=== PATIENT | male | born 1960 | race Caucasian/White ===

== ENCOUNTER → 2023-07-31 06:22 | Day surgery (SDC) | payer MEDICARE, OTHER, SELFPAY ==
[2023-07-31 08:05] LABS: Glucose - Point of Care 186 mg/dl (70-99)
== END ==
LOC: GI 06:22
PROVIDERS: ATTENDING PHYSICIAN Internal Medicine Gastroenterology
DX: K21.00 Gastro-esophageal reflux disease with esophagitis, without bleeding (principal); K22.10 Ulcer of esophagus without bleeding; Z53.8 Procedure and treatment not carried out for other reasons
CPT/HCPCS: 43235; 82962; G0378

== ENCOUNTER 2023-07-31 11:53 | Inpatient (IN) | payer MEDICARE, OTHER, SELFPAY ==
[2023-07-31] VITALS (8 sets, daily range): BP systolic 123–172; BP diastolic 57–121; BMI 29.5; BMI 28.8
[2023-07-31 09:37] LABS: % Basophils 0.5 % (0-2); % Eosinophils 0.3 % (0-6); % Immature Granulocytes 0.6 % (0-0.5); % Lymphocytes 2.5 % (20.5-51.1); % Monocytes 6.7 % (1.7-9.3); % Neutrophils 89.4 % (42.2-75.2); Absolute Basophils 0.1 10^3/uL (0-0.2); Absolute Immature Granulocytes 0.1 10^3/uL (0-0.05); Absolute Lymphocytes 0.3 10^3/uL (1.2-3.4); Absolute Monocytes 0.9 10^3/uL (0.1-0.6); Absolute Neutrophils 11.7 10^3/uL (1.4-6.5); Hematocrit 27.5 % (39.0-52.0); Hemoglobin 9.3 g/dL (13.0-18.0); Mean Corp Hgb Conc. 33.8 g/dL (33.0-37.0); Mean Corpuscular Hgb 31.2 pg (27.0-31.0); Mean Corpuscular Volume 92.3 fL (80.0-94.0); Mean Platelet Volume 9.4 fL (7.4-10.4); Nucleated Red Blood Cells % 0 % (-); Platelet Count 150 10^3/uL (130-400); Red Blood Cell Count 2.98 10^6/uL (4.70-6.10); Red Cell Dist. Width 13.5 % (11.5-14.5); White Blood Cell Count 13.1 10^3/uL (4.8-10.8)
[2023-07-31 09:47] LABS: ALT (SGPT) 30 U/L (0-50); AST (SGOT) 33 U/L (17-59); Albumin 3.9 g/dl (3.5-5.0); Alkaline Phosphatase 122 U/L (38-126); Blood Urea Nitrogen 38 mg/dl (9-20); Calcium 8.7 mg/dl (8.4-10.2); Carbon Dioxide 17 mmol/L (22-30); Chloride 104 mmol/L (98-107); Estimated Creatinine Clearance 32 ml/min; Glucose 182 mg/dl (70-99); Potassium 4.8 mmol/L (3.5-5.1); Sodium 130 mmol/L (135-145); Total Protein 6.4 g/dl (6.3-8.2); eGFR 29.76
[2023-07-31 10:00] LABS: NT-proBNP 4730 pg/ml; Troponin I < 0.012 ng/ml
--- NOTE | 2023-07-31 10:05 | ED.GENMED ---
History of Present Illness
General
Chief Complaint: Breathing Problem
Source: patient and spouse
Time Seen by Provider: 07/31/23 09:04
Travel History
Have you had any contact with someone who has COVID-19?: No
Do you have any symptoms of coronavirus? Fever > 100 degrees, chills, cough, shortness of breath, sore throat, loss of taste or smell, muscle aches, or headache?: No
History of Present Illness
History of Present Illness:
63-year-old male with history of kidney transplant who presents with progressive dyspnea over the last week. Patient states that initially was just when he moves around but now he is severely short of breath at night when he tries to lay flat. He
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 He states he has been very stable since his renal transplant. No fevers. Does admit to bilateral lower extremity swelling. No chest pain
Past History
Past History
ED Past Medical History: HTN, NIDDM and Other (renal transplant)
ED Past Surgical History: Urological (Kidney transplant 2019)
Social History
Tobacco: Former smoker
Alcohol: Daily (Wine)
Personal:
Living: with family
Employment: Employed
Phy Exam
Physical Exam
Physical Exam:
CONSTITUTIONAL Patient alert and oriented to person, place and time. Well-appearing. Vital signs reviewed.
HEAD atraumatic, normocephalic.
EYES eyelids normal to inspection, Extraocular muscles intact, Conjunctiva normal, Sclera normal.
NECK normal range of motion, Trachea midline, no jugular venous distention.
RESPIRATORY CHEST No respiratory distress noted, Chest expansion equal, diminished at bilateral bases.
CARDIOVASCULAR regular rate and rhythm, Heart sounds normal.
ABDOMEN No distention.
BACK normal inspection, no obvious deformities
UPPER EXTREMITY range of motion normal, Motor strength normal, no cyanosis, no edema.
LOWER EXTREMITY range of motion normal, Motor strength normal, no cyanosis, bilateral lower extremity edema.
NEURO Speech normal, No focal motor deficits, [place] coma scale 15, Memory normal, Cranial Nerves intact to screening exam.
SKIN skin warm, dry, and normal in color.
PSYCHIATRIC patient oriented to person place and time, Normal affect.
Scores
Heart Failure Risk
Heart Failure Risk Score: Not Applicable
Course
Orders/Labs/Results
Orders:
Orders
07/31/23 09:25
Complete Blood Count/With Diff Urgent
Comprehensive Metabolic Panel Urgent
Pro-BNP [NT-proBNP] Urgent
Troponin I Urgent
07/31/23 09:39
CR Chest - 2 Views Urgent
Comment:
Reason For Exam: sob
07/31/23 10:04
Furosemide [Lasix] 40 mg IV NOW STA
07/31/23 10:54
Electrocardiogram (*1) Urgent
Reason for Study: Shortness of Breath
EKG- Treatment ONCE
07/31/23 11:33
Admit/Transfer Patient As Directed
Co-Sign Provider:
Level of Care: Inpatient admission
Assign to:: Telemetry
Physician / Group: Serafin
Diagnosis: CHF
Reason for Telemetry: Acute Heart Failure
Date to Stop Telemetry: 08/03/23
Time to Stop Telemetry: 11:00
Reason for Hospitalization: See progress note
Expected length of stay greater than two midnights?: Yes
ELOS- Estimated Length of Stay in days: 3
I certify the patient meets the requirements for IP care: Yes
07/31/23 11:39
Code Status As Directed
Resuscitation Status: Full Code
07/31/23 14:07
Acetaminophen [Tylenol] 1,000 mg PO BIDPRN PRN
Amlodipine [Norvasc] 10 mg PO DAILY
Aspirin Chewable [Low Strength Aspirin] 81 mg PO DAILY
Escitalopram Oxalate [Lexapro] 10 mg PO DAILY
Labetalol [Trandate] 200 mg PO BID
Mycophenolic Acid Dr [Myfortic Delayed Rel.] 360 mg PO BID
Prednisone [Deltasone] 5 mg PO DAILY
Sodium Bicarbonate 650 mg PO DAILY
07/31/23 14:07
Echo 2D MMode Color/Doppler Routine
Reason for Study: Eval EF;New CHF; Renal transplant
CARDIOLOGY CONSULT Routine
Consulting Provider: Gilbert Decker
Was physician already notified: Yes
Reason for consult: CHF
NEPHROLOGY CONSULT Routine
Consulting Provider: Jenny Cristobal
Was physician already notified: Yes
Reason for consult: CHF/Renal transplant
Activity As Directed
Activity Level: As Tolerated
I&O [Intake/ Output] As Directed
Frequency: q12h
Oxygen Therapy [O2 Therapy] [RESP] Routine
Titrate/Wean O2 to maintain O2 sat greater than (%): 93
DX Deep Vein Thrombosis Video Routine
07/31/23 14:30
Sitagliptin Phosphate [Januvia] 50 mg PO DAILY
07/31/23 16:30
Insulin Aspart Pen [Novolog Flexpen] 2 units SC AC
07/31/23 20:00
Heparin 5,000 units SC Q12
07/31/23 22:00
Gabapentin [Neurontin] 300 mg PO HS
Pravastatin Sodium [Pravachol] 10 mg PO HS
08/01/23 06:14
Basic Metabolic Panel IN AM
CBC/No Diff [Complete Blood Count/No Diff] IN AM
08/01/23 08:00
Furosemide [Lasix] 40 mg IV DAILY
08/03/23 11:00
DC Protocol for Telemetry ONCE
Abnormal Lab Results
07/31/23
09:25
WBC 13.1 H 10^3/uL
(4.8-10.8)
RBC 2.98 L 10^6/uL
(4.70-6.10)
Hgb 9.3 L g/dL
(13.0-18.0)
Hct 27.5 L %
(39.0-52.0)
MCH 31.2 H pg
(27.0-31.0)
Abs Immat Gran (auto) 0.1 H 10^3/uL
(0-0.05)
Absolute Neuts (auto) 11.7 H 10^3/uL
(1.4-6.5)
Absolute Lymphs (auto) 0.3 L 10^3/uL
(1.2-3.4)
Absolute Monos (auto) 0.9 H 10^3/uL
(0.1-0.6)
Immature Gran % 0.6 H %
(0-0.5)
Neutrophils % 89.4 H %
(42.2-75.2)
Lymphocytes % 2.5 L %
(20.5-51.1)
Sodium 130 L mmol/L
(135-145)
Carbon Dioxide 17 L mmol/L
(22-30)
BUN 38 H mg/dl
(9-20)
Creatinine 2.4 H mg/dL
(0.7-1.3)
Glucose 182 H mg/dl
(70-99)
07/31/23 09:25
07/31/23 09:25
Vital Signs
Initial and Last Documented VS:
Initial Vital Signs
Temp Pulse Resp BP Pulse Ox
98.9 F 76 22 159/87 89
07/31/23 09:00 07/31/23 09:00 07/31/23 09:00 07/31/23 09:00 07/31/23 09:00
Last Documented Vital Signs
Temp Pulse Resp BP Pulse Ox
98.1 F 68 16 148/79 91
08/02/23 11:26 08/02/23 11:26 08/02/23 11:26 08/02/23 11:26 08/02/23 11:26
MDM/Problems Addressed
MDM/Problems Addressed:
CHF, s/p renal transplant
*Radiology
Radiology exam reviewed: preliminary read by ED provider (CHF)
*Pulse Oximetry
Patient hypoxic: no
*Critical Care Note
Total Time (30-74mins, 75-104mins- exclusive of procedures): Not Applicable
ED Attending Note
-
Portions of this chart may have been created with voice recognition software.� Occasional wrong word or��sound alike� substitutions may have occurred due to the inherent limitations of voice recognition software.
Discharge Plan
Departure
Patient Disposition: Admit
Date of Disposition: 07/31/23
Time of Disposition: 10:05
Admit to: Telemetry
Presentation/result/management discussed w/ accepting MD/DO: Hospitalist
Discharge Problem:
CHF (congestive heart failure)
Interventions
Interventions:
*Risk Screen - Suicide Last Done: 07/31/23 09:00
*General Assessment Last Done: 07/31/23 09:00
*Neglect/Abuse Screening Last Done: 07/31/23 09:00
ED- Fall Risk Assessment Last Done: 07/31/23 10:17
*ED COVID-19 Vaccine History Last Done: 07/31/23 09:12
*Nursing Disposition Last Done: 07/31/23 14:03
ED- Cardiac Assessment Last Done: 07/31/23 09:16
ED- Pulmonary Assessment Last Done: 07/31/23 09:16
Discharge Date and Time
Discharge Date/Time: 07/31/23 14:03
[2023-07-31] MEDS: LASIX 40 MG IV (10:15)
--- NOTE | 2023-07-31 12:08 | CON.CAR ---
Addendum entered and electronically signed by Gilbert Decker MD 07/31/23 13:12:
I saw and examined the patient.
The PUMPER GAGER APPRENTICE or PA's note was reviewed and I agree with the note.
Comment: General: Well developed, well nourished in NAD.
Neck: Supple, no JVD, HJR, carotids +2 B/L, no bruits bilaterally.
Heart: Non displaced PMI, RRR, no murmurs, No S3, S4, no rubs.
Lungs: Clear to auscultation bilaterally, no wheeze, rhonchi, rubs bilaterally,
normal expiratory phase.
Abdomen: Normal bowel sounds, soft, non-tender, non-distended.
Extremities: No clubbing, cyanosis or edema bilaterally.
Neuro: Grossly nonfocal, awake, alert and oriented x3.
Eugenio has history of renal transplant with stage IIIb renal insufficiency, hypertension, carotid disease status post bilateral carotid endarterectomy, diabetes, hypertension, hypercholesterolemia, severe thickening of distal esophagus by imaging.
He presents for at least a 15 pound weight gain with increasing lower extremity edema and shortness of breath. Findings are consistent with acute diastolic CHF. Will assess with diuresis. Check echocardiogram. Will need to follow renal function
closely. Discussed with patient and at bedside
Original Note:
Consultation
Consultation Request
Date/Time Consultation Requested: 07/31/23
Date/Time Consultation Performed: 07/31/23
Requesting Provider: Dr. Coulter in the ER
Performing Provider: Dr. Decker
Reason for Consultation: Acute HF, s/p renal transplant
Medical History
-
History of Present Illness:
Patient came to [facility] today with orthopnea and SOB and is now being admitted with acute HF and cardiology has been consulted. Patient has a h/o diabetic nephropathy and was previously on PD. He then had a renal transplant in 2019 at [facility]. He had acute
cellular rejection and now has continued post-transplant failure that is managed at [facility]. Patient was admitted to 05/02/23 until 05/06/23 with HTN urgency. Nephrology followed patient throughout that admission, of note the patient previously
followed with Dr. Horton, but switched to a [place] olive picker a year ago. Medication changes from that admission included the discontinuation of losartan and possibly lisinopril and the addition of labetalol 200 mg BID. Patient does not take a
diuretic. Patient says that he noticed weeks ago that he was SOB and within the last few days started with orthopnea. He has noticed LE edema and bloating, but no changes in appetite. He likes to drink a lot of water.
PMH:
CKD 3b
Recent admission for DKA and HTN urgency 05/02/23 until 05/06/23
s/p renal transplant at [facility] 01/2020
HTN
s/p living, unrelated renal transplant RLQ at [facility] 01/15/20
previously on PD
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
was not taking mycophenolate 2020 until 2022, he forgot
Chronic immunosuppressed state
Carotid artery disease s/p B/L carotid endarterectomy 2017
Type 2 diabetes
Diabetic nephropathy
Hypertension
Hypercholesterolemia
Depression
Anemia
Hyponatremia
Severe thickening of distal esophagus by imaging
Past Medical History
Past Medical History: Other (in HPI)
Past Surgical History: Cardiac (right CEA 08/2017, left CEA 02/2018) and Other (renal transplant at [facility] 01/2020)
Social History
Tobacco: Non-Smoker
Alcohol: Occasional
Drug: None
Personal:
Living: With Family
Family History
Family History: CAD
Allergies / Home Medications
Allergy/AdvReac Type Severity Reaction Status Date / Time
No Known Allergies Allergy Verified 07/31/23 08:59
Medication Instructions Recorded Confirmed Type
insulin glargine 100 unit/mL (3 3 units SC DAILY@1200 Diabetes 07/30/20 07/31/23 History
mL) subcutaneous pen (Lantus
Solostar U-100 Insulin)
linagliptin 5 mg tablet (Tradjenta) 5 mg PO DAILY Diabetes 07/30/20 07/31/23 History
insulin aspart U-100 100 unit/mL 2 units SC MEALS Diabetes 08/03/20 07/31/23 History
(3 mL) subcutaneous pen (Novolog
FlexPen U-100 Insulin aspart)
aspirin 81 mg chewable tablet 81 mg PO DAILY Blood clot 09/02/21 07/31/23 History
prevention/tx
gabapentin 300 mg capsule 300 mg PO HS Pain 09/02/21 07/31/23 History
acetaminophen 500 mg tablet 1,000 mg PO BIDPRN PRN mild pain 05/02/23 07/31/23 History
(Tylenol Extra Strength)
amlodipine 10 mg tablet (Norvasc) 10 mg PO DAILY Blood Pressure 05/02/23 07/31/23 History
escitalopram oxalate 10 mg tablet 10 mg PO DAILY Mental 05/02/23 07/31/23 History
(Lexapro) Health/Anxiety
losartan 25 mg tablet 25 mg PO DAILY Blood Pressure 05/02/23 07/31/23 History
mycophenolate sodium 180 mg 360 mg PO BID renal transplant 05/02/23 07/31/23 History
tablet,delayed release
pravastatin 10 mg tablet 10 mg PO HS High Cholesterol 05/02/23 07/31/23 History
prednisone 5 mg tablet 5 mg PO DAILY Anti-Inflammatory 05/02/23 07/31/23 History
sodium bicarbonate 650 mg tablet 650 mg PO DAILY Supplement 05/02/23 07/31/23 History
Medical Marijuana 0.5 gummy PO HSPRN PRN sleep 07/31/23 07/31/23 History
labetalol 200 mg tablet 200 mg PO BID Blood Pressure 07/31/23 07/31/23 History
Review of Systems
-
History Source: Patient and Family ( bedside helping with HPI)
All other systems: Negative unless noted
Physical Exam
Vital Signs
Temp Pulse Resp BP Pulse Ox
98.9 F 71 20 171/88 92
07/31/23 09:00 07/31/23 12:00 07/31/23 12:00 07/31/23 12:00 07/31/23 12:00
GEN: NAD. AAOx3
HEENT: EOMI, MMM
LUNGS: Decreased BS and rales B/L
CV: Reg, S1/S2, no murmur
ABD: Mildly distended, soft, BS+, NT
EXT: +1-2 pitting edema to upper thighs B/L. No clubbing, cyanosis or lesions B/L
NEURO: Gross non-focal
SKIN: Warm, dry and pink. No rash
Lab Results
07/31/23 09:25
07/31/23 09:25
Troponin I < 0.012 ng/ml 07/31/23 09:25
Pri-Y-Ioizsnheyyo Pept 4730 pg/ml 07/31/23 09:25
Impression / Plan
-
PCP: Dr. Vincent
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 ISABEL Ruiz in 2020
Nephrology: Dr. Escobar in [place], renal transplant managed at [facility]
Impression:
Acute HFpEF
Recent admission for DKA and HTN urgency 05/02/23 until 05/06/23
SONALI on CKD 3b
s/p renal transplant at [facility] 01/2020
HTN
s/p living, unrelated renal transplant RLQ at [facility] 01/15/20
previously on PD
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
was not taking mycophenolate 2020 until 2022, he forgot
Chronic immunosuppressed state
Carotid artery disease s/p B/L carotid endarterectomy 2017
Type 2 diabetes
Diabetic nephropathy
Hypertension
Hypercholesterolemia
Depression
Anemia
Pseudohyponatremia
Severe thickening of distal esophagus by imaging
Lexiscan nuclear stress test 2019: Small mild fixed defect in basal inferior, mid inferior and apical inferior segment consistent with STA, EF 50 to 55%
ECHO 06/17/19: EF 55%, no significant valvular disease, mild LVH
Plan:
-Patient came to [facility] today with orthopnea and SOB and is now being admitted with acute HF and cardiology has been consulted. Patient has a h/o diabetic nephropathy and was previously on PD. He then had a renal transplant in 2019 at [facility]. He had
acute cellular rejection and now has continued post-transplant failure that is managed at [facility]. Patient was admitted to 05/02/23 until 05/06/23 with HTN urgency. Nephrology followed patient throughout that admission, of note the patient previously
followed with Dr. Horton, but switched to a [place] olive picker a year ago. Medication changes from that admission included the discontinuation of losartan and possibly lisinopril and the addition of labetalol 200 mg BID. Patient does not take a
diuretic. Patient says that he noticed weeks ago that he was SOB and within the last few days started with orthopnea. He has noticed LE edema and bloating, but no changes in appetite. He likes to drink a lot of water.
-Dry weight at last discharge 05/06/23 was 161 lbs and patient weighs 199 lbs by ER bed scale. Patient does not weight himself at home, but has noticed orthopnea and edema. He has pitting edema to the upper thighs.
-Patient was not taking a diuretic prior to admission. Patient was given Lasix 40 mg IV x1 in the ER. Recommend Lasix 40 mg IV daily with daily BMP.
-Cre was 2.1 at last discharge 04/2023 and is up to 2.4 in the ER today by my review. Patient now following with a olive picker in [place] and his renal transplant is managed by [facility]. There is concern for post-transplant failure and he had FSGS
on biopsies in 2021 and 2022.
-Follow BP. Patient with HTN urgency last admission. Would continue usual doses of amlodipine 10 mg daily and labetalol 200 mg BID for now. Nephrology should see the patient and decide if they want him back on losartan while being diuresed.
-Patient was on PD prior to his renal transplant in 2019.
-Check echo, EF was 55% by last echo 06/17/19.
-Patient is anxious about fluid restriction. Patient with a h/o hyponatremia and not following fluid restriction. Will start at 64 oz a day and then tighten fluid restriction as needed.
-ECG reviewed by me with SR and no ischemic changes.
--- NOTE | 2023-07-31 12:09 | HPS.HSE ---
Family Physician
-
Family Physician: Germaine Vincent
Chief Complaint
-
Lower extremity edema shortness of breath
History of Present Illness
61-year-old gentleman with a prior history of renal transplant on immunosuppressive agents presents with the above symptoms.
About a week and half he has been having increasing lower extremity edema. Later on he started noticed exertional shortness of breath. Last 2 days he was having orthopnea. No chest pain but when he would become short of breath he feels pressure
in the chest. No palpitations.
Denies prior history of heart failure. Not on diuretics.
Denies history of CAD or DC.
Follows with local vegetable tester but cannot tell the reasons for follow-up.
A week ago he saw his primary ship engineer who has stopped his losartan.
Patient states he is on 48 ounces of fluid restriction which he tries to maintain.
Denies any cough, fever. No nausea or vomiting. No lightheadedness or dizziness.
No recent changes in his health before all the symptoms started.
Medical History
Past Medical History
Past Medical History: Reports HTN, IDDM, Renal Failure and Other (Esophageal ulcers and duodenal ectasias)
Past Surgical History: Reports Other (Renal transplant)
Social History
Tobacco: Non-smoker
Alcohol: None
Drug: None
Personal:
Living: With Family
Family History
Family History: Not pertinent
Allergies / Home Medications
Allergies reflects when Allergies were last updated in [facility].
Home Medications with original date entered in [facility]
Allergy/Medication List:
Allergies
Allergy/AdvReac Type Severity Reaction Status Date / Time
No Known Allergies Allergy Verified 07/31/23 08:59
Home Medications
insulin glargine 100 unit/mL (3 mL) subcutaneous pen (Lantus Solostar U-100 Insulin) 3 units SC DAILY@1200 Diabetes 07/30/20
linagliptin 5 mg tablet (Tradjenta) 5 mg PO DAILY Diabetes 07/30/20
insulin aspart U-100 100 unit/mL (3 mL) subcutaneous pen (Novolog FlexPen U-100 Insulin aspart) 2 units SC MEALS Diabetes 08/03/20
aspirin 81 mg chewable tablet 81 mg PO DAILY Blood clot prevention/tx 09/02/21
gabapentin 300 mg capsule 300 mg PO HS Pain 09/02/21
acetaminophen 500 mg tablet (Tylenol Extra Strength) 1,000 mg PO BIDPRN PRN mild pain 05/02/23
amlodipine 10 mg tablet (Norvasc) 10 mg PO DAILY Blood Pressure 05/02/23
escitalopram oxalate 10 mg tablet (Lexapro) 10 mg PO DAILY Mental Health/Anxiety 05/02/23
losartan 25 mg tablet 25 mg PO DAILY Blood Pressure 05/02/23
mycophenolate sodium 180 mg tablet,delayed release 360 mg PO BID renal transplant 05/02/23
pravastatin 10 mg tablet 10 mg PO HS High Cholesterol 05/02/23
prednisone 5 mg tablet 5 mg PO DAILY Anti-Inflammatory 05/02/23
sodium bicarbonate 650 mg tablet 650 mg PO DAILY Supplement 05/02/23
Medical Marijuana 0.5 gummy PO HSPRN PRN sleep 07/31/23
labetalol 200 mg tablet 200 mg PO BID Blood Pressure 07/31/23
Review of Systems
-
A 12 point ROS was completed and negative except as noted: Yes
Physical Exam
Vital Signs
Vital Signs
Temp Pulse Resp BP Pulse Ox
98.9 F 71 20 171/88 92
07/31/23 09:00 07/31/23 12:00 07/31/23 12:00 07/31/23 12:00 07/31/23 12:00
Physical Exam
General: Comfortable
HEENT: Moist mucous membranes
Respiratory: No Wheezes or Crackles
Cardiac: S1/S2 and Regular Rhythm
GI: Soft, Non Tender, Non Distended and Normal Bowel Sounds
Musculoskeletal: Edema, Left Lower Extremity and Edema, Right Lower Extremity (2+ bl)
Neuro: AO x 3 and No Motor Deficits
Psych: Calm
Laboratory Results
-
07/31/23:25
07/31/23:
Laboratory Results
Total Bilirubin 1.0 mg/dl (0.2-1.3) 07/31/23:
AST 33 U/L (17-59) 07/31/23:
ALT 30 U/L (0-50) 07/31/23:
Alkaline Phosphatase 122 U/L (38-126) 07/31/23:
Troponin I < 0.012 ng/ml 07/31/23:
Data Reviewed
-
Diagnostic Radiology: Report Reviewed by me (cxr)
Lab Data: Labs Reviewed by me
Impression/Plan
-
Acute new onset of CHF -patient presents with progressive lower extremity edema, exertional shortness of breath and orthopnea. He has a chest x-ray evidence of CHF. Negative troponins. EKG without acute changes. Unclear etiology for CHF. Last
known EF in 2020 was 55%. Patient with chronic kidney disease/renal transplant. He also has hypertension.
Admit to telemetry.
Continue with IV Lasix.
Continue with his antihypertensives and follow blood pressure readings and optimize treatments as needed
Check an echocardiogram.
Consult cardiology.
Chronic kidney disease stage IIIb. Today's creatinine is 2.4 which is higher than 2.11 from April. Unclear if it is heart failure related. Will continue to follow on diuresis. Patient is known to have renal transplant. Consult nephrology.
Hypertension-continue with his home medication and optimize treatments as needed.
Diabetes mellitus type 2 on insulin-continue with his home insulin regimen and follow Accu-Cheks.
Full code
--- NOTE | 2023-07-31 15:00 | CON.MD ---
Consultation - Medical
-
Assessment:
Acute on chr CHF pEF
Renal transplant (02/18/20) [facility]-living unrelated
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
Hypertension with history of orthostasis
[place] with CKD 3b -last cr 2.1 at [facility] visit this month-Dr Leon
CHr met acidosis
Carotid artery disease s/p B/L carotid endarterectomy 2017
Type 2 diabetes
Diabetic nephropathy
Hypercholesterolemia
Depression
Anemia
Hyponatremia
Severe thickening of distal esophagus by imaging
Plan:
A/w CHF flare
[facility] -suspect cardiorenal, check UA, known h/o FSGS on biopsy with proteinuria
cotn pred and MMF, off envarsus for few months now
pt still on monthly infusion at [facility]
cont diuresis with lasix
fluid restriction 50 ounces/day, was drinking more at home
hyponatremia likely dilutional with CHF
BP stable, losartan held since recent nephro visit
cotn po bciarb for chr met acidosis
follow labs
[id number]
[2023-07-31] MEDS: SODIUM BICARBONATE 650 MG PO (15:12)
[2023-07-31] MEDS: NORVASC 10 MG PO (15:12)
[2023-07-31] MEDS: LOW STRENGTH ASPIRIN 81 MG PO (15:12)
[2023-07-31] MEDS: LEXAPRO 10 MG PO (15:12)
[2023-07-31] MEDS: DELTASONE 5 MG PO (15:12)
[2023-07-31] MEDS: MYFORTIC DELAYED REL. 360 MG PO ×2 (15:13→20:42)
[2023-07-31] MEDS: LANTUS 0.0299999999999999989 UNITS SC (15:14)
[2023-07-31] MEDS: TRANDATE 200 MG PO ×2 (15:14→20:41)
[2023-07-31] MEDS: JANUVIA 50 MG PO (15:19)
[2023-07-31] MEDS: ZOFRAN 4 MG IV (15:45)
[2023-07-31 15:55] LABS: Glucose - Point of Care 178 mg/dl (70-99)
--- NOTE | 2023-07-31 16:17 | PTCARENOTE ---
pt admitted from ED AOx3, B/L LL diminished, 93% on 4L. NSR. abd round obese hypoactive BS. pt reports last BM this AM. pt complaining of nausea. prn zofran obtained. skin CDI +1 pitting LE edema.
[2023-07-31] MEDS: NOVOLOG FLEXPEN 2 UNITS SC (17:02)
[2023-07-31] MEDS: NOVOLOG FLEXPEN-LOW RESISTANCE 1 UNITS SC (17:03)
[2023-07-31 17:24] LABS: Glucose - Point of Care 172 mg/dl (70-99)
[2023-07-31] MEDS: PRAVACHOL 10 MG PO (20:41)
[2023-07-31] MEDS: NEURONTIN 300 MG PO (20:42)
[2023-07-31] MEDS: HEPARIN 5000 UNITS SC (20:42)
[2023-07-31 21:31] LABS: Glucose - Point of Care 249 mg/dl (70-99)
[2023-07-31 23:48] LABS: Urine Albumin 3+ (Neg - Trace); Urine Bilirubin Negative (Negative); Urine Character Clear (Clear); Urine Color Yellow; Urine Glucose 1+ (Negative); Urine Ketone Negative (Negative); Urine Leukocyte Negative (Negative); Urine Nitrite Negative (Negative); Urine Occult Blood Trace (Negative); Urine Urobilinogen Negative (Neg - 1+)
[2023-08-01 00:15] LABS: Urine Amorphous Seen; Urine Bacteria Few (Negative); Urine Red Blood Cell 0-2 /HPF (0-2); Urine White Cell 0-2 /HPF (0-5)
[2023-08-01 03:35] VITALS: BP 166/88
[2023-08-01 06:00] VITALS: BMI 28.6
[2023-08-01 06:49] LABS: Hematocrit 26.5 % (39.0-52.0); Hemoglobin 8.9 g/dL (13.0-18.0); Mean Corp Hgb Conc. 33.6 g/dL (33.0-37.0); Mean Corpuscular Hgb 31.4 pg (27.0-31.0); Mean Corpuscular Volume 93.6 fL (80.0-94.0); Mean Platelet Volume 9.6 fL (7.4-10.4); Platelet Count 139 10^3/uL (130-400); Red Blood Cell Count 2.83 10^6/uL (4.70-6.10); Red Cell Dist. Width 13.2 % (11.5-14.5); White Blood Cell Count 12.2 10^3/uL (4.8-10.8)
[2023-08-01 07:33] LABS: Glucose - Point of Care 189 mg/dl (70-99)
[2023-08-01 07:38] LABS: Blood Urea Nitrogen 38 mg/dl (9-20); Calcium 8.7 mg/dl (8.4-10.2); Carbon Dioxide 21 mmol/L (22-30); Chloride 98 mmol/L (98-107); Estimated Creatinine Clearance 32 ml/min; Glucose 160 mg/dl (70-99); Potassium 4.2 mmol/L (3.5-5.1); Sodium 129 mmol/L (135-145); eGFR 29.76
[2023-08-01 07:39] VITALS: BP 147/72
[2023-08-01 08:31] LABS: Glycohemoglobin (HgbA1c) 5.9 % (4.0-5.6)
[2023-08-01] MEDS: HEPARIN 5000 UNITS SC ×2 (08:42→20:37)
[2023-08-01] MEDS: LASIX 40 MG IV (08:42)
[2023-08-01] MEDS: LOW STRENGTH ASPIRIN 81 MG PO (08:43)
[2023-08-01] MEDS: NORVASC 10 MG PO (08:43)
[2023-08-01] MEDS: SODIUM BICARBONATE 650 MG PO (08:44)
[2023-08-01] MEDS: DELTASONE 5 MG PO (08:44)
[2023-08-01] MEDS: LEXAPRO 10 MG PO (08:44)
[2023-08-01] MEDS: JANUVIA 50 MG PO (08:44)
[2023-08-01] MEDS: NOVOLOG FLEXPEN-LOW RESISTANCE 1 UNITS SC ×2 (08:44→17:21)
[2023-08-01] MEDS: TRANDATE 200 MG PO ×2 (08:44→20:37)
[2023-08-01] MEDS: MYFORTIC DELAYED REL. 360 MG PO ×2 (09:00→20:36)
[2023-08-01 11:01] VITALS: BP 142/73
[2023-08-01] MEDS: NOVOLOG FLEXPEN 2 UNITS SC ×3 (11:16→17:20)
[2023-08-01] MEDS: TYLENOL 1000 MG PO (11:19)
--- NOTE | 2023-08-01 11:20 | W.PN.NEPH.PH ---
Today's Communication / Plan
-
cont lasix
Assessment/Plan
-
Assessment:
Acute on chr CHF pEF
Renal transplant (02/18/20) [facility]-living unrelated
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
Hypertension with history of orthostasis
Everett with CKD 3b -last cr 2.1 at [facility] visit this month-Dr Leon
CHr met acidosis
Carotid artery disease s/p B/L carotid endarterectomy 2017
Type 2 diabetes
Diabetic nephropathy
Hypercholesterolemia
Depression
Anemia
Hyponatremia
Severe thickening of distal esophagus by imaging
Plan:
A/w CHF flare
EVERETT -suspect cardiorenal, check UA, known h/o FSGS on biopsy with proteinuria
cotn pred and MMF, off envarsus for few months now, bland UA
pt still on monthly infusion at [facility]
cont diuresis with lasix 40BID
fluid restriction 48 ounces/day, was drinking more at home, echo normal EF
hyponatremia likely dilutional with CHF, if worsens may need samsca
BP expect to improve with diuresis, losartan held since recent nephro visit
cont po bicarb for chr met acidosis
follow labs�
-
-
Date of Service: August 01, 2023
CC / HPI / ROS
-
Chief Complaint:
EVERETT with CKD , KTP
History of Present Illness:
cr no change at 2.4, non oliguric with lasix
wt is decreasing
hb 8.9, WBC improving
sodium low at 129
met acidosis better at 21
Review of Systems:
no cp, sob better but remains on 6lit O2
no dysuria
Labs
-
Labs:
WBC 12.2 10^3/uL (4.8-10.8) H 08/01/23 06:14
RBC 2.83 10^6/uL (4.70-6.10) L 08/01/23 06:14
Hgb 8.9 g/dL (13.0-18.0) L 08/01/23 06:14
Hct 26.5 % (39.0-52.0) L 08/01/23 06:14
Plt Count 139 10^3/uL (130-400) 08/01/23 06:14
Sodium 129 mmol/L (135-145) L 08/01/23 06:14
Potassium 4.2 mmol/L (3.5-5.1) 08/01/23 06:14
Chloride 98 mmol/L (98-107) 08/01/23 06:14
Carbon Dioxide 21 mmol/L (22-30) L 08/01/23 06:14
BUN 38 mg/dl (9-20) H 08/01/23 06:14
Creatinine 2.4 mg/dL (0.7-1.3) H 08/01/23 06:14
eGFR 29.76 08/01/23 06:14
Glucose 160 mg/dl (70-99) H 08/01/23 06:14
Calcium 8.7 mg/dl (8.4-10.2) 08/01/23 06:14
Haq-X-Ohmhbwmjaef Pept 4730 pg/ml 07/31/23 09:25
Albumin 3.9 g/dl (3.5-5.0) 07/31/23 09:25
Physical Exam
-
Vital Signs:
Vital Signs
Temp Pulse Resp BP Pulse Ox
99.7 F 76 18 142/73 91
08/01/23 11:01 08/01/23 11:01 08/01/23 11:01 08/01/23 11:01 08/01/23 11:01
Cardiovascular:: Regular rate and rhythm
Lung Excursion:: Normal (decreased)
Abdomen:: Nontender and Soft
Extremity Edema:: None: Bilateral: (trace)
Oreilly Catheter: No
[2023-08-01 11:33] LABS: Glucose - Point of Care 253 mg/dl (70-99)
--- NOTE | 2023-08-01 11:44 | W.PN.HOSP.TC ---
Today's Communication/Plan
-
Continue with IV diuresis per nephrology
Follow weights and creatinine.
Follow-up WBC.
Assessment / Plan
Assessment / Plan
Acute new onset of CHF -patient presents with progressive lower extremity edema, exertional shortness of breath and orthopnea.� He has a chest x-ray evidence of CHF.� Negative troponins.� EKG without acute changes.� Last known EF in 2019 was 55%.�
Patient with chronic kidney disease/renal transplant.� He also has hypertension.
Repeat echo shows EF of 54% and mild MR.
Patient feeling improved. Still requiring oxygen at 4 L.
Continue with IV Lasix.
Continue with his antihypertensives-blood pressure mostly under goal today.
Appreciate cardiology input
Chronic kidney disease stage IIIb.� Today's creatinine is 2.4 which is higher than his baseline. unclear if it is heart failure related.� Will continue to follow on diuresis.� Patient is known to have renal transplant.� Appreciate nephrology input
Hyponatremia-suspect related to CHF-continue to follow on dialysis
Leukocytosis without any fever. Nontoxic looking. Unclear if reactive. Improving without treatments..
Hypertension-continue with his home medication and optimize treatments as needed.
Diabetes mellitus type 2 on insulin-continue with his home insulin regimen and follow Accu-Cheks.
Full code
Anticipated Discharge: > 48 hours
Subjective/Interval History
-
Date of Service: August 01, 2023
Feeling better with breathing.
Denies any chest pain or palpitations.
No cough.
No fever.
Objective Data
-
Labs:
Laboratory Results
08/01/23
06:14
WBC 12.2 H
Hgb 8.9 L
Hct 26.5 L
Plt Count 139
Sodium 129 L
Potassium 4.2
Chloride 98
Carbon Dioxide 21 L
BUN 38 H
Creatinine 2.4 H
Glucose 160 H
Calcium 8.7
Vital Signs:
Vital Signs
Temp Pulse Resp BP Pulse Ox
99.7 F 76 18 142/73 91
08/01/23 11:01 08/01/23 11:01 08/01/23 11:01 08/01/23 11:01 08/01/23 11:01
I&O
07/31/23 08/01/23 08/02/23
06:59 06:59 06:59
Intake Total 1350 / 1350
Output Total 2475 / 2475
Balance -1125 / -1125
Review of Systems
-
EENT: Denies Sore Throat
Respiratory: Denies Cough
Abdomen/GI: Denies Abdominal Pain, Nausea or Vomiting
Neuro: Denies Dizzy
Physical Exam
-
General: No Apparent Distress
HEENT: Moist Mucous Membranes
Respiratory: Clear to Auscultation
Cardiac: Regular Rhythm and S1/S2
GI: Soft
Musculoskeletal: Edema, Right Lower Extrem and Edema, Left Lower Extrem
Neuro: AO x 3
Psych: Calm
Data Reviewed
-
Labs: Labs Reviewed by me
--- NOTE | 2023-08-01 12:03 | VNURNOTE ---
Home Health Liaison met with patient at bedside to discuss [facility] nurse/therapy, visits, schedule and homebound status. Patient is agreeable and understands that visits at home will be 2-3 x per week to assess and teach medical management. [facility]
brochure provided with contact information. Patient is aware that [facility] will contact them for start of care in 1-2 days after discharge from . [facility] referral completed in [facility].
[2023-08-01] MEDS: LANTUS 0.0299999999999999989 UNITS SC (12:39)
[2023-08-01] MEDS: NOVOLOG FLEXPEN-LOW RESISTANCE 3 UNITS SC (12:39)
--- NOTE | 2023-08-01 12:56 | CM ---
Reviewed chart, met with patient to obtain information for assessment. Patient stated that he lives with his in a one story home with one step to enter. Patient described himself as independent with his ADLs, dressing, bathing, toileting and
ambulates without the use of an AD. 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
Patient was wearing o2 however stated that he is hoping to wean prior to leaving. He denied any other DME at home.
Patient is still employed but is trying to retire. Patient drives and can get himself to all of his appointments and do all of his own shopping.
He has never had VN or been to a SNF. He did do outpatient PT.
He stated that he knows VN is indicated this admission and is agreeable to but is still deciding what he wants to do regarding having the services.
Patient has a prescription plan and uses the [facility] on for all of his medications. His PCP is Dr. Germaine Vincent.
Plan: Case management will continue to follow and assist with discharge planning. Home vrs Home with VN.
--- NOTE | 2023-08-01 14:37 | W.PN.CARDCBS ---
Today's Communication / Plan
-
Stable cardiology status with nephrology managing diuretics
Sign off
Impression / Plan
-
PCP: Dr. Vincent
Primary Solutions Sales Executive: last seen by Dr. ISABEL Ruiz in 2020
Nephrology: Dr. Escobar in [place], renal transplant managed at [facility]
Impression:
Acute HFpEF
Recent admission for DKA and HTN urgency 05/02/23 until 05/06/23
SONALI on CKD 3b
s/p renal transplant at [facility] 01/2020
HTN
s/p living, unrelated renal transplant RLQ at [facility] 01/15/20
previously on PD
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
was not taking mycophenolate 2020 until 2022, he forgot
Chronic immunosuppressed state
Carotid artery disease s/p B/L carotid endarterectomy 2017
Type 2 diabetes
Diabetic nephropathy
Hypertension
Hypercholesterolemia
Depression
Anemia
Pseudohyponatremia
Severe thickening of distal esophagus by imaging
Lexiscan nuclear stress test 2019: Small mild fixed defect in basal inferior, mid inferior and apical inferior segment consistent with STA, EF 50 to 55%
ECHO 06/17/19: EF 55%, no significant valvular disease, mild LVH
Echocardiogram 07/31/2023: Ejection fraction 54%, mild MR
Plan:
Weight is down possibly 6 pounds since admission but remains short of breath and on oxygen
Creatinine remains stable at 2.4 and diuretics being managed by nephrology with renal transplant
Perhaps he might be a candidate for Samsca but hyponatremia
Nephrology managing diureticS
Will sign off
PREADMIT DATA
-[facility] with orthopnea and SOB and is now being admitted with acute HF and cardiology has been consulted. Patient has a h/o diabetic nephropathy and was previously on PD. He then had a renal transplant in 2019 at [facility]. He had
acute cellular rejection and now has continued post-transplant failure that is managed at [facility]. Patient was admitted to 05/02/23 until 05/06/23 with HTN urgency. Nephrology followed patient throughout that admission, of note the patient previously
followed with Dr. Horton, but switched to a [place] sausage stringer a year ago. Medication changes from that admission included the discontinuation of losartan and possibly lisinopril and the addition of labetalol 200 mg BID. Patient does not take a
diuretic. Patient says that he noticed weeks ago that he was SOB and within the last few days started with orthopnea. He has noticed LE edema and bloating, but no changes in appetite. He likes to drink a lot of water.
Progress Note - Solutions Sales Executive
Subjective
Date of Service: August 01, 2023
Still remains short of breath
Objective
Labs:
08/01/23 06:14
08/01/23 06:14
Labs
Hgb 8.9 g/dL (13.0-18.0) L 08/01/23 06:14
Hct 26.5 % (39.0-52.0) L 08/01/23 06:14
Plt Count 139 10^3/uL (130-400) 08/01/23 06:14
Sodium 129 mmol/L (135-145) L 08/01/23 06:14
Potassium 4.2 mmol/L (3.5-5.1) 08/01/23 06:14
BUN 38 mg/dl (9-20) H 08/01/23 06:14
Creatinine 2.4 mg/dL (0.7-1.3) H 08/01/23 06:14
Glucose 160 mg/dl (70-99) H 08/01/23 06:14
Troponins
07/31/23
09:25
Troponin I < 0.012
Vital Signs and I&O:
Vital Signs
Temp Pulse Resp BP Pulse Ox
99.7 F 76 18 142/73 91
08/01/23 11:01 08/01/23 11:01 08/01/23 11:01 08/01/23 11:01 08/01/23 11:01
Vital Signs
Temp Pulse Resp BP Pulse Ox
99.7 F 76 18 142/73 91
08/01/23 11:01 08/01/23 11:01 08/01/23 11:01 08/01/23 11:01 08/01/23 11:01
Intake & Output
07/30/23 07/31/23 08/01/23 08/02/23
06:59 06:59 06:59 06:59
Intake Total 1350 / 1350
Output Total 2475 / 2475
Balance -1125 / -1125
Physical Exam
Physical Exam
General: Well developed, well nourished in NAD.
Neck: Supple, no JVD, HJR, carotids +2 B/L, no bruits bilaterally.
Heart: Non displaced PMI, RRR, no murmurs, No S3, S4, no rubs.
Lungs: Scattered rhonchi
Extremities: Mild edema bilaterally
Neuro: Grossly nonfocal, awake, alert and oriented x3.
[2023-08-01 15:13] VITALS: BP 139/68
[2023-08-01 16:39] LABS: Glucose - Point of Care 197 mg/dl (70-99)
[2023-08-01 19:24] VITALS: BP 154/76
[2023-08-01] MEDS: NEURONTIN 300 MG PO (20:36)
[2023-08-01] MEDS: PRAVACHOL 10 MG PO (20:37)
[2023-08-01 21:45] LABS: Glucose - Point of Care 141 mg/dl (70-99)
[2023-08-01 23:41] VITALS: BP 139/68
[2023-08-02] MEDS: ZOFRAN 4 MG IV (00:03)
[2023-08-02] MEDS: TYLENOL 1000 MG PO (00:28)
--- NOTE | 2023-08-02 00:32 | PTCARENOTE ---
Pt temperature elevated, result = 101.2. CARDIAC SONOGRAPHER made aware, new orders provided. Covid swab obtained, blood cx ordered, and tylenol order adjusted for fever. Tylenol and ice packs provided. Will reassess.
[2023-08-02 00:52] LABS: COVID-19 Antigen Negative (Negative)
[2023-08-02 03:30] VITALS: BP 161/73
--- NOTE | 2023-08-02 05:41 | DOWNTIME ---
There was a [employer] Client Police Superintendent Downtime on 08/02/2023 from 0111 to 08/02/2023 at 0405. Downtime documentation of patient's care, including medication administrations, has been reconciled in the electronic record per guidelines. Refer to the
patient's paper chart under the miscellaneous tab to see printed paper medication records and downtime forms.
[2023-08-02 06:00] VITALS: BMI 28.6
[2023-08-02 06:35] LABS: Mean Corp Hgb Conc. 33.3 g/dL (33.0-37.0); Mean Corpuscular Hgb 31.1 pg (27.0-31.0); Mean Corpuscular Volume 93.4 fL (80.0-94.0); Mean Platelet Volume 9.1 fL (7.4-10.4); Platelet Count 129 10^3/uL (130-400); Red Blood Cell Count 2.57 10^6/uL (4.70-6.10); White Blood Cell Count 10.6 10^3/uL (4.8-10.8)
[2023-08-02 06:54] LABS: Blood Urea Nitrogen 38 mg/dl (9-20); Calcium 8.2 mg/dl (8.4-10.2); Carbon Dioxide 21 mmol/L (22-30); Chloride 99 mmol/L (98-107); Estimated Creatinine Clearance 29 ml/min; Glucose 164 mg/dl (70-99); Potassium 4.2 mmol/L (3.5-5.1); Sodium 126 mmol/L (135-145); eGFR 27.04
[2023-08-02 07:42] VITALS: BP 140/77
[2023-08-02 07:57] LABS: Glucose - Point of Care 173 mg/dl (70-99)
[2023-08-02] MEDS: LOW STRENGTH ASPIRIN 81 MG PO (09:17)
[2023-08-02] MEDS: MYFORTIC DELAYED REL. 360 MG PO ×2 (09:17→23:03)
[2023-08-02] MEDS: JANUVIA 50 MG PO (09:17)
[2023-08-02] MEDS: SODIUM BICARBONATE 650 MG PO (09:17)
[2023-08-02] MEDS: DELTASONE 5 MG PO (09:18)
[2023-08-02] MEDS: LEXAPRO 10 MG PO (09:18)
[2023-08-02] MEDS: TRANDATE 200 MG PO ×2 (09:18→22:56)
[2023-08-02] MEDS: NORVASC 10 MG PO (09:18)
[2023-08-02] MEDS: LASIX 40 MG IV (09:19)
[2023-08-02] MEDS: HEPARIN 5000 UNITS SC ×2 (09:19→22:52)
--- NOTE | 2023-08-02 09:35 | W.PN.HOSP.TC ---
Today's Communication/Plan
-
Continue with Lasix
Check flu antigen. Repeat chest x-ray.
Check heme test stools and iron studies.
Assessment / Plan
Assessment / Plan
Acute new onset of CHF -patient presents with progressive lower extremity edema, exertional shortness of breath and orthopnea.� He has a chest x-ray evidence of CHF.� Negative troponins.� EKG without acute changes.� Last known EF in 2019 was 55%.�
Patient with chronic kidney disease/renal transplant.� He also has hypertension.
Repeat echo shows EF of 54% and mild MR.
Patient feeling improved. Still requiring oxygen at 4 L. Lost 6lbs but wt stalled since yesterday . CW Lasix per renal
Continue with his antihypertensives-blood pressure mostly under goal today.
Appreciate cardiology input
Chronic kidney disease stage IIIb.� Today's creatinine is 2.6 which is higher than his baseline. unclear if it is heart failure related.� Will continue to follow on diuresis.� Patient is known to have renal transplant.� Appreciate nephrology input
Hyponatremia-suspect related to CHF-continue to follow on FR
Leukocytosis without any fever ion admission but last night had fever . Nontoxic looking. White count normalized without treatment other than heart failure. COVID-19 negative. Blood cultures drawn. Check flu antigen. Unclear if reactive.
Continue to follow for any recurrence.
Repeat chest x-ray to see if any improvement in the edema with loss of 6 pounds. If recurrent fevers and no improvement of chest x-ray to consider infectious evaluation.
Anemia normocytic-history of chronic anemia. Check into stools, iron stores.
Hypertension-continue with his home medication and optimize treatments as needed.
Diabetes mellitus type 2 on insulin-continue with his home insulin regimen and follow Accu-Cheks.
Full code
Anticipated Discharge: > 48 hours
Subjective/Interval History
-
Date of Service: August 02, 2023
Breathing okay at rest. He is still requiring oxygen. No cough but complains of postnasal drip. No sore throat.
He had a spike of fever yesterday.
No nausea vomiting.
Objective Data
-
Labs:
Laboratory Results
08/02/23
06:05
WBC 10.6
Hgb 8.0 L
Hct 24.0 L
Plt Count 129 L
Sodium 126 L
Potassium 4.2
Chloride 99
Carbon Dioxide 21 L
BUN 38 H
Creatinine 2.6 H
Glucose 164 H
Calcium 8.2 L
Vital Signs:
Vital Signs
Temp Pulse Resp BP Pulse Ox
97.9 F 77 16 140/77 92
08/02/23 07:42 08/02/23 09:18 08/02/23 07:42 08/02/23 09:18 08/02/23 07:42
I&O
08/01/23 08/02/23 08/03/23
06:59 06:59 06:59
Intake Total 1350 / 1350 400 / 400
Output Total 2475 / 2475 380 / 380
Balance -1125 / -1125
Review of Systems
-
Constitutional: Reports Fever; Denies Chills
EENT: Denies Sore Throat
Respiratory: Reports Trouble Breathing (Not at rest); Denies Cough
Cardiac: Denies Chest Pain
Abdomen/GI: Denies Abdominal Pain
Neuro: Denies Dizzy
Physical Exam
-
General: No Apparent Distress
HEENT: Moist Mucous Membranes
Respiratory: Clear to Auscultation; Negative Wheezes
Cardiac: Regular Rhythm and S1/S2
GI: Soft
Neuro: AO x 3
Data Reviewed
-
Labs: Labs Reviewed by me
[2023-08-02 09:47] LABS: Reticulocyte Count 3.2 % (0.4-2.8)
[2023-08-02 10:09] LABS: Iron 24 ug/dl (49-181)
[2023-08-02 10:20] LABS: Percent Saturation 9 % (20-50); Total Iron Binding Capacity 244 ug/dl (261-462)
[2023-08-02] MEDS: NOVOLOG FLEXPEN 2 UNITS SC ×3 (10:56→18:19)
[2023-08-02] MEDS: NOVOLOG FLEXPEN-LOW RESISTANCE 1 UNITS SC (10:56)
[2023-08-02] MEDS: MUCINEX 600 MG PO ×2 (10:58→22:57)
[2023-08-02 11:26] VITALS: BP 148/79
[2023-08-02 11:48] LABS: Glucose - Point of Care 258 mg/dl (70-99)
--- NOTE | 2023-08-02 12:48 | W.PN.NEPH.PH ---
Today's Communication / Plan
-
- increase lasix to 60mg BID
- fever noted, no localizing signs of infection ctm
Assessment/Plan
-
Assessment:
Acute on chr CHF pEF
Renal transplant (02/18/20) [place]-living unrelated
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
Hypertension with history of orthostasis
[place] with CKD 3b -last cr 2.1 at [place] visit this month-Dr Leon
CHr met acidosis
Carotid artery disease s/p B/L carotid endarterectomy 2017
Type 2 diabetes
Diabetic nephropathy
Hypercholesterolemia
Depression
Anemia
Hyponatremia
Severe thickening of distal esophagus by imaging
Plan:
A/w CHF flare
EVERETT -suspect cardiorenal, check UA, known h/o FSGS on biopsy with proteinuria. Cr worse to 2.6 (bl 2)
cotn pred and MMF, off envarsus for few months now, bland UA
pt still on monthly infusion at [place] (?belatacept?)
increase lasix to 60mg BID
fluid restriction 48 ounces/day, was drinking more at home, echo normal EF
hyponatremia likely dilutional with CHF, if worsens may need samsca
BP expect to improve with diuresis, losartan held since recent nephro visit
cont po bicarb for chr met acidosis
follow labs�
-
-
Date of Service: August 02, 2023
CC / HPI / ROS
-
Chief Complaint:
EVERETT with CKD , KTP
History of Present Illness:
cr worse at 2.6, UOP decreased but not well recorded
wt is stable
hb 8.0, WBC improving
sodium low at 126
met acidosis better at 21
Review of Systems:
no cp, sob better but remains on 4lit O2
no dysuria
Labs
-
Labs:
WBC 10.6 10^3/uL (4.8-10.8) 08/02/23 06:05
RBC 2.57 10^6/uL (4.70-6.10) L 08/02/23 06:05
Hgb 8.0 g/dL (13.0-18.0) L 08/02/23 06:05
Hct 24.0 % (39.0-52.0) L 08/02/23 06:05
Plt Count 129 10^3/uL (130-400) L 08/02/23 06:05
Sodium 126 mmol/L (135-145) L 08/02/23 06:05
Potassium 4.2 mmol/L (3.5-5.1) 08/02/23 06:05
Chloride 99 mmol/L (98-107) 08/02/23 06:05
Carbon Dioxide 21 mmol/L (22-30) L 08/02/23 06:05
BUN 38 mg/dl (9-20) H 08/02/23 06:05
Creatinine 2.6 mg/dL (0.7-1.3) H 08/02/23 06:05
eGFR 27.04 08/02/23 06:05
Glucose 164 mg/dl (70-99) H 08/02/23 06:05
Calcium 8.2 mg/dl (8.4-10.2) L 08/02/23 06:05
Fus-R-Urostkuhyjn Pept 4730 pg/ml 07/31/23 09:25
Albumin 3.9 g/dl (3.5-5.0) 07/31/23 09:25
Physical Exam
-
Vital Signs:
Vital Signs
Temp Pulse Resp BP Pulse Ox
98.1 F 68 16 148/79 91
08/02/23 11:26 08/02/23 11:26 08/02/23 11:26 08/02/23 11:26 08/02/23 11:26
Cardiovascular:: Regular rate and rhythm
Respiratory:: Bilateral: Coarse
Lung Excursion:: Normal
Abdomen:: Nontender and Soft
Bowel Sounds:: Normal
Extremity Edema:: None: Bilateral:
Oreilly Catheter: No
[2023-08-02] MEDS: LANTUS 0.0299999999999999989 UNITS SC (13:27)
[2023-08-02 14:14] LABS: Glucose - Point of Care 228 mg/dl (70-99)
[2023-08-02] MEDS: NOVOLOG FLEXPEN-LOW RESISTANCE 4 UNITS SC (14:16)
--- NOTE | 2023-08-02 15:03 | W.HF.CON ---
Heart Failure
- LV Function
Left ventricular function study result: LV Ejection fraction >40%
Ejection Fraction Percentage: 54
- ARNI
Patient already on ARNI: No
Heart Failure ARNI Not Indicated: LV Ejection Fraction >/= 40%
- ACEI/ARB
Patient already on ACEI/ARB: No
Heart Failure ACEI/ARB Not Indicated: LV Ejection Fraction > 40%
- Beta Nataly
Patient already on Evidence Based Beta Nataly: No
Heart Failure Evidence Based Beta Nataly Not Indicated: LV Ejection Fraction > 40%
- Mineralocorticord Receptor Antagonist
Patient already on MRA: No
Heart Failure MRA Not Indicated: LV Ejection Fraction > 40%
- SGLT-2 Inhibitor
Patient already on SGLT-2 Inhibitor: No
Heart Failure SGLT-2 Inhibitor Not Indicated: LV Ejection Fraction >40%
- NYHA CHF Classification
NYHA CHF Classification Level: Class III - Symptoms w/ min exertion, interferes w/ nml daily activity
- ACC/AHA Stage
ACC/AHA Stage: Stage C: Symptomatic Heart Failure
[2023-08-02 15:51] VITALS: BP 142/69
[2023-08-02 16:32] LABS: Glucose - Point of Care 213 mg/dl (70-99)
[2023-08-02] MEDS: NOVOLOG FLEXPEN-LOW RESISTANCE 2 UNITS SC (18:20)
[2023-08-02 19:55] VITALS: BP 149/74
[2023-08-02 21:40] LABS: Glucose - Point of Care 151 mg/dl (70-99)
[2023-08-02] MEDS: PRAVACHOL 10 MG PO (22:56)
[2023-08-02] MEDS: NEURONTIN 300 MG PO (22:59)
[2023-08-02 23:03] VITALS: BP 158/81
[2023-08-03] VITALS (7 sets, daily range): BP systolic 141–159; BP diastolic 71–81; PULSE 67; O2SAT 99; BMI 28.1
[2023-08-03 06:53] LABS: Hematocrit 24.2 % (39.0-52.0); Hemoglobin 8.3 g/dL (13.0-18.0); Mean Corp Hgb Conc. 34.3 g/dL (33.0-37.0); Mean Corpuscular Hgb 30.9 pg (27.0-31.0); Mean Platelet Volume 9.2 fL (7.4-10.4); Platelet Count 144 10^3/uL (130-400); Red Blood Cell Count 2.69 10^6/uL (4.70-6.10); Red Cell Dist. Width 12.9 % (11.5-14.5); White Blood Cell Count 8.3 10^3/uL (4.8-10.8)
[2023-08-03 07:14] LABS: Blood Urea Nitrogen 44 mg/dl (9-20); Calcium 8.2 mg/dl (8.4-10.2); Carbon Dioxide 24 mmol/L (22-30); Chloride 94 mmol/L (98-107); Estimated Creatinine Clearance 31 ml/min; Glucose 138 mg/dl (70-99); Sodium 126 mmol/L (135-145); eGFR 28.34
[2023-08-03 08:12] LABS: Glucose - Point of Care 147 mg/dl (70-99)
[2023-08-03] MEDS: NOVOLOG FLEXPEN-LOW RESISTANCE SC (09:04)
[2023-08-03] MEDS: TRANDATE 200 MG PO ×2 (09:05→21:48)
[2023-08-03] MEDS: MYFORTIC DELAYED REL. 360 MG PO ×2 (09:05→21:48)
[2023-08-03] MEDS: DELTASONE 5 MG PO (09:05)
[2023-08-03] MEDS: JANUVIA 50 MG PO (09:05)
[2023-08-03] MEDS: NORVASC 10 MG PO (09:05)
[2023-08-03] MEDS: LOW STRENGTH ASPIRIN 81 MG PO (09:05)
[2023-08-03] MEDS: HEPARIN 5000 UNITS SC ×2 (09:06→21:45)
[2023-08-03] MEDS: MUCINEX 600 MG PO ×2 (09:06→21:47)
[2023-08-03] MEDS: LEXAPRO 10 MG PO (09:06)
[2023-08-03] MEDS: SODIUM BICARBONATE 650 MG PO (09:06)
[2023-08-03] MEDS: LASIX 40 MG IV (09:06)
[2023-08-03] MEDS: NOVOLOG FLEXPEN 2 UNITS SC ×3 (09:07→18:04)
--- NOTE | 2023-08-03 11:30 | W.PN.HOSP.TC ---
Today's Communication/Plan
-
see above
Assessment / Plan
Assessment / Plan
Acute new onset of CHF -patient presents with progressive lower extremity edema, exertional shortness of breath and orthopnea.� He has a chest x-ray evidence of CHF.� Negative troponins.� EKG without acute changes.� Last known EF in 2019 was 55%.�
Patient with chronic kidney disease/renal transplant.� He also has hypertension.
Repeat echo shows EF of 54% and mild MR.
Patient feeling improved. requiring oxygen at 3 L. Lost 3lbs since yesterday . CW Lasix per renal
Continue with his antihypertensives
Appreciate cardiology input -signed off
Chronic kidney disease stage IIIb.� Today's creatinine is 2.5 which is higher than his baseline. unclear if it is heart failure related.� Will continue to follow on diuresis.� Patient is known to have renal transplant.� Appreciate nephrology input
Hyponatremia-suspect related to CHF-continue to follow on FR
Leukocytosis without any fever on admission but had fever one spike 2/20 . Nontoxic looking. White count normalized without treatment other than heart failure. COVID-19 negative. Blood cultures neg . flu antigen neg Unclear if reactive.
Continue to follow for any recurrence.
Repeat chest x-ray shows Redemonstration of small bilateral pleural effusions with patchy bibasilar airspace disease. There is a new right perihilar alveolar airspace opacity. While this opacity may represent alveolar pulmonary edema, pneumonia is
within the differential. Clinically also suspect rt perihilar is fluid related . Not acting like pneumonia , no cough ,fever and normal WBC. Pt still with wt too far away from his baseline - normally in 160's
Anemia normocytic-history of chronic anemia. stable.Iron studies suggest iron def - check heme test ,start on iv iron
Hypertension-continue with his home medication and optimize treatments as needed.
Diabetes mellitus type 2 on insulin-continue with his home insulin regimen and follow Accu-Cheks.
Full code
Anticipated Discharge: > 48 hours
Subjective/Interval History
-
Date of Service: August 03, 2023
Oxygen down to 3l
Slept better last night
Breathing is ok at rest and feels improved
No cough
No further fever
Objective Data
-
Labs:
Laboratory Results
08/03/23
06:27
WBC 8.3
Hgb 8.3 L
Hct 24.2 L
Plt Count 144
Sodium 126 L
Potassium 4.0
Chloride 94 L
Carbon Dioxide 24
BUN 44 H
Creatinine 2.5 H
Glucose 138 H
Calcium 8.2 L
Vital Signs:
Vital Signs
Temp Pulse Resp BP Pulse Ox
98.8 F 74 18 152/71 93
08/03/23 07:33 08/03/23 09:05 08/03/23 07:33 08/03/23 09:05 08/03/23 09:15
I&O
08/02/23 08/03/23 08/04/23
06:59 06:59 06:59
Intake Total 400 / 400 1440 / 1440
Output Total 380 / 380 2510 / 2510
Balance 20 / 20 -1070 / -1070
Review of Systems
-
Constitutional: Denies Fever
EENT: Denies Sore Throat
Respiratory: Denies Cough
Abdomen/GI: Denies Abdominal Pain, Nausea or Vomiting
Neuro: Denies Dizzy
Physical Exam
-
General: No Apparent Distress
HEENT: Moist Mucous Membranes
Respiratory: Crackles (rt base; decreased bs left base); Negative Wheezes
Cardiac: Regular Rhythm and S1/S2
Neuro: AO x 3
Psych: Calm
Data Reviewed
-
Medical Tests (Nuc Med, Echo etc): Report Reviewed by me (repeat CXR)
Labs: Labs Reviewed by me
[2023-08-03 12:15] LABS: Glucose - Point of Care 194 mg/dl (70-99)
[2023-08-03 12:55] LABS: Procalcitonin 0.83 ng/ml (0.0-0.25)
--- NOTE | 2023-08-03 12:59 | CM ---
Reviewed chart, patient remains at baseline level of functioning. Plan remains for home with VN.
Plan: Case management will continue to follow and assist with discharge planning. Home when stable with VN services.
--- NOTE | 2023-08-03 12:59 | W.PN.NEPH.PH ---
Today's Communication / Plan
-
-changed lasix to 60mg IV
-samsca
Assessment/Plan
-
Assessment:
Acute on chr CHF pEF
Renal transplant (02/18/20) [place]-living unrelated
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
Hypertension with history of orthostasis
[place] with CKD 3b -last cr 2.1 at [place] visit this month-Dr Leon
CHr met acidosis
Carotid artery disease s/p B/L carotid endarterectomy 2017
Type 2 diabetes
Diabetic nephropathy
Hypercholesterolemia
Depression
Anemia
Hyponatremia
Severe thickening of distal esophagus by imaging
Plan:
A/w CHF flare
EVERETT -suspect cardiorenal, check UA, known h/o FSGS on biopsy with proteinuria. Cr worse to 2.6 (bl 2)
cotn pred and MMF, off envarsus for few months now, bland UA
pt still on monthly infusion at [place] (?belatacept?)
patient was on lasix 40mg IV daily, changed to 60mg IV daily. will give an addition 20mg now.
fluid restriction 48 ounces/day, was drinking more at home, echo normal EF
hyponatremia likely dilutional with CHF, ordered one dose samsca 7.5 mg today
BP expect to improve with diuresis, losartan held since recent nephro visit
cont po bicarb for chr met acidosis
follow labs�
-
-
Date of Service: August 03, 2023
CC / HPI / ROS
-
Chief Complaint:
EVERETT with CKD , KTP
History of Present Illness:
cr stable at 2.5, UOP excellent at 2.5L
wt is stable
hb 8.3, WBC improving
sodium low at 126, given samsca
met acidosis better at 24
Review of Systems:
no cp, sob better but remains on 4lit O2
no dysuria
Labs
-
Labs:
WBC 8.3 10^3/uL (4.8-10.8) 08/03/23 06:27
RBC 2.69 10^6/uL (4.70-6.10) L 08/03/23 06:27
Hgb 8.3 g/dL (13.0-18.0) L 08/03/23 06:27
Hct 24.2 % (39.0-52.0) L 08/03/23 06:27
Plt Count 144 10^3/uL (130-400) 08/03/23 06:27
Sodium 126 mmol/L (135-145) L 08/03/23 06:27
Potassium 4.0 mmol/L (3.5-5.1) 08/03/23 06:27
Chloride 94 mmol/L (98-107) L 08/03/23 06:27
Carbon Dioxide 24 mmol/L (22-30) 08/03/23 06:27
BUN 44 mg/dl (9-20) H 08/03/23 06:27
Creatinine 2.5 mg/dL (0.7-1.3) H 08/03/23 06:27
eGFR 28.34 08/03/23 06:27
Glucose 138 mg/dl (70-99) H 08/03/23 06:27
Calcium 8.2 mg/dl (8.4-10.2) L 08/03/23 06:27
Cpe-V-Vhjhvbzzmtr Pept 4730 pg/ml 07/31/23 09:25
Albumin 3.9 g/dl (3.5-5.0) 07/31/23 09:25
Physical Exam
-
Vital Signs:
Vital Signs
Temp Pulse Resp BP Pulse Ox
99.1 F 70 16 141/72 92
08/03/23 11:00 08/03/23 11:00 08/03/23 11:00 08/03/23 11:00 08/03/23 11:00
Cardiovascular:: Regular rate and rhythm
Respiratory:: Bilateral: Coarse
Lung Excursion:: Normal
Abdomen:: Nontender and Soft
Bowel Sounds:: Normal
Extremity Edema:: +1: Bilateral:
Oreilly Catheter: No
[2023-08-03] MEDS: NOVOLOG FLEXPEN-LOW RESISTANCE 1 UNITS SC (13:05)
[2023-08-03] MEDS: LANTUS 0.0299999999999999989 UNITS SC (13:09)
[2023-08-03] MEDS: LASIX 20 MG IV (14:14)
[2023-08-03] MEDS: SAMSCA 7.5 MG PO (14:14)
[2023-08-03] MEDS: FERRLECIT 110 MG IV (14:55)
[2023-08-03 16:19] LABS: Glucose - Point of Care 229 mg/dl (70-99)
[2023-08-03] MEDS: NOVOLOG FLEXPEN-LOW RESISTANCE 2 UNITS SC (18:04)
[2023-08-03 21:25] LABS: Glucose - Point of Care 226 mg/dl (70-99)
[2023-08-03] MEDS: NEURONTIN 300 MG PO (21:47)
[2023-08-03] MEDS: PRAVACHOL 10 MG PO (21:47)
[2023-08-04] VITALS (7 sets, daily range): BP systolic 127–166; BP diastolic 68–84; PULSE 65–66; O2SAT 95–98; BMI 26.8
[2023-08-04 07:21] LABS: Blood Urea Nitrogen 48 mg/dl (9-20); Calcium 8.7 mg/dl (8.4-10.2); Carbon Dioxide 26 mmol/L (22-30); Chloride 99 mmol/L (98-107); Estimated Creatinine Clearance 27 ml/min; Glucose 160 mg/dl (70-99); Sodium 135 mmol/L (135-145); eGFR 24.74
[2023-08-04 07:48] LABS: Glucose - Point of Care 181 mg/dl (70-99)
[2023-08-04] MEDS: HEPARIN 5000 UNITS SC ×2 (08:52→20:44)
[2023-08-04] MEDS: LASIX 60 MG IV (08:54)
[2023-08-04] MEDS: TRANDATE 200 MG PO ×2 (08:55→20:46)
[2023-08-04] MEDS: SODIUM BICARBONATE 650 MG PO (08:55)
[2023-08-04] MEDS: MUCINEX 600 MG PO ×2 (08:55→20:42)
[2023-08-04] MEDS: JANUVIA 50 MG PO (08:56)
[2023-08-04] MEDS: DELTASONE 5 MG PO (08:56)
[2023-08-04] MEDS: NORVASC 10 MG PO (08:56)
[2023-08-04] MEDS: MYFORTIC DELAYED REL. 360 MG PO ×2 (08:56→20:42)
[2023-08-04] MEDS: NOVOLOG FLEXPEN 2 UNITS SC ×3 (08:56→17:53)
[2023-08-04] MEDS: LOW STRENGTH ASPIRIN 81 MG PO (08:56)
[2023-08-04] MEDS: LEXAPRO 10 MG PO (08:56)
[2023-08-04] MEDS: NOVOLOG FLEXPEN-LOW RESISTANCE 1 UNITS SC (08:57)
[2023-08-04 11:51] LABS: Glucose - Point of Care 237 mg/dl (70-99)
[2023-08-04] MEDS: NOVOLOG FLEXPEN-LOW RESISTANCE 2 UNITS SC ×2 (13:33→17:54)
[2023-08-04] MEDS: LANTUS 0.0299999999999999989 UNITS SC (13:33)
[2023-08-04] MEDS: FERRLECIT 110 MG IV (13:33)
--- NOTE | 2023-08-04 14:08 | W.PN.HOSP.TC ---
Today's Communication/Plan
-
Hold lasix
Follow Cr
Assessment / Plan
Assessment / Plan
Acute new onset of CHF -patient presents with progressive lower extremity edema, exertional shortness of breath and orthopnea.� He has a chest x-ray evidence of CHF.� Negative troponins.� EKG without acute changes.� Last known EF in 2019 was 55%.�
Patient with chronic kidney disease/renal transplant.� He also has hypertension.
Repeat echo shows EF of 54% and mild MR.
Patient feeling improved. requiring oxygen at 1 L. Lost 3lbs since yesterday .
Wt loss 9lbs in 24hr with increased lassic - hold lasix due to increased Cr
Continue with his antihypertensives
Appreciate cardiology input -signed off
Chronic kidney disease stage IIIb.� Today's creatinine is 2.8 which is higher than his baseline. suspect increase may be sec to lasix -hold.� Patient is known to have renal transplant.� Appreciate nephrology input
Hyponatremia-suspect related to CHF-continue to follow on FR. Normalized
Leukocytosis without any fever on admission but had fever one spike 2/20 . Nontoxic looking. White count normalized without treatment other than heart failure. COVID-19 negative. Blood cultures neg . flu antigen neg Unclear if reactive.
Continue to follow for any recurrence.
Repeat chest x-ray shows Redemonstration of small bilateral pleural effusions with patchy bibasilar airspace disease. There is a new right perihilar alveolar airspace opacity. While this opacity may represent alveolar pulmonary edema, pneumonia is
within the differential. Clinically also suspect rt perihilar is fluid related . Not acting like pneumonia , no cough ,fever and normal WBC.
Anemia normocytic-history of chronic anemia. stable.Iron studies suggest iron def - check heme test ,started on iv iron
Hypertension-continue with his home medication and optimize treatments as needed.
Diabetes mellitus type 2 on insulin-continue with his home insulin regimen and follow Accu-Cheks.
Full code
Anticipated Discharge: > 48 hours
Subjective/Interval History
-
Date of Service: August 04, 2023
Patient feels improved with regards to breathing. Now only on 1 L of oxygen.
He had good Diuresis but creatinine went up to 2.8.
No nausea vomiting.
No chest pain.
No cough or fever.
Objective Data
-
Labs:
Laboratory Results
08/04/23
06:24
Sodium 135 D
Potassium 4.0
Chloride 99
Carbon Dioxide 26
BUN 48 H
Creatinine 2.8 H
Glucose 160 H
Calcium 8.7
Vital Signs:
Vital Signs
Temp Pulse Resp BP Pulse Ox
97.8 F 65 18 127/68 99
08/04/23 11:00 08/04/23 11:00 08/04/23 11:00 08/04/23 11:00 08/04/23 11:00
I&O
08/03/23 08/04/23 08/05/23
06:59 06:59 06:59
Intake Total 1440 / 1440 120 / 120
Output Total 2510 / 2510 4225 / 4225
Balance -1070 / -1070 -4105 / -4105
Review of Systems
-
Constitutional: Denies Fever
EENT: Denies Sore Throat
Neuro: Denies Dizzy
Physical Exam
-
General: No Apparent Distress
HEENT: Moist Mucous Membranes
Respiratory: Clear to Auscultation; Negative Wheezes or Crackles
Cardiac: Regular Rhythm and S1/S2; Negative Tachycardic
GI: Soft
Neuro: AO x 3
Data Reviewed
-
Labs: Labs Reviewed by me
--- NOTE | 2023-08-04 15:10 | W.PN.NEPH.PH ---
Today's Communication / Plan
-
hold lasix
Assessment/Plan
-
Assessment:
Acute on chr CHF pEF
Renal transplant (02/18/20) [facility]-living unrelated
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
Hypertension with history of orthostasis
Everett with CKD 3b -last cr 2.1 at [facility] visit this month-Dr Leon
CHr met acidosis
Carotid artery disease s/p B/L carotid endarterectomy 2017
Type 2 diabetes
Diabetic nephropathy
Hypercholesterolemia
Depression
Anemia
Hyponatremia
Severe thickening of distal esophagus by imaging
Plan:
A/w CHF flare
EVERETT -suspect cardiorenal, bland UA, known h/o FSGS on biopsy with proteinuria. Cr worse to 2.8 (bl 2)
cotn pred and MMF, off envarsus for few months now
pt still on monthly infusion at [facility] (?belatacept?)
sig wt reduction overnight hence hold lasix today, think he reached DW
pt fearful of increasing cr despite explaining cardiorenal pathology
fluid restriction 48 ounces/day, was drinking more at home, echo normal EF
hyponatremia likely dilutional with CHF, improved s/p samsca
BP better, losartan held since recent nephro visit
cont po bicarb for chr met acidosis
follow labs�
d/w primary
-
-
Date of Service: August 04, 2023
CC / HPI / ROS
-
Chief Complaint:
EVERETT with CKD , KTP
History of Present Illness:
cr up at 2.8, UOP excellent at 4.2lit, wt down 10lbs overnight
wt decreased
hb 8.3, WBC improving , no CBC today
sodium low at 126, given samsca now at 135
met acidosis better at 26
Review of Systems:
no cp, sob better but remains on 1lit O2
no dysuria
Labs
-
Labs:
WBC 8.3 10^3/uL (4.8-10.8) 08/03/23 06:27
RBC 2.69 10^6/uL (4.70-6.10) L 08/03/23 06:27
Hgb 8.3 g/dL (13.0-18.0) L 08/03/23 06:27
Hct 24.2 % (39.0-52.0) L 08/03/23 06:27
Plt Count 144 10^3/uL (130-400) 08/03/23 06:27
Sodium 135 mmol/L (135-145) D 08/04/23 06:24
Potassium 4.0 mmol/L (3.5-5.1) 08/04/23 06:24
Chloride 99 mmol/L (98-107) 08/04/23 06:24
Carbon Dioxide 26 mmol/L (22-30) 08/04/23 06:24
BUN 48 mg/dl (9-20) H 08/04/23 06:24
Creatinine 2.8 mg/dL (0.7-1.3) H 08/04/23 06:24
eGFR 24.74 08/04/23 06:24
Glucose 160 mg/dl (70-99) H 08/04/23 06:24
Calcium 8.7 mg/dl (8.4-10.2) 08/04/23 06:24
Kbs-Q-Wqnlbyxzhmn Pept 4730 pg/ml 07/31/23 09:25
Albumin 3.9 g/dl (3.5-5.0) 07/31/23 09:25
Physical Exam
-
Vital Signs:
Vital Signs
Temp Pulse Resp BP Pulse Ox
97.8 F 65 18 127/68 97
08/04/23 11:00 08/04/23 11:00 08/04/23 11:00 08/04/23 11:00 08/04/23 14:26
Cardiovascular:: Regular rate and rhythm
Respiratory:: Bilateral: CTA
Lung Excursion:: Normal
Abdomen:: Nontender and Soft
Extremity Edema:: None: Bilateral:
Oreilly Catheter: No
[2023-08-04 16:46] LABS: Glucose - Point of Care 221 mg/dl (70-99)
[2023-08-04] MEDS: NEURONTIN 300 MG PO (20:40)
[2023-08-04] MEDS: PRAVACHOL 10 MG PO (20:41)
[2023-08-04 21:22] LABS: Glucose - Point of Care 292 mg/dl (70-99)
[2023-08-05 06:00] VITALS: BMI 25.8
[2023-08-05 07:15] LABS: Hematocrit 28.3 % (39.0-52.0); Hemoglobin 9.8 g/dL (13.0-18.0); Mean Corp Hgb Conc. 34.6 g/dL (33.0-37.0); Mean Corpuscular Hgb 31.1 pg (27.0-31.0); Mean Corpuscular Volume 89.8 fL (80.0-94.0); Mean Platelet Volume 9.1 fL (7.4-10.4); Platelet Count 204 10^3/uL (130-400); Red Blood Cell Count 3.15 10^6/uL (4.70-6.10); Red Cell Dist. Width 12.7 % (11.5-14.5); White Blood Cell Count 6.9 10^3/uL (4.8-10.8)
[2023-08-05 07:30] VITALS: BP 151/72
[2023-08-05 07:53] LABS: Glucose - Point of Care 178 mg/dl (70-99)
[2023-08-05 08:03] LABS: Blood Urea Nitrogen 44 mg/dl (9-20); Calcium 9.1 mg/dl (8.4-10.2); Carbon Dioxide 22 mmol/L (22-30); Chloride 100 mmol/L (98-107); Estimated Creatinine Clearance 31 ml/min; Glucose 161 mg/dl (70-99); Potassium 3.8 mmol/L (3.5-5.1); Sodium 134 mmol/L (135-145); eGFR 28.34
[2023-08-05] MEDS: NOVOLOG FLEXPEN 2 UNITS SC ×2 (09:19→13:34)
[2023-08-05] MEDS: NOVOLOG FLEXPEN-LOW RESISTANCE 1 UNITS SC (09:19)
[2023-08-05] MEDS: TRANDATE 200 MG PO (09:22)
[2023-08-05] MEDS: MYFORTIC DELAYED REL. 360 MG PO (09:22)
[2023-08-05] MEDS: NORVASC 10 MG PO (09:23)
[2023-08-05] MEDS: SODIUM BICARBONATE 650 MG PO (09:23)
[2023-08-05] MEDS: LOW STRENGTH ASPIRIN 81 MG PO (09:23)
[2023-08-05] MEDS: JANUVIA 50 MG PO (09:23)
[2023-08-05] MEDS: DELTASONE 5 MG PO (09:23)
[2023-08-05] MEDS: LEXAPRO 10 MG PO (09:23)
[2023-08-05] MEDS: MUCINEX 600 MG PO (09:23)
[2023-08-05] MEDS: HEPARIN 5000 UNITS SC (09:23)
--- NOTE | 2023-08-05 10:31 | W.PN.HOSP.TC ---
Addendum entered and electronically signed by Teja Betancourt MD 08/05/23 14:45:
Discussed with nephrology okay for discharge from their standpoint with improved weight and improving creatinine.
Advised Lasix 20 mg and 20 mg on alternate days.
Repeat a BMP next week.
Total time of discharge 32 minutes
Original Note:
Today's Communication/Plan
-
Continue to hold Lasix
Repeat creatinine in a.m.
Assessment / Plan
Assessment / Plan
Acute new onset of CHF -patient presents with progressive lower extremity edema, exertional shortness of breath and orthopnea.� He has a chest x-ray evidence of CHF.� Negative troponins.� EKG without acute changes.� Last known EF in 2019 was 55%.�
Patient with chronic kidney disease/renal transplant.� He also has hypertension.
Repeat echo shows EF of 54% and mild MR.
Patient feeling improved. Lost quite a bit of weight-today 174.
hold lasix due to increased Cr
Continue with his antihypertensives
Appreciate cardiology input -signed off
Chronic kidney disease stage IIIb.� Today's creatinine is 2.5 which is higher than his baseline. suspect increase may be sec to lasix -hold.� Patient is known to have renal transplant.� Nephrology following
Hyponatremia-suspect related to CHF-continue to follow on FR. improved
Leukocytosis without any fever on admission but had fever one spike 2/20 . Nontoxic looking. White count normalized without treatment other than heart failure. COVID-19 negative. Blood cultures neg . flu antigen neg Unclear if reactive.
Continue to follow for any recurrence.
Repeat chest x-ray shows Redemonstration of small bilateral pleural effusions with patchy bibasilar airspace disease. There is a new right perihilar alveolar airspace opacity. While this opacity may represent alveolar pulmonary edema, pneumonia is
within the differential. Clinically also suspect rt perihilar is fluid related . Not acting like pneumonia , no cough ,fever and normal WBC.
Anemia normocytic-history of chronic anemia. stable.Iron studies suggest iron def - check heme test ,started on iv iron-improving
Hypertension-continue with his home medication and optimize treatments as needed.
Diabetes mellitus type 2 on insulin-continue with his home insulin regimen and follow Accu-Cheks.
Full code
Anticipated Discharge: 24 - 48 hours
Subjective/Interval History
-
Date of Service: August 05, 2023
Feeling improved from breathing. Off of oxygen.
No chest pain.
No nausea vomiting.
Objective Data
-
Labs:
Laboratory Results
08/05/23
06:43
WBC 6.9
Hgb 9.8 L
Hct 28.3 L
Plt Count 204 D
Sodium 134 L
Potassium 3.8
Chloride 100
Carbon Dioxide 22
BUN 44 H
Creatinine 2.5 H
Glucose 161 H
Calcium 9.1
Vital Signs:
Vital Signs
Temp Pulse Resp BP Pulse Ox
98.2 F 67 16 151/72 96
08/05/23 07:30 08/05/23 07:30 08/05/23 07:30 08/05/23 07:30 08/05/23 07:30
I&O
08/04/23 08/05/23 08/06/23
06:59 06:59 06:59
Intake Total 120 / 120 1440 / 1440
Output Total 4225 / 4225 2875 / 2875
Balance -4105 / -4105 -1435 / -1435
Review of Systems
-
Constitutional: Denies Fever
EENT: Denies Sore Throat
Respiratory: Denies Cough
Neuro: Denies Dizzy
Physical Exam
-
General: No Apparent Distress
HEENT: Moist Mucous Membranes
Respiratory: Clear to Auscultation
Cardiac: Regular Rhythm and S1/S2
Neuro: AO x 3
Data Reviewed
-
Labs: Labs Reviewed by me
[2023-08-05 12:15] LABS: Glucose - Point of Care 272 mg/dl (70-99)
[2023-08-05] MEDS: NOVOLOG FLEXPEN-LOW RESISTANCE 3 UNITS SC (13:34)
[2023-08-05] MEDS: FERRLECIT 110 MG IV (13:34)
[2023-08-05] MEDS: LANTUS 0.0299999999999999989 UNITS SC (13:34)
--- NOTE | 2023-08-05 14:42 | W.DS.TRANS ---
DC Summary - Dry Cleaner Hand
-
Discharge Instructions:
Sleep Apnea Risk Intermediate
Discharge Diagnosis/Procedures Acute CHF compensation; acute on chronic kidney
disease; renal transplant
Diet 2 Gram Sodium,Restrict fluids to 64 oz,Diabetic,
Carb Controlled
Activity As tolerated
Driving Restrictions As prior to admission
Bathing Restrictions None
Blood Work BMP blood work in one week -arrange through your
PCP
Specialty Instructions Weigh Daily
Instructions: *[facility] Heart Failure Instructions
Stand-Alone Forms:
Changes to Home Medications: Yes
Discharge Medications:
DC Medications w/original date entered in [facility]
insulin glargine 100 unit/mL (3 mL) subcutaneous pen (Lantus Solostar U-100 Insulin) 3 units SC DAILY@1200 Diabetes 07/30/20
linagliptin 5 mg tablet (Tradjenta) 5 mg PO DAILY Diabetes 07/30/20
insulin aspart U-100 100 unit/mL (3 mL) subcutaneous pen (Novolog FlexPen U-100 Insulin aspart) 2 units SC MEALS Diabetes 08/03/20
aspirin 81 mg chewable tablet 81 mg PO DAILY Blood clot prevention/tx 09/02/21
gabapentin 300 mg capsule 300 mg PO HS Pain 09/02/21
acetaminophen 500 mg tablet (Tylenol Extra Strength) 1,000 mg PO BIDPRN PRN mild pain 05/02/23
amlodipine 10 mg tablet (Norvasc) 10 mg PO DAILY Blood Pressure 05/02/23
escitalopram oxalate 10 mg tablet (Lexapro) 10 mg PO DAILY Mental Health/Anxiety 05/02/23
mycophenolate sodium 180 mg tablet,delayed release 360 mg PO BID renal transplant 05/02/23
pravastatin 10 mg tablet 10 mg PO HS High Cholesterol 05/02/23
prednisone 5 mg tablet 5 mg PO DAILY Anti-Inflammatory 05/02/23
sodium bicarbonate 650 mg tablet 650 mg PO DAILY Supplement 05/02/23
Medical Marijuana 0.5 gummy PO HSPRN PRN sleep 07/31/23
labetalol 200 mg tablet 200 mg PO BID Blood Pressure 07/31/23
furosemide 20 mg tablet (Lasix) 20 mg PO Q OTHER DAY #15 tabs 08/05/23
furosemide 40 mg tablet (Lasix) 40 mg PO Q OTHER DAY #15 tabs 08/05/23
Home Medication Changes
New medication Lasix 20 mg alternating with 40 mg
Pending Results: No
--- NOTE | 2023-08-05 14:49 | CM ---
CM following re: discharge planning.
Reviewed pt's chart, met with pt.
Discharge order is noted. Pt is aware, expressed his agreement with discharge and pt stated he will not need any after care VN services and his spouse will transport home. IMM reviewed, placed in chart, pt has a copy.
PT and OT evaluations noted - pt has no skilled needs, independent with functional ability.
D/C plan: home with no needs. Spouse to transport
--- NOTE | 2023-08-05 15:21 | W.PN.NEPH.PH ---
Today's Communication / Plan
-
see plan
Assessment/Plan
-
Assessment:
Acute on chr CHF pEF
Renal transplant (02/18/20) [place]-living unrelated
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
Hypertension with history of orthostasis
[place] with CKD 3b -last cr 2.1 at [facility] visit this month-Dr Leon
CHr met acidosis
Carotid artery disease s/p B/L carotid endarterectomy 2017
Type 2 diabetes
Diabetic nephropathy
Hypercholesterolemia
Depression
Anemia
Hyponatremia
Severe thickening of distal esophagus by imaging
Plan:
A/w CHF flare
EVERETT -suspect cardiorenal, bland UA, known h/o FSGS on biopsy with proteinuria. Cr better at 2.5
cotn pred and MMF, off envarsus for few months now
pt still on monthly infusion at [facility] (?belatacept?)
sig wt reduction thsi admit, think he reached DW, lasix 20mg/40mg alternate
fluid restriction 48 ounces/day, was drinking more at home, echo normal EF
hyponatremia likely dilutional with CHF, improved s/p samsca 08/03
BP stable, losartan held since recent nephro visit
cont po bicarb for chr met acidosis
ok for d/c and f/u nephro at [facility]
BMP in 3days
d/w primary
-
-
Date of Service: August 05, 2023
CC / HPI / ROS
-
Chief Complaint:
EVERETT with CKD , KTP
History of Present Illness:
cr better at 2.5,
wt decreased
hb better at 9.8,
sodium better at 134,
met acidosis better at 22
Review of Systems:
no cp, sob, not on O2
no dysuria
Labs
-
Labs:
WBC 6.9 10^3/uL (4.8-10.8) 08/05/23 06:43
RBC 3.15 10^6/uL (4.70-6.10) L 08/05/23 06:43
Hgb 9.8 g/dL (13.0-18.0) L 08/05/23 06:43
Hct 28.3 % (39.0-52.0) L 08/05/23 06:43
Plt Count 204 10^3/uL (130-400) D 08/05/23 06:43
Sodium 134 mmol/L (135-145) L 08/05/23 06:43
Potassium 3.8 mmol/L (3.5-5.1) 08/05/23 06:43
Chloride 100 mmol/L (98-107) 08/05/23 06:43
Carbon Dioxide 22 mmol/L (22-30) 08/05/23 06:43
BUN 44 mg/dl (9-20) H 08/05/23 06:43
Creatinine 2.5 mg/dL (0.7-1.3) H 08/05/23 06:43
eGFR 28.34 08/05/23 06:43
Glucose 161 mg/dl (70-99) H 08/05/23 06:43
Calcium 9.1 mg/dl (8.4-10.2) 08/05/23 06:43
Bxh-G-Yfvckeeotdo Pept 4730 pg/ml 07/31/23 09:25
Albumin 3.9 g/dl (3.5-5.0) 07/31/23 09:25
Physical Exam
-
Vital Signs:
Vital Signs
Temp Pulse Resp BP Pulse Ox
98.2 F 67 16 151/72 96
08/05/23 07:30 08/05/23 07:30 08/05/23 07:30 08/05/23 07:30 08/05/23 07:30
Cardiovascular:: Regular rate and rhythm
Respiratory:: Bilateral: CTA
Lung Excursion:: Normal
Abdomen:: Nontender and Soft
Extremity Edema:: None: Bilateral:
Oreilly Catheter: No
--- NOTE | 2023-08-05 15:57 | W.DCSUMMARY ---
Discharge Summary
Discharge Data
Date of Admission: 07/31/23
Date of Discharge: 08/05/23
-
Pending Results: No
Hospital Course
Primary diagnosis:
Acute new onset of condition heart failure with preserved EF
Acute kidney injury chronic kidney disease stage IIIb
Renal transplant [02/18/2020] at [facility]-living unrelated donor
Normocytic iron deficiency anemia
Secondary diagnosis:
Essential hypertension
Carotid artery disease s/p bilateral carotid endarterectomy
Diabetes mellitus type 2
Hyperlipidemia
Chronic anemia
Hospital course:
Patient was presented with shortness of breath and hypoxia and discovered to be in heart failure. This is his first episode. No new cardiac event. Had an echocardiogram which showed EF of 54% with mild MR, compared to ECHO in 2019 there is now
Was seen by cardiology and nephrology. Nephrology as his creatinine is more than the baseline suggestive of SONALI. Normal baseline around 2.1 recently came in with 2.4 peaked to 2.8 with diuresis.
He responded well to diuresis. His weight came down from 199 to 174 pounds. He is noted to be in 160s last year. With rapid changes in the weight he did bump his creatinine to 2.8 so Lasix was kept on hold for a day. His creatinine started to
come down to 2.5. He was advised oral Lasix 20 and 40 mg alternating. Advised to get BMP next week.
He did not seek attention when the weight was going up so he was advised about weight monitoring and eating out to the physician/reducer of weight were to go up.
Consultants on board:
Nephrology Dr. Cristobal
Cardiology Dr Decker
Discharge Plan
-
Patient Disposition: Home (Routine Discharge)
Discharge Diagnosis/Procedures: Acute CHF compensation; acute on chronic kidney disease; renal transplant
Diet: 2 Gram Sodium, Diabetic, Carb Controlled and Restrict fluids to 64 oz
Activity: As tolerated
Driving Restrictions: As prior to admission
Bathing Restrictions: None
Blood Work: BMP blood work in one week -arrange through your PCP
Specialty Instructions: Weigh Daily- Call MD for wt gain/loss 3 lbs overnight/5 lbs in 1 week
Instructions: *[facility] Heart Failure Instructions
Referrals:
Germaine Vincent MD [Family Provider] - in less than 1 week
Clover Holloway PA-C [Specified Professional Personl] - 08/11/23 10:00 am (You have a cardiology follow up appointment at the [place] office with Dr. Ruiz's physician speech therapy assistant, Clover. Please call with questions. )
Prescriptions:
New
furosemide [Lasix] 20 mg tablet
20 mg PO Q OTHER DAY Qty: 15 0RF
furosemide [Lasix] 40 mg tablet
40 mg PO Q OTHER DAY Qty: 15 0RF
Continued
insulin glargine [Lantus Solostar U-100 Insulin] 300 UNITS/3 ML insulin pen
3 units SC DAILY@1200
Tradjenta 5 MG tablet
5 mg PO DAILY
insulin aspart U-100 [Novolog FlexPen U-100 Insulin] 300 UNITS/3 ML insulin pen
2 units SC MEALS
gabapentin 300 MG capsule
300 mg PO HS
aspirin 81 MG tablet,chewable
81 mg PO DAILY
prednisone 5 mg Tablet
5 mg PO DAILY
acetaminophen [Tylenol Extra Strength] 500 mg Tablet
1,000 mg PO BIDPRN PRN (Reason: mild pain)
pravastatin 10 mg Tablet
10 mg PO HS
sodium bicarbonate 650 mg Tablet
650 mg PO DAILY
amlodipine [Norvasc] 10 mg Tablet
10 mg PO DAILY
escitalopram oxalate [Lexapro] 10 mg Tablet
10 mg PO DAILY
mycophenolate sodium 180 mg tablet,delayed release (DR/EC)
360 mg PO BID
labetalol 200 mg tablet
200 mg PO BID
Medical Marijuana
0.5 gummy PO HSPRN PRN (Reason: sleep)
Discontinued
losartan 25 mg Tablet
25 mg PO DAILY
Hold Instructions: Until kidney function improves and blood pressure greater than 140/90
Discharge Orders:
Discharge Patient (As Directed); Ordered 08/05/23
Ordered By: Teja Betancourt
--- NOTE | 2023-08-14 13:52 | HFEDUCATE ---
Pt had F/U appt on 08/11/23 at 10:00AM with Clover Holloway PA-C.
--- NOTE | 2023-08-14 13:55 | HFEDUCATE ---
Pt's son Koffi, spoke with Prema Galo on behalf of patient on 08/08/23 at 1:02PM to inquire about pts. upcoming vein procedure. Encouraged to ask F/U questions at cardiology appt review HF self management with son.
== END 2023-08-05 16:46 | disposition home or self-care (01) | DRG 291 ==
LOC: 3 WEST ACU 11:53
PROVIDERS: Nurse Practitioner Family; ADMITTING PHYSICIAN Internal Medicine; CONSULT PHYSICIAN Internal Medicine; CONSULT PHYSICIAN Internal Medicine Cardiovascular Disease; EMERGENCY PHYSICIAN Emergency Medicine; FAMILY PHYSICIAN Internal Medicine
DX: I13.0 Hypertensive heart and chronic kidney disease with heart failure and stage 1 through stage 4 chronic kidney disease, or unspecified chronic kidney disease (principal); I50.33 Acute on chronic diastolic (congestive) heart failure; D84.821 Immunodeficiency due to drugs; E87.1 Hypo-osmolality and hyponatremia; N17.9 Acute kidney failure, unspecified; T86.19 Other complication of kidney transplant; E87.22 Chronic metabolic acidosis; D84.9 Immunodeficiency, unspecified; Y83.0 Surgical operation with transplant of whole organ as the cause of abnormal reaction of the patient, or of later complication, without mention of misadventure at the time of the procedure; N18.32 Chronic kidney disease, stage 3b; E11.22 Type 2 diabetes mellitus with diabetic chronic kidney disease; Z79.4 Long term (current) use of insulin; Z79.82 Long term (current) use of aspirin; E78.00 Pure hypercholesterolemia, unspecified; F32.A Depression, unspecified; Z79.621 Long term (current) use of calcineurin inhibitor; I16.0 Hypertensive urgency; D50.9 Iron deficiency anemia, unspecified
CPT/HCPCS: 71046; 80048; 80053; 81003; 81015; 82728; 82962; 83036; 83540; 83550; 83880; 84145; 84484; 85025; 85027; 85045; 87040; 87502; 87811; 93005; 93306; 96374; 97116; 97162; 97166; 99285; J2916

== ENCOUNTER → 2023-08-17 08:38 | Outpatient (REF) | payer MEDICARE, OTHER, SELFPAY | LOC: DHCBC/DCA 08:38 | PROVIDERS: ATTENDING PHYSICIAN Internal Medicine Cardiovascular Disease; FAMILY PHYSICIAN Internal Medicine | DX: R06.09 Other forms of dyspnea (principal); E78.00 Pure hypercholesterolemia, unspecified; Z98.890 Other specified postprocedural states | CPT/HCPCS: 78452; 93017; A9500; J2785 ==

== ENCOUNTER → 2023-09-22 09:44 | Outpatient (REF) | payer MEDICARE, OTHER, SELFPAY ==
[2023-09-22 12:09] LABS: Blood Urea Nitrogen 50 mg/dl (9-20); Calcium 9.1 mg/dl (8.4-10.2); Carbon Dioxide 25 mmol/L (22-30); Chloride 94 mmol/L (98-107); Glucose 198 mg/dl (70-99); Potassium 4.2 mmol/L (3.5-5.1); Sodium 130 mmol/L (135-145); eGFR 22.77
== END ==
LOC: REG 09:44
PROVIDERS: ATTENDING PHYSICIAN Internal Medicine Cardiovascular Disease
DX: R06.09 Other forms of dyspnea (principal)
CPT/HCPCS: 36415; 80048

== ENCOUNTER → 2023-09-29 09:30 | Outpatient (REF) | payer MEDICARE, OTHER, SELFPAY ==
[2023-09-29 12:15] LABS: Blood Urea Nitrogen 47 mg/dl (9-20); Calcium 9.2 mg/dl (8.4-10.2); Carbon Dioxide 29 mmol/L (22-30); Chloride 94 mmol/L (98-107); Glucose 242 mg/dl (70-99); Sodium 132 mmol/L (135-145); eGFR 22.77
== END ==
LOC: HWLAB 09:30
PROVIDERS: ATTENDING PHYSICIAN Internal Medicine Cardiovascular Disease; FAMILY PHYSICIAN Internal Medicine
DX: I10 Essential (primary) hypertension (principal); N18.5 Chronic kidney disease, stage 5; R06.09 Other forms of dyspnea
CPT/HCPCS: 36415; 80048

== ENCOUNTER 2024-01-19 14:21 | Inpatient (IN) | payer MEDICARE, OTHER, SELFPAY ==
[2024-01-19] VITALS (9 sets, daily range): BP systolic 153–170; BP diastolic 80–101; BMI 27.7
[2024-01-19] MEDS: LASIX 80 MG IV (12:08)
[2024-01-19 12:18] LABS: % Basophils 0.3 % (0-2); % Eosinophils 0.3 % (0-6); % Immature Granulocytes 0.6 % (0-0.5); % Lymphocytes 2.4 % (20.5-51.1); % Monocytes 9.4 % (1.7-9.3); Absolute Immature Granulocytes 0.1 10^3/uL (0-0.05); Absolute Lymphocytes 0.2 10^3/uL (1.2-3.4); Absolute Monocytes 0.9 10^3/uL (0.1-0.6); Absolute Neutrophils 8.5 10^3/uL (1.4-6.5); Hematocrit 26.5 % (39.0-52.0); Hemoglobin 9.2 g/dL (13.0-18.0); Mean Corp Hgb Conc. 34.7 g/dL (33.0-37.0); Mean Corpuscular Hgb 30.3 pg (27.0-31.0); Mean Corpuscular Volume 87.2 fL (80.0-94.0); Mean Platelet Volume 9.6 fL (7.4-10.4); Nucleated Red Blood Cells % 0 % (-); Platelet Count 110 10^3/uL (130-400); Red Blood Cell Count 3.04 10^6/uL (4.70-6.10); Red Cell Dist. Width 12.9 % (11.5-14.5); White Blood Cell Count 9.8 10^3/uL (4.8-10.8)
--- NOTE | 2024-01-19 12:22 | ED.GENMED ---
History of Present Illness
General
Chief Complaint: Breathing Problem
Source: patient, records, previous radiology exam and previous hospital records
Exam Limitations: none
Time Seen by Provider: 01/19/24 11:35
Nursing documentation reviewed up to this point in time: agreed with
History of Present Illness
History of Present Illness:
63-year-old male CHF diabetes renal transplant hypertension follow-up with Dr. Ruiz locally outside nephrology
Presents with shortness of breath onset a few days ago similar but less severe when he had it a few months ago, has been compliant with his diuretic, tells me his baseline creatinine is in the mid 3 range
No fevers he has had orthopnea dyspnea on exertion does not use oxygen chronically
Had a chest x-ray as an outpatient earlier today
Past History
Past History
ED Past Medical History: CHF, HTN, NIDDM and Other (renal transplant)
ED Past Surgical History: Urological (Kidney transplant 2019)
Social History
Tobacco: Former smoker
Alcohol: Daily (Wine)
Drug: None
Personal:
Living: with family
Employment: Employed
Review of Systems
Review of Systems
All Other Systems: Not applicable
Constitutional: Denies fever or fatigue
Respiratory: Reports cough and trouble breathing
Cardiac: Reports no symptoms
ABD/GI: Reports no symptoms
: Reports no symptoms
Musculoskeletal: Reports no symptoms
Skin: Reports no symptoms
Neurological: Reports no symptoms
Endocrine: Reports no symptoms
Phy Exam
Physical Exam
Physical Exam:
Physical Exam
General: 63 male mild distress
Neck: Positive JVD
Heart: Regular
Lungs: Bibasilar crackles
Abdomen: Not tender
Neuro: alert and oriented. no focal neurological deficits
Skin: no rash
Psychiatric: well kept. interactive and cooperative
Extremities: Edema is present
Scores
Heart Failure Risk
Heart Failure Risk Score: Yes
History of Stroke or TIA: No
History of intubation for respiratory distress: No
Heart rate on ED arrival >/= 110: Yes
SaO2 <90% on arrival on room air: Yes
HR >/=110 during 3min walk test (or too ill to perform test): Yes
ECG has acute ischemic changes: No
Urea >/=12mmol/L (BUN 33.6mg/dL): No
Serum CO2>/=35mmol/L: No
Troponin I or T elevated to NH Level (0.4mg/dL): No
NT-proBNP >/=5,000ng/L (5,000pg/ml): No
HF Risk Score: 3
Admission Status: HIGH RISK 15.9% Consider SNF treatment or admission to hospital
Course
Orders/Labs/Results
Orders:
Orders
01/19/24 11:57
Electrocardiogram (*1) Stat
Reason for Study: Other
Other Reason for Exam: chest pain
Cardiac Monitoring- Treatment ONCE
EKG- Treatment ONCE
IV Insert/Care/Rem.- Treatment PRN
Furosemide [Lasix] 80 mg IV NOW STA
01/19/24 12:08
Complete Blood Count/With Diff Urgent
Comprehensive Metabolic Panel Urgent
Magnesium Urgent
PTT Urgent
Prothrombin Time Urgent
Troponin I Urgent
01/19/24 12:49
Add On- LAB Urgent
Tests Added?: pBNP
Abnormal Lab Results
01/19/24
12:08
RBC 3.04 L 10^6/uL
(4.70-6.10)
Hgb 9.2 L g/dL
(13.0-18.0)
Hct 26.5 L %
(39.0-52.0)
Plt Count 110 L 10^3/uL
(130-400)
Abs Immat Gran (auto) 0.1 H 10^3/uL
(0-0.05)
Absolute Neuts (auto) 8.5 H 10^3/uL
(1.4-6.5)
Absolute Lymphs (auto) 0.2 L 10^3/uL
(1.2-3.4)
Absolute Monos (auto) 0.9 H 10^3/uL
(0.1-0.6)
Immature Gran % 0.6 H %
(0-0.5)
Neutrophils % 87.0 H %
(42.2-75.2)
Lymphocytes % 2.4 L %
(20.5-51.1)
Monocytes % 9.4 H %
(1.7-9.3)
PT 15.8 H Sec
(11.4-14.6)
APTT 35.4 H Sec
(23.4-35.0)
Sodium 124 L mmol/L
(135-145)
Chloride 93 L mmol/L
(98-107)
Carbon Dioxide 21 L mmol/L
(22-30)
BUN 49 H mg/dl
(9-20)
Creatinine 3.0 H mg/dL
(0.7-1.3)
Glucose 189 H mg/dl
(70-99)
Total Protein 6.2 L g/dl
(6.3-8.2)
01/19/24 12:08
01/19/24 12:08
Vital Signs
Initial and Last Documented VS:
Initial Vital Signs
Temp Pulse Resp BP Pulse Ox
97.5 F 60 22 155/80 89
01/19/24 11:27 01/19/24 11:27 01/19/24 11:27 01/19/24 11:27 01/19/24 11:27
Last Documented Vital Signs
Temp Pulse Resp BP Pulse Ox
97.5 F 80 20 168/90 92
01/19/24 11:27 01/19/24 12:15 01/19/24 12:15 01/19/24 12:08 01/19/24 12:15
MDM/Problems Addressed
Differential Diagnosis Includes:
CHF congestive heart failure renal insufficiency pneumonia doubt PE
MDM/Problems Addressed:
Shortness of breath
Chronic conditions affecting care: DM, HTN, Cardiomyopathy, Immunosuppressed and Kidney disease
Acute Exacerbation and/or Progression of Chronic Illness: DM, HTN, Cardiomyopathy, Immunosuppressed and Kidney disease
*Radiology
Radiology exam reviewed: radiology read reviewed
*Pulse Oximetry
Patient hypoxic: yes
*EKG
Interpreted by ED Provider?: Yes
Interpretation: abnormal
Comparison EKG: no comparison EKG present
Heart Rate: 78
Rate: normal
Rhythm: sinus
Ischemia: non-specific ST changes
*Sausage [employer]er Interpretation
Rate: normal
Interpretation: normal
Heart Rate: 78
Rhythm: sinus
*Critical Care Note
Total Time (30-74mins, 75-104mins- exclusive of procedures): 30
Update Note
Update Note:
Update patient with hypoxia heart failure an outpatient x-ray started on diuretics supplemental oxygen will require admission message sent to hospitalist and nephrology
ED Attending Note
-
Portions of this chart may have been created with voice recognition software.� Occasional wrong word or��sound alike� substitutions may have occurred due to the inherent limitations of voice recognition software.
Discharge Plan
Departure
Patient Disposition: Admit
Date of Disposition: 01/19/24
Time of Disposition: 13:44
Admit to: Telemetry
Presentation/result/management discussed w/ accepting MD/DO: Hospitalist
Patient with high blood pressure during this ER visit?: No
Condition: Fair
Covid-19: Not Applicable
Discharge Problem:
Chronic kidney disease, stage 3b, Diastolic CHF, Immunocompromised, Chronic metabolic acidosis
Prescriptions:
No Action
insulin glargine [Lantus Solostar U-100 Insulin] 300 UNITS/3 ML insulin pen
3 units SC DAILY@1200
Tradjenta 5 MG tablet
5 mg PO DAILY
insulin aspart U-100 [Novolog FlexPen U-100 Insulin] 300 UNITS/3 ML insulin pen
2 units SC MEALS
gabapentin 300 MG capsule
300 mg PO HS
aspirin 81 MG tablet,chewable
81 mg PO DAILY
prednisone 5 mg Tablet
5 mg PO DAILY
acetaminophen [Tylenol Extra Strength] 500 mg Tablet
1,000 mg PO BIDPRN PRN (Reason: mild pain)
pravastatin 10 mg Tablet
10 mg PO HS
sodium bicarbonate 650 mg Tablet
650 mg PO DAILY
amlodipine [Norvasc] 10 mg Tablet
10 mg PO DAILY
escitalopram oxalate [Lexapro] 10 mg Tablet
10 mg PO DAILY
mycophenolate sodium 180 mg tablet,delayed release (DR/EC)
360 mg PO BID
labetalol 200 mg tablet
200 mg PO BID
Medical Marijuana
0.5 gummy PO HSPRN PRN (Reason: sleep)
furosemide [Lasix] 20 mg tablet
20 mg PO Q OTHER DAY Qty: 15 0RF
furosemide [Lasix] 40 mg tablet
40 mg PO Q OTHER DAY Qty: 15 0RF
Referrals:
Omar Mauricio MD [Family Provider] -
Interventions
Interventions:
*Risk Screen - Suicide Last Done: 01/19/24 11:27
*General Assessment Last Done: 01/19/24 11:27
*Neglect/Abuse Screening Last Done: 01/19/24 11:27
ED- Cardiac Assessment Last Done: 01/19/24 12:10
ED- Pulmonary Assessment Last Done: 01/19/24 12:10
Discharge Date and Time
Print Language: YI
[2024-01-19 12:28] LABS: INR 1.27; PT 15.8 Sec (11.4-14.6)
[2024-01-19 12:29] LABS: APTT 35.4 Sec (23.4-35.0)
[2024-01-19 12:40] LABS: ALT (SGPT) 22 U/L (0-50); AST (SGOT) 26 U/L (17-59); Albumin 3.9 g/dl (3.5-5.0); Alkaline Phosphatase 102 U/L (38-126); Blood Urea Nitrogen 49 mg/dl (9-20); Calcium 8.9 mg/dl (8.4-10.2); Carbon Dioxide 21 mmol/L (22-30); Chloride 93 mmol/L (98-107); Glucose 189 mg/dl (70-99); Magnesium 1.7 mg/dl (1.6-2.3); Potassium 4.1 mmol/L (3.5-5.1); Sodium 124 mmol/L (135-145); Total Bilirubin 1.1 mg/dl (0.2-1.3); Total Protein 6.2 g/dl (6.3-8.2); eGFR 22.77
[2024-01-19 12:42] LABS: Troponin I 0.016 ng/ml
--- NOTE | 2024-01-19 13:58 | HPS.HSE ---
Family Physician
-
Family Physician: Omar Mauricio
Chief Complaint
-
Shortness of breath and orthopnea
History of Present Illness
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 Ruiz from nephrology; baseline creatinine 3-3.5) that presented to the ED today with a complaint
of shortness of breath.
He states that he has had shortness of breath that started a few days ago though was not initially severe. It has been worsening though states it is not as severe as it was a few months ago when he had an admission for heart failure. States he has
been compliant with his diuretic and other medications. Complains of orthopnea and worsening exertional dyspnea recently as well. Stated he had a chest x-ray as an outpatient today though results are unknown.
Upon arrival to the ED was afebrile, hemodynamically stable, on room air with SpO2 in the range of 89 to 93%. Labs showed hemoglobin 9.2, platelets 110, sodium 1.4, chloride 39, BUN 49, creatinine 3.0, chest x-ray showed diffusely increased
interstitial marking and bilateral pleural effusions and mild cardiomegaly. ECG showed normal sinus rhythm with nonspecific ST and T wave abnormalities, no signs of acute ischemia. Was given 80 mg IV Lasix in the ED.
Medical History
Past Medical History
Past Medical History: Reports CHF and Renal Failure (ESRD Hx)
Past Surgical History: Reports Other
Additional Past Surgical History:
Renal transplant�[facility], living and unrelated donor
Social History
Tobacco: Non-smoker
Alcohol: None
Drug: None
Family History
Family History: Not pertinent
Allergies / Home Medications
Allergies reflects when Allergies were last updated in [employer].
Home Medications with original date entered in [employer]
Allergy/Medication List:
NKDA
Review of Systems
-
History Source: Patient
A 12 point ROS was completed and negative except as noted: Yes
Constitutional: Reports No Symptoms
EENT: Reports No Symptoms
Respiratory: Reports Trouble Breathing
Cardiac: Reports No Symptoms
Abdomen/GI: Reports No Symptoms
: Reports No Symptoms
Musculoskeletal: Reports No Symptoms
Skin: Reports No Symptoms
Neurological: Reports No Symptoms
Endocrine: Reports No Symptoms
Hematologic/Lymphatic: Reports No Symptoms
Physical Exam
Vital Signs
Vital Signs
Temp Pulse Resp BP Pulse Ox
97.5 F 80 20 168/90 92
01/19/24 11:27 01/19/24 12:15 01/19/24 12:15 01/19/24 12:08 01/19/24 12:15
Physical Exam
General: No Apparent Distress and Comfortable; No Respiratory Distress
HEENT: NormoCephalic, Anicteric, Moist mucous membranes and Atraumatic
Respiratory: Rales (Bibasilar) and Non Labored Respirations; No Wheezes, Rhonchi or Accessory Resp Muscle Use
Cardiac: S1/S2, Regular Rhythm, Peripheral Edema and JVD; No Murmur, Rub or Gallop
GI: Soft, Non Tender, Non Distended and Normal Bowel Sounds
Musculoskeletal: No Clubbing, No Cyanosis and Other (No gross deformity)
Skin: Warm and Dry; No Rash or Jaundice
Neuro: AO x 3, Nonfocal/grossly intact and Cranial Nerves Intact; No Tremors
Psych: Calm
Laboratory Results
-
01/19/24 12:08
01/19/24 12:08
Laboratory Results
PT 15.8 Sec (11.4-14.6) H 01/19/24 12:08
INR 1.27 01/19/24 12:08
APTT 35.4 Sec (23.4-35.0) H 01/19/24 12:08
Total Bilirubin 1.1 mg/dl (0.2-1.3) 01/19/24 12:08
AST 26 U/L (17-59) 01/19/24 12:08
ALT 22 U/L (0-50) 01/19/24 12:08
Alkaline Phosphatase 102 U/L (38-126) 01/19/24 12:08
Troponin I 0.016 ng/ml 01/19/24 12:08
Data Reviewed
-
Diagnostic Radiology: Image Personally Visualized and interpreted and Discussed with Patient
Lab Data: Labs Reviewed by me and Discussed with Patient
Impression/Plan
-
#Acute on chronic HFmrEF -- LVEF 42% per stress TTE in August
-Unclear etiology of heart failure, stress echo showed possible ischemic findings; cath deferred due to renal transplant
-GDMT: Labetalol; no POLLY/ARB, MRA, SGLT2; therapy likely limited by renal function and transplant history
-Home loop diuretic regimen includes Lasix; no sequential nephron blockade or additional diuretics
-Presented with clinical signs of hypervolemia, shortness of breath, x-ray with signs of pulmonary edema
-Was started on IV Lasix 80 mg in the ED
-Warm and wet phenotype
Plan
-Continue with IV Lasix 40 mg twice daily
-Monitor I's/O's, daily weights, daily BMP
-Continue with current GDMT
-Order TTE to reassess LVEF
-Cardiology consult
#Hypervolemic hyponatremia -- Acute
#Chronic hyponatremia -- Baseline 130, question if this is associated with renal transplant or medication
-Secondary to heart failure, hypervolemic state with pulmonary edema
-Seems to have a chronic component with persistently low sodium levels
-Sodium was 124 on arrival, hypervolemic in the context of decompensated heart failure
-Will provide IV diuretics and trend BMP as above, added on serum Osm
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
#H/O ESRD -- diabetic nephropathy
-Currently on immunosuppressive therapy with MMF and low-dose prednisone, chronic bicarbonate therapy
-Baseline creatinine, per patient is near 3.5 but may be slightly lower
-Upon arrival his BUN was 49 with creatinine 3.0, no significant acidemia, K normal
-Stable on current regimen, will monitor for signs of rejection
-Last creatinine outpatient year 3.8, nephrology consulted for further guidance
#Hypertension
-Primary, unclear if elevated blood pressure is related to his ESRD history, no other systemic findings known
-Home medications include labetalol, amlodipine; also on Lasix
-Blood pressure was moderately elevated in the ED, receiving IV diuretics now
-Will continue to monitor adjust BP meds as needed
#Type 2 diabetes mellitus -- insulin-dependent
-No recent A1c history; C/B neuropathy and potentially diabetic nephropathy
-Regimen includes insulin glargine, insulin aspart with meals, Tradjenta
-Tradjenta held on admission, transition to ISS with Accu-Cheks
-Will monitor Accu-Cheks, blood glucose goal 100-200 while hospitalized
#Normocytic anemia
-Chronic, previous iron studies were consistent with chronic disease state/CKD
-Hemoglobin baseline seems to run near 9.0, +/-0.5 or so; no signs of bleeding today
-Will monitor CBC while in the hospital
#Dyslipidemia
-No known history of ASCVD, high risk with previous ESRD state
-Home regimen includes moderate intensity statin and ezetimibe
#GERD
-Home medication includes daily PPI
-No known history of PE or erosive disease
-No red flag symptoms today, well-controlled
# Anxiety
-Stable on Lexapro
DVT prophylaxis: Heparin
Diet: Carb controlled, no added salt
CODE STATUS: Full code
Disposition: Admit to telemetry
I will be admitting Eugenio Tena to telemetry for decompensated heart failure with minimally reduced ejection fraction. He is at a high risk of morbidity and mortality due to decompensated heart failure and risk for respiratory compromise or
arrhythmias. He will need monitoring of his renal function on IV diuretics, telemetry assessment for underlying arrhythmias, repeat echocardiogram to assess ejection fraction, and evaluation by cardiology. I have spoken with the ED physician,
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
--- NOTE | 2024-01-19 15:01 | W.CON.NEPH ---
Consultation
-
Date/Time Consultation Requested: January 19, 2024 2 PM
Date/Time Consultation Performed: January 19, 2024 3 PM
Requesting Provider: Dr. Betancourt
Performing Provider: Dr. Horton
Reason for Consultation: CKD4, transplant
Medical History
-
Chief Complaint: Shortness of breath
History of Present Illness:
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 His immunosuppression regimen
includes prednisone, Myfortic, tacrolimus. He does not recall his last tacrolimus level and does not believe it was checked in the last 2 blood draws which he usually has. He does have progressive CKD at stage IV with baseline creatinine now
running around 3.0 by his report. He has also had a history of nephrotic range proteinuria. He has diabetes mellitus type 2 typically controlled on insulin though not as much lately. Since he had retired he says that his diet has not been good
for his medical issues. He maintains Lasix therapy at home and states that his weights do fluctuate. He does have known heart failure with preserved ejection fraction. He comes in today because of 3 days of worsening shortness of breath. He says
that if anything his weights are slightly lower. He was able to sleep in bed recently. We are asked to assist with management of his CKD and transplant.
Past Medical History
Living unrelated renal transplant February 2020 [facility], prior peritoneal dialysis, hypertension, Diazemuls type II, CKD 4, peripheral arterial disease with carotid artery disease and bilateral carotid endarterectomy, hyperlipidemia,
depression, anemia, thickened distal esophagus, heart failure preserved ejection fraction
Social History
No current tobacco or alcohol
Family History
Family History: Not Pertinent
Allergies / Home Medications
Allergy/AdvReac Type Severity Reaction Status Date / Time
No Known Allergies Allergy Verified 07/31/23 08:59
�Medication �Instructions �Recorded �Confirmed �Type
insulin glargine 100 unit/mL (3 4 units SC DAILY@1200 Diabetes 02/18/21 08/09/24 History
mL) subcutaneous pen (Lantus
Solostar U-100 Insulin)
linagliptin 5 mg tablet (Tradjenta) 5 mg PO DAILY Diabetes 07/30/20 01/19/24 History
insulin aspart U-100 100 unit/mL 4 units SC MEALS Diabetes 08/03/20 01/19/24 History
(3 mL) subcutaneous pen (Novolog
FlexPen U-100 Insulin aspart)
aspirin 81 mg chewable tablet 81 mg PO DAILY Blood clot 09/02/21 01/19/24 History
prevention/tx
gabapentin 300 mg capsule 300 mg PO HS Pain 09/02/21 01/19/24 History
acetaminophen 500 mg tablet 1,000 mg PO BIDPRN PRN mild pain 05/02/23 01/19/24 History
(Tylenol Extra Strength)
amlodipine 10 mg tablet (Norvasc) 10 mg PO DAILY Blood Pressure 05/02/23 01/19/24 History
escitalopram oxalate 10 mg tablet 10 mg PO DAILY Mental 05/02/23 01/19/24 History
(Lexapro) Health/Anxiety
mycophenolate sodium 180 mg 360 mg PO BID renal transplant 05/02/23 01/19/24 History
tablet,delayed release
pravastatin 10 mg tablet 10 mg PO HS High Cholesterol 05/02/23 01/19/24 History
prednisone 5 mg tablet 5 mg PO DAILY Anti-Inflammatory 05/02/23 01/19/24 History
labetalol 200 mg tablet 200 mg PO BID Blood Pressure 07/31/23 01/19/24 History
Codeine Syrup 2 tbsp PO HSPRN PRN sleep 01/19/24 01/19/24 History
ezetimibe 10 mg tablet 10 mg PO DAILY 01/19/24 01/19/24 History
furosemide 80 mg tablet 40 mg PO DAILY 01/19/24 01/19/24 History
mirabegron 50 mg tablet,extended 50 mg PO DAILY 01/19/24 01/19/24 History
release 24 hr
pantoprazole 40 mg tablet,delayed 40 mg PO DAILY 01/19/24 01/19/24 History
release
Review of Systems
-
Shortness of breath as described above. No chest pain. No worsening lower extremity edema.
All other systems: Negative unless noted
Physical Exam
Vital Signs
Vital Signs
Temp Pulse Resp BP Pulse Ox
97.5 F 82 18 153/83 94
01/19/24 11:27 01/19/24 14:15 01/19/24 14:15 01/19/24 14:00 01/19/24 14:15
Lab Results
WBC 9.8 10^3/uL (4.8-10.8) 01/19/24 12:08
RBC 3.04 10^6/uL (4.70-6.10) L 01/19/24 12:08
Hgb 9.2 g/dL (13.0-18.0) L 01/19/24 12:08
Hct 26.5 % (39.0-52.0) L 01/19/24 12:08
Plt Count 110 10^3/uL (130-400) L 01/19/24 12:08
Sodium 124 mmol/L (135-145) L 01/19/24 12:08
Potassium 4.1 mmol/L (3.5-5.1) 01/19/24 12:08
Chloride 93 mmol/L (98-107) L 01/19/24 12:08
Carbon Dioxide 21 mmol/L (22-30) L 01/19/24 12:08
BUN 49 mg/dl (9-20) H 01/19/24 12:08
Creatinine 3.0 mg/dL (0.7-1.3) H 01/19/24 12:08
eGFR 22.77 01/19/24 12:08
Glucose 189 mg/dl (70-99) H 01/19/24 12:08
Calcium 8.9 mg/dl (8.4-10.2) 01/19/24 12:08
Albumin 3.9 g/dl (3.5-5.0) 01/19/24 12:08
Physical Exam
Patient is awake alert oriented and in no distress. Mood and affect were pleasant, insight and judgment were good. Pupils are equal round and reactive to light, extraocular movements are intact, sclera were anicteric. Hearing was normal, ears and
nose are intact. Oropharynx was clear. Neck was supple with trachea midline and no thyromegaly. Heart was regular rate and rhythm without rubs. Lower extremities with 1+ edema. Lungs were coarse to auscultation bilaterally and with normal
excursion. Abdomen was soft, nontender, with normal active bowel sounds, and no hepatosplenomegaly. Skin was without rash and with normal turgor.
Data Reviewed
-
Radiology: Image Personally Visualized and interpreted (chest x-ray on January 19, 2024 by my reading shows vascular prominence)
Medical Tests (Nuc Med, Echo etc): Image Personally Visualized and interpreted (EKG on January 19, 2024 by my reading shows normal sinus rhythm)
Labs: Labs Reviewed by me (Hemoglobin 9.2, creatinine 3.0, potassium 4.1, sodium 124, BNP 20 2800)
Old Records: Reviewed
Critical Care Time (in minutes): Past creatinines noted in the [employer] system
Assessment/Plan
-
Assessment:
Acute HFpEF
Renal transplant (02/18/20) [facility]-living unrelated
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
Hypertension with history of orthostasis
CKD4-last cr 3.02 at [facility] visit -Dr Leon
met acidosis
Type 2 diabetes
Hypercholesterolemia
Depression
Anemia
Hyponatremia
Severe thickening of distal esophagus by imaging
Plan:
Check tacrolimus level
Follow BMP
IV Lasix
Continue immunosuppressant therapy
Hyponatremia likely due to heart failure
Needs to modify diet long-term
[2024-01-19 15:04] LABS: NT-proBNP 22800 pg/ml
--- NOTE | 2024-01-19 15:11 | CON.CAR ---
Addendum entered and electronically signed by Bryce Giraldo MD 01/19/24 16:06:
I saw and examined the patient.
The Health Promotion Officer's note was reviewed and I agree with the note.
Comment: Briefly, 61-year-old man past medical history of renal transplant and heart failure with preserved ejection fraction who is presenting with dyspnea on exertion
On presentation to the emergency department he was found to be hypoxic requiring supplemental oxygen via nasal cannula, proBNP was elevated over 22,000 and chest x-ray was consistent with pulmonary edema all concerning for acute decompensated heart
failure
Warm and well-perfused. Abdominal distention on exam but no peripheral edema.
Agree with IV Lasix to improve his volume status
Wean oxygen as able
Follow daily standing weights and renal function
Given baseline creatinine of 3.0 will avoid SGLT2 or Aldactone
Plan for repeat echo
Original Note:
Consultation
Consultation Request
Date/Time Consultation Performed: 01/19/24
Requesting Provider: Dr. Arredondo
Performing Provider: Holly Fairchild PA-C for Dr. Giraldo
Reason for Consultation: CHF
Medical History
-
Chief Complaint: SOB
History of Present Illness:
Patient is a 63-year-old male with past medical history of renal transplant in 2019 previously on PD, chronic immunosuppression, carotid disease status post bilateral carotid endarterectomy, type 2 diabetes, hypertension, hyperlipidemia who had
recent admission to [facility] 07/2023 for acute heart failure. Since that time he has been on diuretic. After this admission he had a sestamibi study 08/17/23 showing medium size predominantly fixed RCA distribution defect with small
predominantly reversible anterior apical and apical defects with EF 42%. Echo with preserved EF and no regional wall motion abnormalities. Due to his risk of contrast nephropathy, he is being managed medically for possible coronary disease. He
reports he has been compliant with p.o. Lasix 40 mg twice daily. He reports over the last 3 days he has noted progressive dyspnea on exertion. He denies lower extremity edema however has noted weight gain from his dry weight of 175 pounds to
approximately 186 pounds. He denies chest discomfort. He reports the last 3 nights he has not slept in reports some abdominal bloating. proBNP 22,800, highest it has ever been. Chest x-ray with evidence of interstitial edema consistent with
acute heart failure. Cardiology consulted for evaluation. Creatinine 3.0.
PMH:
Chronic HFpEF
CKD IV
HTN
s/p living, unrelated renal transplant RLQ at [facility] 01/15/20
previously on PD
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
was not taking mycophenolate 2020 until 2022, he forgot
Chronic immunosuppressed state
Carotid artery disease s/p B/L carotid endarterectomy 2017
Type 2 diabetes
Diabetic nephropathy
Hypertension
Hypercholesterolemia
Depression
Anemia
Hyponatremia
Severe thickening of distal esophagus by imaging
Past Medical History
Past Medical History: Other (in HPI)
Past Surgical History: Cardiac (right CEA 08/2017, left CEA 02/2018) and Other (renal transplant at [facility] 01/2020)
Social History
Tobacco: Non-Smoker
Alcohol: Occasional
Drug: None
Personal:
Living: With Family
Employment: Employed
Family History
Family History: CAD
Allergies / Home Medications
Allergy/AdvReac Type Severity Reaction Status Date / Time
No Known Allergies Allergy Verified 07/31/23 08:59
�Medication �Instructions �Recorded �Confirmed �Type
insulin glargine 100 unit/mL (3 4 units SC DAILY@1200 Diabetes 07/30/20 01/19/24 History
mL) subcutaneous pen (Lantus
Solostar U-100 Insulin)
linagliptin 5 mg tablet (Tradjenta) 5 mg PO DAILY Diabetes 07/30/20 01/19/24 History
insulin aspart U-100 100 unit/mL 4 units SC MEALS Diabetes 08/03/20 01/19/24 History
(3 mL) subcutaneous pen (Novolog
FlexPen U-100 Insulin aspart)
aspirin 81 mg chewable tablet 81 mg PO DAILY Blood clot 09/02/21 01/19/24 History
prevention/tx
gabapentin 300 mg capsule 300 mg PO HS Pain 09/02/21 01/19/24 History
acetaminophen 500 mg tablet 1,000 mg PO BIDPRN PRN mild pain 05/02/23 01/19/24 History
(Tylenol Extra Strength)
amlodipine 10 mg tablet (Norvasc) 10 mg PO DAILY Blood Pressure 05/02/23 01/19/24 History
escitalopram oxalate 10 mg tablet 10 mg PO DAILY Mental 05/02/23 01/19/24 History
(Lexapro) Health/Anxiety
mycophenolate sodium 180 mg 360 mg PO BID renal transplant 05/02/23 01/19/24 History
tablet,delayed release
pravastatin 10 mg tablet 10 mg PO HS High Cholesterol 05/02/23 01/19/24 History
prednisone 5 mg tablet 5 mg PO DAILY Anti-Inflammatory 05/02/23 01/19/24 History
labetalol 200 mg tablet 200 mg PO BID Blood Pressure 07/31/23 01/19/24 History
Codeine Syrup 2 tbsp PO HSPRN PRN sleep 01/19/24 01/19/24 History
ezetimibe 10 mg tablet 10 mg PO DAILY 01/19/24 01/19/24 History
furosemide 80 mg tablet 40 mg PO DAILY 01/19/24 01/19/24 History
mirabegron 50 mg tablet,extended 50 mg PO DAILY 01/19/24 01/19/24 History
release 24 hr
pantoprazole 40 mg tablet,delayed 40 mg PO DAILY 01/19/24 01/19/24 History
release
Review of Systems
-
History Source: Patient
All other systems: Negative unless noted
Physical Exam
Vital Signs
Temp Pulse Resp BP Pulse Ox
97.5 F 82 18 153/83 94
01/19/24 11:27 01/19/24 14:15 01/19/24 14:15 01/19/24 14:00 01/19/24 14:15
Lab Results
01/19/24 12:08
01/19/24 12:08
Troponin I 0.016 ng/ml 01/19/24 12:08
Nqf-X-Ofmylajcuba Pept 00127 pg/ml 01/19/24 12:08
Physical Exam
General: No Apparent Distress and Other (on supp O2. appears older than stated age)
HEENT: Normocephalic, Anicteric and Moist Mucous Membranes
Respiratory: Wheezes, Crackles and Non Labored Respirations
Cardiac: S1/S2 and Regular Rhythm
GI: Soft, Non Tender, Normal Bowel Sounds and Distended (mild)
Musculoskeletal: No Clubbing, No Cyanosis and No Edema
Skin: Warm and Dry
Neuro: AO x 3
Impression / Plan
-
Primary Territory Business Manager: Dr. ISABEL Ruiz
Assessment:
Presentation with PALM
Acute on chronic HFpEF
Acute on chronic Hyponatremia
CKD IV
HTN
s/p living, unrelated renal transplant RLQ at [facility] 01/15/20
previously on PD
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
was not taking mycophenolate 2020 until 2022, he forgot
Chronic immunosuppressed state
Carotid artery disease s/p B/L carotid endarterectomy 2017
Type 2 diabetes
Diabetic nephropathy
Hypertension
Hypercholesterolemia
Depression
Anemia
Severe thickening of distal esophagus by imaging
Echo 07/31/2023: EF 54%, no regional wall motion abnormalities noted, mild MR
Lexiscan nuclear stress test 08/17/2023: medium size predominantly fixed RCA distribution defect with small predominantly reversible anterior apical and apical defects with EF 42%
Plan:
-Patient presents with dyspnea on exertion, progressive over the last 3 days.
-proBNP elevated at 22,800 and chest x-ray with evidence of interstitial edema consistent with acute heart failure
-He was given IV Lasix 80 mg in ER. Assess response. Continue 40 mg IV Lasix twice daily. Creatinine stable at 3, will need to monitor closely with diuresis. Dry weight felt to be 175 pounds per patient
-Follow sodium. Nephrology following as well.
-CHF education
-Wean supplemental oxygen as able
-Trop 0.016. No chest pain. He had Lexiscan stress test 08/17/2023 with results as above. Ideally patient would be cathed at some point, however given current renal insufficiency, plan for medical management as possible
-He states he would not want dialysis again
-Continue labetalol, Norvasc
-Continue aspirin, pravastatin, zetia
-He is not a candidate for SGLT2 inhibitor given prior DKA
Data Reviewed
-
EKG: Tracing Personally Visualized and interpreted
Radiology: Report Reviewed by me
Medical Tests (Nuc Med, Echo etc): Report Reviewed by me
Labs: Labs Reviewed by me
Old Records: Reviewed
[2024-01-19 15:34] LABS: Osmolality Serum 282 mOsm/kg (275-300)
--- NOTE | 2024-01-19 16:00 | PTCARENOTE ---
Received pt from ER.Pt awake,alert and oriented x3. Pt c/o mild neck pain, medicated with Tylenol with relief, Pt VSS 94% on 5L oxygen. Pt continues with PALM, reports improved with initiation of oxygen. Pt has multiple bruises and scabbed abrasions
LEAD PHP DEVELOPER. Pt oriented to room, call addison within reach, plan of care continues.
[2024-01-19 16:30] LABS: Glucose - Point of Care 168 mg/dl (70-99)
[2024-01-19] MEDS: HEPARIN 5000 UNITS SC ×2 (16:41→23:00)
[2024-01-19] MEDS: TYLENOL 1000 MG PO (16:41)
[2024-01-19] MEDS: NOVOLOG FLEXPEN 2 UNITS SC (16:42)
[2024-01-19] MEDS: NOVOLOG FLEXPEN-MODERATE RESISTANCE 1 UNITS SC (16:42)
[2024-01-19] MEDS: MYFORTIC DELAYED REL. 360 MG PO (20:22)
[2024-01-19] MEDS: TRANDATE 200 MG PO (20:23)
[2024-01-19 20:56] LABS: Glucose - Point of Care 213 mg/dl (70-99)
[2024-01-19] MEDS: PRAVACHOL 10 MG PO (22:05)
[2024-01-19] MEDS: NEURONTIN 300 MG PO (22:05)
[2024-01-20 03:28] VITALS: BP 157/91
[2024-01-20 06:00] VITALS: BMI 27.4
[2024-01-20 07:05] VITALS: BP 156/87
[2024-01-20 07:08] LABS: Glucose - Point of Care 199 mg/dl (70-99)
[2024-01-20] MEDS: TRANDATE 200 MG PO (09:01)
[2024-01-20] MEDS: SODIUM BICARBONATE 650 MG PO (09:01)
[2024-01-20] MEDS: NORVASC 10 MG PO (09:01)
[2024-01-20] MEDS: LEXAPRO 10 MG PO (09:01)
[2024-01-20] MEDS: DELTASONE 5 MG PO (09:02)
[2024-01-20] MEDS: MYFORTIC DELAYED REL. 360 MG PO ×2 (09:02→21:24)
[2024-01-20] MEDS: LOW STRENGTH ASPIRIN 81 MG PO (09:02)
[2024-01-20] MEDS: NOVOLOG FLEXPEN 2 UNITS SC ×3 (09:03→17:39)
[2024-01-20] MEDS: HEPARIN 5000 UNITS SC ×2 (09:03→17:36)
[2024-01-20] MEDS: NOVOLOG FLEXPEN-MODERATE RESISTANCE 1 UNITS SC (09:04)
[2024-01-20 09:09] LABS: Total Iron Binding Capacity 210 ug/dl (261-462)
[2024-01-20 09:18] LABS: Iron < 20 ug/dl (49-181)
[2024-01-20 09:20] LABS: % Basophils 0.5 % (0-2); % Eosinophils 1.7 % (0-6); % Immature Granulocytes 0.4 % (0-0.5); % Lymphocytes 5.6 % (20.5-51.1); % Monocytes 9.5 % (1.7-9.3); % Neutrophils 82.3 % (42.2-75.2); Absolute Eosinophils 0.1 10^3/uL (0-0.7); Absolute Lymphocytes 0.5 10^3/uL (1.2-3.4); Absolute Monocytes 0.8 10^3/uL (0.1-0.6); Absolute Neutrophils 6.7 10^3/uL (1.4-6.5); Hematocrit 26.3 % (39.0-52.0); Hemoglobin 9.1 g/dL (13.0-18.0); Mean Corp Hgb Conc. 34.6 g/dL (33.0-37.0); Mean Corpuscular Hgb 30.5 pg (27.0-31.0); Mean Corpuscular Volume 88.3 fL (80.0-94.0); Mean Platelet Volume 9.8 fL (7.4-10.4); Nucleated Red Blood Cells % 0 % (-); Platelet Count 131 10^3/uL (130-400); Red Blood Cell Count 2.98 10^6/uL (4.70-6.10); Red Cell Dist. Width 12.6 % (11.5-14.5); White Blood Cell Count 8.2 10^3/uL (4.8-10.8)
[2024-01-20 09:51] LABS: Folate 11.2 ng/ml (2.76-20); Vitamin B12 248 pg/ml (239-931)
[2024-01-20 09:55] LABS: Blood Urea Nitrogen 51 mg/dl (9-20); Calcium 8.8 mg/dl (8.4-10.2); Carbon Dioxide 22 mmol/L (22-30); Chloride 93 mmol/L (98-107); Estimated Creatinine Clearance 26 ml/min; Glucose 214 mg/dl (70-99); Potassium 3.5 mmol/L (3.5-5.1); Sodium 125 mmol/L (135-145); eGFR 23.72
[2024-01-20] MEDS: LASIX 40 MG IV ×2 (09:56→17:36)
[2024-01-20 11:00] VITALS: BP 145/77
--- NOTE | 2024-01-20 11:03 | W.PN.CARDCBS ---
Addendum entered and electronically signed by Bryce Giraldo MD 01/20/24 13:43:
I saw and examined the patient.
The Dough Cutting Machine Operator's note was reviewed and I agree with the note.
Comment: Briefly, 63M PMHx renal transplant and heart failure with preserved ejection fraction who is presenting in acute CHF
TTE with newly reduced LV function, LVEF 30-35%
Cont IV Lasix to improve his volume status, appreciate nephrology input
Wean oxygen as able
Follow daily standing weights and renal function
Given baseline creatinine of 3.0 will avoid POLLY/ARB/ARNI, Aldactone and SGLT2
Switch labetolol to Coreg
Add hydralazine for afterload reduction
Original Note:
Today's Communication / Plan
-
Continue diuresis
Consider iron supplementation
Wean supplemental oxygen as able
Follow creatinine, sodium
Impression / Plan
-
Primary Hide Grader: Dr. ISABEL Ruiz
Assessment:
Presentation with PALM
Acute on chronic HFpEF
Acute on chronic Hyponatremia
CKD IV
HTN
s/p living, unrelated renal transplant RLQ at [facility] 01/15/20
previously on PD
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
was not taking mycophenolate 2020 until 2022, he forgot
Chronic immunosuppressed state
Carotid artery disease s/p B/L carotid endarterectomy 2017
Type 2 diabetes
Diabetic nephropathy
Hypertension
Hypercholesterolemia
Depression
Anemia
Severe thickening of distal esophagus by imaging
Echo 07/31/2023: EF 54%, no regional wall motion abnormalities noted, mild MR
Lexiscan nuclear stress test 08/17/2023: medium size predominantly fixed RCA distribution defect with small predominantly reversible anterior apical and apical defects with EF 42%
Plan:
-Patient presented with dyspnea on exertion and evidence of acute CHF.
-responding to IV diuresis, continue. Cr stable at 2.9. Dry weight felt to be 175 pounds per patient
-Follow sodium. Nephrology managing
-Consider iron supplementation
-CHF education
-Wean supplemental oxygen as able
-Trop 0.016. No chest pain. He had Lexiscan stress test 08/17/2023 with results as above. Ideally patient would be cathed at some point, however given current renal insufficiency, plan for medical management as possible
-He states he would not want dialysis again
-Continue labetalol, Norvasc
-Continue aspirin, pravastatin, zetia
-He is not a candidate for SGLT2 inhibitor given prior DKA
Progress Note - Hide Grader
Subjective
Date of Service: January 20, 2024
Remains with some conversational dyspnea, however overall feels that breathing starting to improve. No chest pain
Objective
Labs:
01/20/24 09:
01/20/24 09:
Labs
Hgb 9.1 g/dL (13.0-18.0) L 01/20/24 09:
Hct 26.3 % (39.0-52.0) L 01/20/24 09:
Plt Count 131 10^3/uL (130-400) 01/20/24 09:
PT 15.8 Sec (11.4-14.6) H 01/19/24 12:08
INR 1.27 01/19/24 12:08
APTT 35.4 Sec (23.4-35.0) H 01/19/24 12:08
Sodium 125 mmol/L (135-145) L 01/20/24 09:
Potassium 3.5 mmol/L (3.5-5.1) 01/20/24 09:
BUN 51 mg/dl (9-20) H 01/20/24 09:
Creatinine 2.9 mg/dL (0.7-1.3) H 01/20/24 09:01
Glucose 214 mg/dl (70-99) H 01/20/24 09:01
Troponins
01/19/24
12:08
Troponin I 0.016
Vital Signs and I&O:
Vital Signs
Temp Pulse Resp BP Pulse Ox
99.1 F 80 18 156/87 91
01/20/24 07:05 01/20/24 09:56 01/20/24 07:05 01/20/24 09:56 01/20/24 07:05
Vital Signs
Temp Pulse Resp BP Pulse Ox
99.1 F 80 18 156/87 91
01/20/24 07:05 01/20/24 09:56 01/20/24 07:05 01/20/24 09:56 01/20/24 07:05
Intake & Output
01/18/24 01/19/24 01/20/24 01/21/24
07:59 07:59 07:59 07:59
Output Total 1000 / 1000
Balance -1000 / -1000
Physical Exam
Physical Exam
GEN: No distress, awake, alert, oriented x3. Older than stated age. On supplemental O2
HEENT: supple, anicteric, mmm, EOMI
LUNGS: Crackles B/L bases, no wheezes/rales
CV: Reg, S1/S2, no murmur
ABD: soft, BS+
EXT: No cyanosis, clubbing. Trace edema of bilateral lower extremity
NEURO: Gross non-focal
SKIN: Warm, pink, dry. No rash
--- NOTE | 2024-01-20 11:24 | W.PN.NEPH.PH ---
Today's Communication / Plan
-
diurese
Assessment/Plan
-
Assessment:
Acute HFpEF
Renal transplant (02/18/20) [place]-living unrelated
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
Hypertension with history of orthostasis
CKD4-last cr 3.02 at [place] visit -Dr Leon
met acidosis
Type 2 diabetes
Hypercholesterolemia
Depression
Anemia
Hyponatremia
Severe thickening of distal esophagus by imaging
Plan:
Check tacrolimus level
Follow BMP
IV Lasix continues
Continue immunosuppressant therapy
standing weights
-
-
Date of Service: January 20, 2024
CC / HPI / ROS
-
Chief Complaint:
CKD4
History of Present Illness:
CKD/Cr stable at 2.9
K stable
Na remains low 125
good UOP with IV lasix for decompensated HF
Review of Systems:
no CP
mild SOB on supplemental O2
Labs
-
Labs:
WBC 8.2 10^3/uL (4.8-10.8) 01/20/24 09:
RBC 2.98 10^6/uL (4.70-6.10) L 01/20/24 09:01
Hgb 9.1 g/dL (13.0-18.0) L 01/20/24 09:01
Hct 26.3 % (39.0-52.0) L 01/20/24 09:01
Plt Count 131 10^3/uL (130-400) 01/20/24 09:01
Sodium 125 mmol/L (135-145) L 01/20/24 09:01
Potassium 3.5 mmol/L (3.5-5.1) 01/20/24 09:
Chloride 93 mmol/L (98-107) L 01/20/24 09:01
Carbon Dioxide 22 mmol/L (22-30) 01/20/24 09:01
BUN 51 mg/dl (9-20) H 01/20/24 09:01
Creatinine 2.9 mg/dL (0.7-1.3) H 01/20/24 09:01
eGFR 23.72 01/20/24 09:01
Glucose 214 mg/dl (70-99) H 01/20/24 09:01
Calcium 8.8 mg/dl (8.4-10.2) 01/20/24 09:01
Res-W-Tmfzizdshmg Pept 10267 pg/ml 01/19/24 12:08
Albumin 3.9 g/dl (3.5-5.0) 01/19/24 12:08
Physical Exam
-
Vital Signs:
Vital Signs
Temp Pulse Resp BP Pulse Ox
99.1 F 80 18 156/87 91
01/20/24 07:05 01/20/24 09:56 01/20/24 07:05 01/20/24 09:56 01/20/24 07:05
Cardiovascular:: Regular rate and rhythm
Respiratory:: Bilateral: Coarse
Lung Excursion:: Normal
Abdomen:: Nontender and Soft
Bowel Sounds:: Normal
Extremity Edema:: +1: Bilateral:
[2024-01-20 11:27] LABS: Glucose - Point of Care 224 mg/dl (70-99)
--- NOTE | 2024-01-20 12:18 | W.PN.HOSP.TC ---
Today's Communication/Plan
-
Continue IV diuretics
Start IV iron per ferric-HF trial, iron sat <20% in context of heart failure
Trend daily BMP
Assessment / Plan
Assessment / Plan
#Acute hypoxemic respiratory insufficiency
#Acute on chronic HFmrEF -- LVEF 42% per stress TTE in August
-Unclear etiology of heart failure, stress echo showed possible ischemic findings; cath deferred due to renal transplant
-GDMT: Labetalol; no POLLY/ARB, MRA, SGLT2; therapy likely limited by renal function and transplant history
-Home loop diuretic regimen includes Lasix; no sequential nephron blockade or additional diuretics
-Was started on IV Lasix 80 mg in the ED with good urinary output; I's and O's with net -1 L in last 24 hours
-Warm and wet phenotype, on 5 L O2 this morning; iron panel with iron sat <20% though not consistent with true DULCE
-Cardiology and nephrology following
Plan
-Continue with IV Lasix 40 mg twice daily
-Start IV iron per ferric-HF trial due to iron sat <20% with heart failure
-Monitor I's/O's, daily weights, daily BMP
-Continue with current GDMT
-Wean O2 as able, SpO2 goal >90%
-Follow-up TTE ordered on admission
#Hypervolemic hyponatremia -- Acute
#Chronic hyponatremia -- Baseline 130, question if this is associated with renal transplant or medication
-Secondary to heart failure, hypervolemic state with pulmonary edema; chronic component with persistently low sodium levels
-Sodium was 124 on arrival, hypervolemic in the context of CHF; Improving with diuretics
-Continue with IV diuretics and BMP trending as above
#Status post renal transplant --at [facility], systems checkout mechanic is Dr. Ruiz
#H/O ESRD -- diabetic nephropathy
-Currently on immunosuppressive therapy with MMF and low-dose prednisone, chronic bicarbonate therapy
-Baseline creatinine, per patient is near 3.5 but may be slightly lower
-Upon arrival his BUN was 49 with creatinine 3.0, no significant acidemia, K normal
-Stable on current regimen, will monitor for signs of rejection
-Last creatinine outpatient year 3.8, nephrology consulted for further guidance
#Hypertension
-Primary, unclear if elevated blood pressure is related to his ESRD history, no other systemic findings known
-Home medications include labetalol, amlodipine; also on Lasix
-Blood pressure was moderately elevated in the ED, receiving IV diuretics now
-Plan to adjust BP meds if needed once euvolemic
#Type 2 diabetes mellitus -- insulin-dependent
-No recent A1c history; C/B neuropathy and potentially diabetic nephropathy
-Regimen includes insulin glargine, insulin aspart with meals, Tradjenta
-Tradjenta held on admission, transition to ISS with Accu-Cheks
-Will monitor Accu-Cheks, blood glucose goal 100-200 while hospitalized
#Normocytic anemia
-Chronic, previous iron studies were consistent with chronic disease state/CKD
-Hemoglobin baseline seems to run near 9.0, +/-0.5 or so; no signs of bleeding today
-Will monitor CBC while in the hospital
#Dyslipidemia
-No known history of ASCVD, high risk with previous ESRD state
-Home regimen includes moderate intensity statin and ezetimibe
#GERD
-Home medication includes daily PPI
-No known history of PE or erosive disease
-No red flag symptoms today, well-controlled
# Anxiety
-Stable on Lexapro
DVT prophylaxis: Heparin
Diet: Carb controlled, no added salt
CODE STATUS: Full code
Anticipated Discharge: 24 - 48 hours
Subjective/Interval History
-
Date of Service: January 20, 2024
Seen and examined at bedside. No acute events overnight. Denies any acute complaints today. States he is tired, did not sleep great. No chest pain or significant shortness of breath this morning. Currently on 5 L of oxygen with SpO2 in the high
90s. States that the oxygen makes his breathing feel better. No fevers or chills, no nausea, vomiting, diarrhea, urinary issues, abnormal bleeding or bruising, paresthesias or weakness.
Objective Data
-
Labs:
Laboratory Results
01/20/24
09:01
WBC 8.2
Hgb 9.1 L
Hct 26.3 L
Plt Count 131
Sodium 125 L
Potassium 3.5
Chloride 93 L
Carbon Dioxide 22
BUN 51 H
Creatinine 2.9 H
Glucose 214 H
Calcium 8.8
Vital Signs:
Vital Signs
Temp Pulse Resp BP Pulse Ox
99.1 F 77 14 145/77 91
01/20/24 11:00 01/20/24 11:00 01/20/24 11:00 01/20/24 11:00 01/20/24 11:00
I&O
01/19/24 01/20/24 01/21/24
06:59 06:59 06:59
Output Total 1000 / 1000
Balance -1000 / -1000
Review of Systems
-
History Source: Patient
All other systems: Reviewed and negative
Physical Exam
-
General: Well Nourished and No Apparent Distress; Negative Respiratory Distress
HEENT: Normocephalic, Atraumatic, Moist Mucous Membranes and Anicteric
Respiratory: Rales (Bibasilar, CTA in upper lung plascencia) and Non Labored Respirations; Negative Wheezes, Rhonchi or Accessory Resp Muscle Use
Cardiac: Regular Rhythm, S1/S2 and JVD (Unable to assess due to habitus); Negative Murmur, Rub or Gallop
GI: Soft, Nontender, Nondistended and Normal Bowel Sounds
Musculoskeletal: No Clubbing, No Cyanosis and No Edema
Skin: Warm and Dry; Negative Rash
Neuro: AO x 3, Nonfocal/Grossly Intact and Central Nerve's Intact
Data Reviewed
-
Labs: Labs Reviewed by me and Discussed with Patient
[2024-01-20] MEDS: LANTUS 0.03 UNITS SC (12:24)
[2024-01-20] MEDS: NOVOLOG FLEXPEN-MODERATE RESISTANCE 3 UNITS SC (12:25)
[2024-01-20] MEDS: FERRLECIT 110 MG IV (14:35)
[2024-01-20 15:05] VITALS: BP 137/76
[2024-01-20 15:54] LABS: Glucose - Point of Care 265 mg/dl (70-99)
--- NOTE | 2024-01-20 16:45 | CM ---
CM met with Eugenio this AM; IA completed
Pt reports he and his reside in a [place] with no DEVAUGHN
SCIENTIFIC PROCESS OPERATOR Eugenio has been (I) amb and adls. Prior HH services, but cannot recall the agency.
Plan: Anticipate discharge to home with no needs.
Pharmacy: [facility]
PCP: Dr Germaine Vincent
[2024-01-20] MEDS: APRESOLINE 25 MG PO ×2 (17:35→21:29)
[2024-01-20] MEDS: NOVOLOG FLEXPEN-MODERATE RESISTANCE 5 UNITS SC (17:39)
[2024-01-20 19:38] VITALS: BP 142/78
[2024-01-20 21:24] LABS: Glucose - Point of Care 249 mg/dl (70-99)
[2024-01-20] MEDS: COREG 6.25 MG PO (21:24)
[2024-01-20] MEDS: PRAVACHOL 10 MG PO (21:24)
[2024-01-20] MEDS: NEURONTIN 300 MG PO (21:24)
[2024-01-20 23:27] VITALS: BP 146/82
[2024-01-21] VITALS (8 sets, daily range): BP systolic 114–153; BP diastolic 79–88; PULSE 69–73; O2SAT 96–98; BMI 27.6
[2024-01-21] MEDS: HEPARIN 5000 UNITS SC ×3 (00:21→16:42)
[2024-01-21 06:54] LABS: % Basophils 0.9 % (0-2); % Eosinophils 6.2 % (0-6); % Immature Granulocytes 0.6 % (0-0.5); % Lymphocytes 4.5 % (20.5-51.1); % Monocytes 12.5 % (1.7-9.3); % Neutrophils 75.3 % (42.2-75.2); Absolute Basophils 0.1 10^3/uL (0-0.2); Absolute Eosinophils 0.4 10^3/uL (0-0.7); Absolute Lymphocytes 0.3 10^3/uL (1.2-3.4); Absolute Monocytes 0.9 10^3/uL (0.1-0.6); Absolute Neutrophils 5.2 10^3/uL (1.4-6.5); Hematocrit 26.2 % (39.0-52.0); Hemoglobin 9.1 g/dL (13.0-18.0); Mean Corp Hgb Conc. 34.7 g/dL (33.0-37.0); Mean Corpuscular Hgb 30.1 pg (27.0-31.0); Mean Corpuscular Volume 86.8 fL (80.0-94.0); Mean Platelet Volume 9.6 fL (7.4-10.4); Nucleated Red Blood Cells % 0 % (-); Platelet Count 154 10^3/uL (130-400); Red Blood Cell Count 3.02 10^6/uL (4.70-6.10); Red Cell Dist. Width 12.5 % (11.5-14.5); White Blood Cell Count 6.9 10^3/uL (4.8-10.8)
[2024-01-21 07:10] LABS: Calcium 8.4 mg/dl (8.4-10.2); Carbon Dioxide 24 mmol/L (22-30); Estimated Creatinine Clearance 26 ml/min; Potassium 3.6 mmol/L (3.5-5.1); eGFR 22.77
[2024-01-21 07:20] LABS: Blood Urea Nitrogen 59 mg/dl (9-20); Chloride 95 mmol/L (98-107); Glucose 184 mg/dl (70-99); Sodium 126 mmol/L (135-145)
[2024-01-21 07:20] LABS: Glucose - Point of Care 224 mg/dl (70-99)
[2024-01-21] MEDS: NOVOLOG FLEXPEN-MODERATE RESISTANCE 3 UNITS SC ×3 (09:07→17:53)
[2024-01-21] MEDS: COREG 6.25 MG PO ×2 (09:08→20:04)
[2024-01-21] MEDS: LASIX 40 MG IV (09:09)
[2024-01-21] MEDS: DELTASONE 5 MG PO (09:09)
[2024-01-21] MEDS: LOW STRENGTH ASPIRIN 81 MG PO (09:10)
[2024-01-21] MEDS: LEXAPRO 10 MG PO (09:10)
[2024-01-21] MEDS: FLUSH (NSS) 2 FLUSH IV ×2 (09:10→13:51)
[2024-01-21] MEDS: MYFORTIC DELAYED REL. 360 MG PO ×2 (09:10→20:05)
[2024-01-21] MEDS: NOVOLOG FLEXPEN 2 UNITS SC ×3 (09:11→17:53)
[2024-01-21] MEDS: NORVASC PO (09:12)
[2024-01-21] MEDS: SODIUM BICARBONATE 650 MG PO (09:12)
[2024-01-21] MEDS: APRESOLINE 25 MG PO (09:13)
[2024-01-21] MEDS: IMDUR (EXTENDED RELEASE) 30 MG PO (09:16)
--- NOTE | 2024-01-21 11:08 | W.PN.HOSP.TC ---
Today's Communication/Plan
-
Continue IV Lasix and trend BMP
Continue carvedilol and hydralazine for afterload reduction
Follow-up tacrolimus level
Wean oxygen as possible
Assessment / Plan
Assessment / Plan
#Acute hypoxemic respiratory insufficiency
#Acute HFrEF -- LVEF 30%, suspicion for ischemic etiology
-Unclear etiology of heart failure, stress echo showed possible ischemic findings; cath deferred due to renal transplant
-GDMT: Carvedilol; no POLLY/ARB, MRA, SGLT2; therapy likely limited by renal function and transplant history
-Home loop diuretic regimen includes Lasix; no sequential nephron blockade or additional diuretics
-Was started on IV diuretics, has symptomatically improved though still wearing 5 L of O2 for comfort; I's and O's not accurate
-Home medications were changed to carvedilol for GDMT and hydralazine 3 times daily for afterload
-Was started on IV iron daily for iron saturation <20% context of CHF per ferric-HF trial
-Cardiology and nephrology following
Plan
-Continue with IV Lasix 40 mg twice daily for now
-Continue with carvedilol and hydralazine at current doses
-Monitor I's/O's, daily weights, daily BMP
-Wean O2 as able, SpO2 goal >90%
-Monitor on telemetry
#Hypervolemic hyponatremia -- Acute, improving
#Chronic hyponatremia -- Baseline 130, question if this is associated with renal transplant or medication
-Secondary to heart failure, hypervolemic state with pulmonary edema; chronic component with persistently low sodium levels
-Sodium was 124 on arrival, hypervolemic in the context of CHF; Improving with diuretics
-Continue with IV diuretics and BMP trending as above
#Status post renal transplant --at [facility], drafter apprentice is Dr. Ruiz
#H/O ESRD -- diabetic nephropathy
-Currently on immunosuppressive therapy with MMF, tacrolimus, and low-dose prednisone
-Baseline creatinine, per patient is near 3.5 but may be slightly lower; has been close to 3.0 here
-No signs or symptoms present for emergent dialysis, urine output is adequate
-Tacrolimus level pending
#Hypertension
-Primary, unclear if elevated blood pressure is related to his ESRD history, no other systemic findings known
-Home medications include labetalol, amlodipine; also on Lasix
-Blood pressure was moderately elevated in the ED, receiving IV diuretics now
-Plan to adjust BP meds if needed once euvolemic
#Type 2 diabetes mellitus -- insulin-dependent
-No recent A1c history; C/B neuropathy and potentially diabetic nephropathy
-Regimen includes insulin glargine, insulin aspart with meals, Tradjenta
-Tradjenta held on admission, transition to ISS with Accu-Cheks
-Will monitor Accu-Cheks, blood glucose goal 100-200 while hospitalized
#Normocytic anemia
-Chronic, previous iron studies were consistent with chronic disease state/CKD
-Hemoglobin baseline seems to run near 9.0, +/-0.5 or so; no signs of bleeding today
-Will monitor CBC while in the hospital
#Dyslipidemia
-No known history of ASCVD, high risk with previous ESRD state
-Home regimen includes moderate intensity statin and ezetimibe
#GERD
-Home medication includes daily PPI
-No known history of PE or erosive disease
-No red flag symptoms today, well-controlled
# Anxiety
-Stable on Lexapro
DVT prophylaxis: Heparin
Diet: Carb controlled, no added salt
CODE STATUS: Full code
Anticipated Discharge: 24 - 48 hours
Subjective/Interval History
-
Date of Service: January 21, 2024
Seen and examined at the bedside. No acute events. He states he feels better today, denies any significant shortness of breath. He does question what his tacrolimus level was. Tacrolimus level in chart is pending
He otherwise denies any chest pain, cough, wheeze, fevers or chills, gastrointestinal issues, urinary issues, abnormal bleeding or bruising, paresthesias or weakness.
Objective Data
-
Labs:
Laboratory Results
01/21/24
05:52
WBC 6.9
Hgb 9.1 L
Hct 26.2 L
Plt Count 154
Sodium 126 L
Potassium 3.6
Chloride 95 L
Carbon Dioxide 24
BUN 59 H
Creatinine 3.0 H
Glucose 184 H
Calcium 8.4
Vital Signs:
Vital Signs
Temp Pulse Resp BP Pulse Ox
99 F 76 16 153/86 94
01/21/24 07:05 01/21/24 07:05 01/21/24 07:05 01/21/24 09:13 01/21/24 07:05
I&O
01/20/24 01/21/24 01/22/24
06:59 06:59 06:59
Intake Total 960 / 960 480 / 480
Output Total 1000 / 1000 1025 / 1025
Balance -1000 / -1000 -65 / -65 480 / 480
Review of Systems
-
History Source: Patient
All other systems: Reviewed and negative
Physical Exam
-
General: No Apparent Distress and Comfortable; Negative Respiratory Distress
HEENT: Normocephalic, Atraumatic, Moist Mucous Membranes and Anicteric
Respiratory: Rales (Bases, improved) and Non Labored Respirations; Negative Wheezes or Rhonchi
Cardiac: Regular Rhythm, S1/S2 and JVD; Negative Murmur, Rub or Gallop
GI: Soft, Nontender, Nondistended and Normal Bowel Sounds
Musculoskeletal: No Clubbing, No Cyanosis and No Edema
Neuro: AO x 3, Nonfocal/Grossly Intact and Central Nerve's Intact
Data Reviewed
-
Labs: Labs Reviewed by me and Discussed with Patient
[2024-01-21 11:32] LABS: Glucose - Point of Care 213 mg/dl (70-99)
--- NOTE | 2024-01-21 11:45 | W.PN.NEPH.PH ---
Today's Communication / Plan
-
diurese
Assessment/Plan
-
Assessment:
Acute HFpEF
Renal transplant (02/18/20) [facility]-living unrelated
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
Hypertension with history of orthostasis
CKD4-last cr 3.02 at [facility] [place] visit -Dr Leon
met acidosis
Type 2 diabetes
Hypercholesterolemia
Depression
Anemia
Hyponatremia
Severe thickening of distal esophagus by imaging
Plan:
await tacrolimus level
Follow BMP
IV Lasix continues, increase to 80mg BID
Continue immunosuppressant therapy
standing weights
-
-
Date of Service: January 21, 2024
CC / HPI / ROS
-
Chief Complaint:
CKD4
History of Present Illness:
CKD/Cr stable at 3.0
K stable 3.6
Na remains low 126
good UOP with IV lasix for decompensated HF, but weights not different if not higher
Review of Systems:
no CP
remains on high supplemental O2
Labs
-
Labs:
WBC 6.9 10^3/uL (4.8-10.8) 01/21/24 05:52
RBC 3.02 10^6/uL (4.70-6.10) L 01/21/24 05:52
Hgb 9.1 g/dL (13.0-18.0) L 01/21/24 05:52
Hct 26.2 % (39.0-52.0) L 01/21/24 05:52
Plt Count 154 10^3/uL (130-400) 01/21/24 05:52
Sodium 126 mmol/L (135-145) L 01/21/24 05:52
Potassium 3.6 mmol/L (3.5-5.1) 01/21/24 05:52
Chloride 95 mmol/L (98-107) L 01/21/24 05:52
Carbon Dioxide 24 mmol/L (22-30) 01/21/24 05:52
BUN 59 mg/dl (9-20) H 01/21/24 05:52
Creatinine 3.0 mg/dL (0.7-1.3) H 01/21/24 05:52
eGFR 22.77 01/21/24 05:52
Glucose 184 mg/dl (70-99) H 01/21/24 05:52
Calcium 8.4 mg/dl (8.4-10.2) 01/21/24 05:52
Tcj-M-Eyhmaecrdqk Pept 31005 pg/ml 01/19/24 12:08
Albumin 3.9 g/dl (3.5-5.0) 01/19/24 12:08
Physical Exam
-
Vital Signs:
Vital Signs
Temp Pulse Resp BP Pulse Ox
98.8 F 76 16 145/79 96
01/21/24 11:00 01/21/24 11:00 01/21/24 11:00 01/21/24 11:00 01/21/24 11:00
Cardiovascular:: Regular rate and rhythm
Respiratory:: Bilateral: Coarse
Lung Excursion:: Normal
Abdomen:: Nontender and Soft
Bowel Sounds:: Normal
Extremity Edema:: None: Bilateral:
[2024-01-21] MEDS: FERRLECIT 110 MG IV (13:51)
[2024-01-21] MEDS: LANTUS 0.03 UNITS SC (13:51)
--- NOTE | 2024-01-21 15:48 | W.PN.CARDCBS ---
Today's Communication / Plan
-
Continue IV diuresis, appreciate nephrology input
Uptitrate hydralazine
Imdur added
Impression / Plan
-
Primary Stitch Welder: Dr. ISABEL Ruiz
Assessment:
Presentation with PALM
Acute on chronic HFpEF
Acute on chronic Hyponatremia
CKD IV
HTN
s/p living, unrelated renal transplant RLQ at [facility] 01/15/20
previously on PD
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
was not taking mycophenolate 2020 until 2022, he forgot
Chronic immunosuppressed state
Carotid artery disease s/p B/L carotid endarterectomy 2017
Type 2 diabetes
Diabetic nephropathy
Hypertension
Hypercholesterolemia
Depression
Anemia
Severe thickening of distal esophagus by imaging
Echo 07/31/2023: EF 54%, no regional wall motion abnormalities noted, mild MR
Lexiscan nuclear stress test 08/17/2023: medium size predominantly fixed RCA distribution defect with small predominantly reversible anterior apical and apical defects with EF 42%
Plan:
-Patient presented with dyspnea on exertion and evidence of acute CHF
-Responding to IV diuresis, would continue, appreciate nephrology input
-Cr stable around 3.0. Dry weight felt to be 175 pounds per patient.
-Wean supplemental oxygen as able
-Moderately reduced left ventricular ejection fraction 30-35% on transthoracic echo here which is a new finding
-Started hydralazine for afterload reduction, would uptitrate as blood pressure tolerates. Imdur added.
-Start Coreg in place of labetalol
-Stop Norvasc
-Would avoid POLLY/ARB/ARNI, Aldactone and SGLT2 given renal insufficiency
-Continue aspirin, pravastatin, zetia
Progress Note - Stitch Welder
Subjective
Date of Service: January 21, 2024
No acute overnight events. Patient tells me his breathing is comfortable however he is requiring approximately 4 L of supplemental oxygen via nasal cannula. No chest pain or pressure. Reports his abdomen is less distended.
Objective
Labs:
01/21/24 05:52
01/21/24 05:52
Labs
Hgb 9.1 g/dL (13.0-18.0) L 01/21/24 05:52
Hct 26.2 % (39.0-52.0) L 01/21/24 05:52
Plt Count 154 10^3/uL (130-400) 01/21/24 05:52
PT 15.8 Sec (11.4-14.6) H 01/19/24 12:08
INR 1.27 01/19/24 12:08
APTT 35.4 Sec (23.4-35.0) H 01/19/24 12:08
Sodium 126 mmol/L (135-145) L 01/21/24 05:52
Potassium 3.6 mmol/L (3.5-5.1) 01/21/24 05:52
BUN 59 mg/dl (9-20) H 01/21/24 05:52
Creatinine 3.0 mg/dL (0.7-1.3) H 01/21/24 05:52
Glucose 184 mg/dl (70-99) H 01/21/24 05:52
Troponins
01/19/24
12:08
Troponin I 0.016
Vital Signs and I&O:
Vital Signs
Temp Pulse Resp BP Pulse Ox
98.5 F 71 18 137/80 98
01/21/24 15:23 01/21/24 15:23 01/21/24 15:23 01/21/24 15:23 01/21/24 15:23
Vital Signs
Temp Pulse Resp BP Pulse Ox
98.5 F 71 18 137/80 98
01/21/24 15:23 01/21/24 15:23 01/21/24 15:23 01/21/24 15:23 01/21/24 15:23
Intake & Output
01/19/24 01/20/24 01/21/24 01/22/24
06:59 06:59 06:59 06:59
Intake Total 960 / 960 580 / 580
Output Total 1000 / 1000 1025 / 1025 900 / 900
Balance -1000 / -1000 -65 / -65 -320 / -320
Physical Exam
Physical Exam
Gen: NAD, AA
HEENT: NC/AT, sclera anicteric
Neck: No JVD
CV: RRR, NL s1/s2
Lungs: Scattered crackles on 4 L nasal cannula
Abd: S/mildly distended
Ext: No LE edema
Skin: Warm, dry
Neuro: Non-focal
[2024-01-21 16:31] LABS: Glucose - Point of Care 245 mg/dl (70-99)
[2024-01-21] MEDS: APRESOLINE 50 MG PO ×2 (16:42→21:26)
[2024-01-21] MEDS: FLUSH (NSS) 1 FLUSH IV (16:43)
[2024-01-21] MEDS: LASIX 80 MG IV (16:43)
[2024-01-21] MEDS: NEURONTIN 300 MG PO (21:26)
[2024-01-21] MEDS: PRAVACHOL 10 MG PO (21:26)
[2024-01-21 21:32] LABS: Glucose - Point of Care 292 mg/dl (70-99)
[2024-01-22] VITALS (9 sets, daily range): BP systolic 105–165; BP diastolic 72–92; PULSE 68; O2SAT 95; BMI 27.4
[2024-01-22] MEDS: HEPARIN 5000 UNITS SC ×4 (00:01→23:00)
[2024-01-22 03:25] LABS: Tacrolimus (Prograft - FK506) <2.0 ng/mL
[2024-01-22 07:02] LABS: Blood Urea Nitrogen 57 mg/dl (9-20); Calcium 8.8 mg/dl (8.4-10.2); Carbon Dioxide 22 mmol/L (22-30); Chloride 94 mmol/L (98-107); Estimated Creatinine Clearance 26 ml/min; Glucose 208 mg/dl (70-99); Magnesium 2.1 mg/dl (1.6-2.3); Potassium 3.8 mmol/L (3.5-5.1); Sodium 128 mmol/L (135-145); eGFR 23.72
[2024-01-22 07:32] LABS: % Basophils 1.1 % (0-2); % Eosinophils 6.7 % (0-6); % Immature Granulocytes 0.9 % (0-0.5); % Lymphocytes 10.2 % (20.5-51.1); % Monocytes 16.4 % (1.7-9.3); % Neutrophils 64.7 % (42.2-75.2); Absolute Basophils 0.1 10^3/uL (0-0.2); Absolute Eosinophils 0.3 10^3/uL (0-0.7); Absolute Lymphocytes 0.5 10^3/uL (1.2-3.4); Absolute Monocytes 0.7 10^3/uL (0.1-0.6); Absolute Neutrophils 2.9 10^3/uL (1.4-6.5); Hemoglobin 9.6 g/dL (13.0-18.0); Mean Corp Hgb Conc. 34.3 g/dL (33.0-37.0); Mean Corpuscular Hgb 30.5 pg (27.0-31.0); Mean Corpuscular Volume 88.9 fL (80.0-94.0); Mean Platelet Volume 9.9 fL (7.4-10.4); Nucleated Red Blood Cells % 0 % (-); Platelet Count 194 10^3/uL (130-400); Red Blood Cell Count 3.15 10^6/uL (4.70-6.10); Red Cell Dist. Width 12.3 % (11.5-14.5); White Blood Cell Count 4.5 10^3/uL (4.8-10.8)
[2024-01-22 07:54] LABS: Glucose - Point of Care 184 mg/dl (70-99)
[2024-01-22] MEDS: MYFORTIC DELAYED REL. 360 MG PO ×2 (08:11→20:47)
[2024-01-22] MEDS: SODIUM BICARBONATE 650 MG PO (08:12)
[2024-01-22] MEDS: DELTASONE 5 MG PO (08:12)
[2024-01-22] MEDS: APRESOLINE 50 MG PO ×3 (08:12→21:58)
[2024-01-22] MEDS: COREG 6.25 MG PO ×2 (08:12→20:47)
[2024-01-22] MEDS: LEXAPRO 10 MG PO (08:12)
[2024-01-22] MEDS: LOW STRENGTH ASPIRIN 81 MG PO (08:12)
[2024-01-22] MEDS: IMDUR (EXTENDED RELEASE) 30 MG PO (08:12)
[2024-01-22] MEDS: LASIX 80 MG IV ×2 (08:13→18:05)
[2024-01-22] MEDS: NOVOLOG FLEXPEN 2 UNITS SC (08:30)
[2024-01-22] MEDS: NOVOLOG FLEXPEN-MODERATE RESISTANCE 1 UNITS SC ×2 (08:31→18:09)
--- NOTE | 2024-01-22 10:13 | W.PN.CARDCBS ---
Addendum entered and electronically signed by Shima Vernon MD 01/22/24 11:23:
I saw and examined the patient.
The [employer] Technician's note was reviewed and I agree with the note.
Comment: Patient is feeling better overnight. He feels less bloated and volume overloaded. He is urinating well on increased dose of Lasix (nephrology).
He has heart failure with reduced ejection fraction. Guideline directed medical therapy is limited given renal insufficiency. Currently new to hydralazine/Imdur and carvedilol. Uptitrate as tolerates as an outpatient.
He is not an POLLY inhibitor/ARB/Arni candidate. He is not a candidate for Aldactone or SGLT2 inhibitors.
Continue diuresis and current treatment.
Reassess echocardiogram at the 3-month mike
Recent stress test 08/2023 was negative for ischemia.
Telemetry is stable.
Original Note:
Today's Communication / Plan
-
Continue IV diuresis
Continue Coreg, Imdur, hydralazine
Impression / Plan
-
Primary Pattern Worker: Dr. ISABEL Ruiz
Assessment:
Presentation with PALM
Acute on chronic HFpEF
Acute on chronic Hyponatremia
CKD IV
HTN
s/p living, unrelated renal transplant RLQ at [facility] 01/15/20
previously on PD
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
was not taking mycophenolate 2020 until 2022, he forgot
Chronic immunosuppressed state
Carotid artery disease s/p B/L carotid endarterectomy 2017
Type 2 diabetes
Diabetic nephropathy
Hypertension
Hypercholesterolemia
Depression
Anemia
Severe thickening of distal esophagus by imaging
Lexiscan nuclear stress test 08/17/2023: medium size predominantly fixed RCA distribution defect with small predominantly reversible anterior apical and apical defects with EF 42%
Echo 07/31/2023: EF 54%, no regional wall motion abnormalities noted, mild MR
Echo 01/19/2024: EF 30 to 35%, global hypokinesis with regional variability, stage II diastolic dysfunction, moderate TR, estimated PAP 48 mmHg
Plan:
-Patient presented with dyspnea on exertion and evidence of acute CHF.
-Diuresing with IV Lasix, managed by nephrology given CKD with h/o renal transplant.
-IV Lasix dose increased 01/21/2024 to 80 mg BID
-Overall, weight has been stable at approximately 185 lbs. Dry weight felt to be 175 pounds per patient.
-Continue daily weights, I&O's.
-Creatinine 2.9 01/21. Continue to follow with diuresis.
-Symptomatically improving despite weight being relatively flat. Wean supplemental O2 as able.
-EF newly reduced at 30 to 35% by echo 01/19/2024.
-Continue Imdur 30mg daily and hydralazine 50mg TID. Labetalol transitioned to carvedilol 6.25mg BID.
-No POLLY/ARB/ARNI, Aldactone, or SGLT2 inhibitor given renal function
-Continue aspirin, pravastatin, and Zetia.
-K 3.8. Replete with ongoing diuresis.
Progress Note - Pattern Worker
Subjective
Date of Service: January 22, 2024
Feeling better today. No SOB.
Objective
Labs:
01/22/24 04:17
01/22/24 04:17
Labs
Hgb 9.6 g/dL (13.0-18.0) L 01/22/24 04:17
Hct 28.0 % (39.0-52.0) L 01/22/24 04:17
Plt Count 194 10^3/uL (130-400) D 01/22/24 04:17
PT 15.8 Sec (11.4-14.6) H 01/19/24 12:08
INR 1.27 01/19/24 12:08
APTT 35.4 Sec (23.4-35.0) H 01/19/24 12:08
Sodium 128 mmol/L (135-145) L 01/22/24 04:17
Potassium 3.8 mmol/L (3.5-5.1) 01/22/24 04:17
BUN 57 mg/dl (9-20) H 01/22/24 04:17
Creatinine 2.9 mg/dL (0.7-1.3) H 01/22/24 04:17
Glucose 208 mg/dl (70-99) H 01/22/24 04:17
Troponins
01/19/24
12:08
Troponin I 0.016
Vital Signs and I&O:
Vital Signs
Temp Pulse Resp BP Pulse Ox
98 F 74 18 147/80 97
01/22/24 07:19 01/22/24 08:12 01/22/24 07:19 01/22/24 08:12 01/22/24 07:19
Vital Signs
Temp Pulse Resp BP Pulse Ox
98 F 74 18 147/80 97
01/22/24 07:19 01/22/24 08:12 01/22/24 07:19 01/22/24 08:12 01/22/24 07:19
Intake & Output
01/20/24 01/21/24 01/22/24 01/23/24
06:59 06:59 06:59 06:59
Intake Total 960 / 960 1000 / 1000
Output Total 1000 / 1000 1025 / 1025 2130 / 2130
Balance -1000 / -1000 -65 / -65 -1130 / -1130
Physical Exam
Physical Exam
GEN: No distress, awake, alert, oriented x3
HEENT: supple, anicteric, mmm
LUNGS: CTA b/l, no wheezes/rales
CV: Reg, S1/S2, no murmur
EXT: No clubbing, cyanosis, or edema
NEURO: Gross non-focal
SKIN: Warm, dry, no rash
[2024-01-22 11:58] LABS: Glucose - Point of Care 251 mg/dl (70-99)
--- NOTE | 2024-01-22 13:01 | W.PN.HOSP.TC ---
Today's Communication/Plan
-
Monitor vital signs see plan
Continue with diuresis
Monitor renal function
Titrate insulin
PT/OT
Wean oxygen as tolerated
Home O2 evaluation prior to discharge
Assessment / Plan
Assessment / Plan
#Acute hypoxemic respiratory failure secondary to congestive heart failure
#Acute HFrEF -- LVEF 30%, suspicion for ischemic etiology
-Unclear etiology of heart failure, stress echo showed possible ischemic findings; cath deferred due to renal transplant
-GDMT: Carvedilol; no POLLY/ARB, MRA, SGLT2; therapy likely limited by renal function and transplant history
Continue with IV diuresis, wean oxygen as tolerated
-Was started on IV diuretics
-Home medications were changed to carvedilol for GDMT and hydralazine 3 times daily for afterload
-Was started on IV iron daily for iron saturation <20% context of CHF per ferric-HF trial
-Cardiology and nephrology following
Plan
Continue with IV Lasix
-Continue with carvedilol and hydralazine at current doses
-Monitor I's/O's, daily weights, daily BMP
-Wean O2 as able, home O2 evaluation prior to discharge
-Monitor on telemetry
#Hypervolemic hyponatremia -- Acute, improving
#Chronic hyponatremia -- Baseline 130, question if this is associated with renal transplant or medication
-Secondary to heart failure, hypervolemic state with pulmonary edema; chronic component with persistently low sodium levels
Monitor with diuresis
#Status post renal transplant --at [facility], model making supervisor is Dr. Ruiz
#H/O ESRD -- diabetic nephropathy
-Currently on immunosuppressive therapy with MMF, tacrolimus, and low-dose prednisone
-Baseline creatinine, per patient is near 3.5 but may be slightly lower; has been close to 3.0 here
-No signs or symptoms present for emergent dialysis, urine output is adequate
-Tacrolimus level <2
#Hypertension
-Primary, unclear if elevated blood pressure is related to his ESRD history, no other systemic findings known
-Home medications include labetalol, amlodipine; also on Lasix
-Plan to adjust BP meds if needed once euvolemic
#Type 2 diabetes mellitus -- insulin-dependent
-No recent A1c history; C/B neuropathy and potentially diabetic nephropathy
-Regimen includes insulin glargine, insulin aspart with meals, Tradjenta
-Tradjenta held on admission, transition to ISS with Accu-Cheks
#Normocytic anemia
-Chronic, previous iron studies were consistent with chronic disease state/CKD
-Hemoglobin baseline seems to run near 9.0, +/-0.5 or so; no signs of bleeding today
-Will monitor CBC while in the hospital
#Dyslipidemia
-No known history of ASCVD, high risk with previous ESRD state
-Home regimen includes moderate intensity statin and ezetimibe
#GERD
-Home medication includes daily PPI
-No known history of PE or erosive disease
-No red flag symptoms today, well-controlled
# Anxiety
-Stable on Lexapro
DVT prophylaxis: Heparin
CODE STATUS: Full code
General: No Apparent Distress and Comfortable; Negative Respiratory Distress
HEENT: Normocephalic, Atraumatic, Moist Mucous Membranes and Anicteric
Respiratory: Rales (Bases, improved) and Non Labored Respirations; Negative Wheezes or Rhonchi
Cardiac: Regular Rhythm, S1/S2 and JVD; Negative Murmur, Rub or Gallop
GI: Soft, Nontender, Nondistended and Normal Bowel Sounds
Musculoskeletal: No Clubbing, No Cyanosis and No Edema
Neuro: AO x 3, Nonfocal/Grossly Intact and Central Nerve's Intact
I spent a total of 52 minutes with the patient or on the floor. More than 50% of this time involved counseling and coordination of care.
Anticipated Discharge: 24 - 48 hours
Subjective/Interval History
-
Date of Service: January 22, 2024
Denies pain
Objective Data
-
Labs:
Laboratory Results
01/22/24
04:17
WBC 4.5 L
Hgb 9.6 L
Hct 28.0 L
Plt Count 194 D
Sodium 128 L
Potassium 3.8
Chloride 94 L
Carbon Dioxide 22
BUN 57 H
Creatinine 2.9 H
Glucose 208 H
Calcium 8.8
Vital Signs:
Vital Signs
Temp Pulse Resp BP Pulse Ox
97.6 F 93 20 105/72 97
01/22/24 12:40 01/22/24 12:40 01/22/24 12:40 01/22/24 12:40 01/22/24 12:40
I&O
01/21/24 01/22/24 01/23/24
06:59 06:59 06:59
Intake Total 960 / 960 1000 / 1000
Output Total 1025 / 1025 2130 / 2130
Balance -65 / -65 -1130 / -1130
[2024-01-22] MEDS: NOVOLOG FLEXPEN-MODERATE RESISTANCE 5 UNITS SC (13:36)
[2024-01-22] MEDS: KCL 20 MEQ PO (13:36)
[2024-01-22] MEDS: LANTUS 0.05 UNITS SC (13:38)
[2024-01-22] MEDS: NOVOLOG FLEXPEN SC (14:26)
[2024-01-22] MEDS: LANTUS SC (14:26)
[2024-01-22] MEDS: FERRLECIT 110 MG IV (14:52)
--- NOTE | 2024-01-22 15:41 | W.PN.NEPH.PH ---
Today's Communication / Plan
-
follow labs with current dose of lasix
Assessment/Plan
-
Assessment:
Acute HFpEF
Renal transplant (02/18/20) [place]-living unrelated
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
Hypertension with history of orthostasis
CKD4-last cr 3.02 at [place] visit -Dr Leon
met acidosis
Type 2 diabetes
Hypercholesterolemia
Depression
Anemia
Hyponatremia
Severe thickening of distal esophagus by imaging
Plan:
Janel in setting of CHF
cr slow improvement to 2.9
wt no sig change but over all he is feeling better, off O2
would cont lasix 80mg Iv BID for now
IS-on MMF, prednisone,Tac level<2 he is off Envarsus for sometime now and supposed to be on monthly injections at [place]
He reports last seen Dr Leon over 6months ago
I am concerned about his compliance in f/u
hyponatremia from hypervolemia improving with diuresis
met acidosis stable on po bicarb
anemia -fe def on IV Fe course
labs in am
d/w pt and nursing
-
-
Date of Service: January 22, 2024
CC / HPI / ROS
-
Chief Complaint:
CKD4
History of Present Illness:
CKD/Cr stable at 2.9
K stable 3.8
Na better at 128
good UOP with IV lasix for decompensated HF, but weights not different if not higher, net neg balance
Review of Systems:
no CP
remains on high supplemental O2
Labs
-
Labs:
WBC 4.5 10^3/uL (4.8-10.8) L 01/22/24 04:17
RBC 3.15 10^6/uL (4.70-6.10) L 01/22/24 04:17
Hgb 9.6 g/dL (13.0-18.0) L 01/22/24 04:17
Hct 28.0 % (39.0-52.0) L 01/22/24 04:17
Plt Count 194 10^3/uL (130-400) D 01/22/24 04:17
Sodium 128 mmol/L (135-145) L 01/22/24 04:17
Potassium 3.8 mmol/L (3.5-5.1) 01/22/24 04:17
Chloride 94 mmol/L (98-107) L 01/22/24 04:17
Carbon Dioxide 22 mmol/L (22-30) 01/22/24 04:17
BUN 57 mg/dl (9-20) H 01/22/24 04:17
Creatinine 2.9 mg/dL (0.7-1.3) H 01/22/24 04:17
eGFR 23.72 01/22/24 04:17
Glucose 208 mg/dl (70-99) H 01/22/24 04:17
Calcium 8.8 mg/dl (8.4-10.2) 01/22/24 04:17
Wbc-D-Nlvlpdpqnns Pept 27113 pg/ml 01/19/24 12:08
Albumin 3.9 g/dl (3.5-5.0) 01/19/24 12:08
Physical Exam
-
Vital Signs:
Vital Signs
Temp Pulse Resp BP Pulse Ox
97.4 F 71 20 147/87 96
01/22/24 15:31 01/22/24 15:31 01/22/24 15:31 01/22/24 15:31 01/22/24 15:31
Cardiovascular:: Regular rate and rhythm
Respiratory:: Bilateral: CTA (decreased)
Lung Excursion:: Normal
Abdomen:: Nontender and Soft
Extremity Edema:: None: Bilateral:
Oreilly Catheter: No
[2024-01-22 16:22] LABS: Glucose - Point of Care 168 mg/dl (70-99)
[2024-01-22] MEDS: NOVOLOG FLEXPEN 3 UNITS SC (18:10)
[2024-01-22 21:04] LABS: Glucose - Point of Care 202 mg/dl (70-99)
[2024-01-22] MEDS: NEURONTIN 300 MG PO (21:59)
[2024-01-22] MEDS: PRAVACHOL 10 MG PO (21:59)
[2024-01-23 03:39] VITALS: BP 158/83
[2024-01-23 06:33] LABS: % Basophils 1.6 % (0-2); % Eosinophils 6.5 % (0-6); % Immature Granulocytes 0.7 % (0-0.5); % Lymphocytes 10.2 % (20.5-51.1); Absolute Basophils 0.1 10^3/uL (0-0.2); Absolute Eosinophils 0.3 10^3/uL (0-0.7); Absolute Lymphocytes 0.5 10^3/uL (1.2-3.4); Absolute Monocytes 0.9 10^3/uL (0.1-0.6); Absolute Neutrophils 2.7 10^3/uL (1.4-6.5); Hematocrit 27.8 % (39.0-52.0); Hemoglobin 9.4 g/dL (13.0-18.0); Mean Corp Hgb Conc. 33.8 g/dL (33.0-37.0); Mean Corpuscular Hgb 30.3 pg (27.0-31.0); Mean Corpuscular Volume 89.7 fL (80.0-94.0); Mean Platelet Volume 9.6 fL (7.4-10.4); Nucleated Red Blood Cells % 0 % (-); Platelet Count 207 10^3/uL (130-400); Red Cell Dist. Width 12.3 % (11.5-14.5); White Blood Cell Count 4.5 10^3/uL (4.8-10.8)
[2024-01-23 06:53] LABS: Glucose - Point of Care 180 mg/dl (70-99)
[2024-01-23 06:58] LABS: Blood Urea Nitrogen 61 mg/dl (9-20); Calcium 9.2 mg/dl (8.4-10.2); Carbon Dioxide 21 mmol/L (22-30); Chloride 97 mmol/L (98-107); Estimated Creatinine Clearance 26 ml/min; Glucose 157 mg/dl (70-99); Potassium 3.8 mmol/L (3.5-5.1); Sodium 130 mmol/L (135-145); eGFR 23.72
[2024-01-23 07:35] VITALS: BP 166/91
[2024-01-23 08:00] VITALS: BMI 26.6
[2024-01-23] MEDS: DELTASONE 5 MG PO (08:45)
[2024-01-23] MEDS: IMDUR (EXTENDED RELEASE) 30 MG PO (08:45)
[2024-01-23] MEDS: APRESOLINE 50 MG PO (08:45)
[2024-01-23] MEDS: LOW STRENGTH ASPIRIN 81 MG PO (08:45)
[2024-01-23] MEDS: MYFORTIC DELAYED REL. 360 MG PO (08:45)
[2024-01-23] MEDS: LASIX 80 MG IV (08:46)
[2024-01-23] MEDS: LEXAPRO 10 MG PO (08:46)
[2024-01-23] MEDS: COREG 6.25 MG PO (08:46)
[2024-01-23] MEDS: SODIUM BICARBONATE 650 MG PO (08:46)
[2024-01-23] MEDS: HEPARIN 5000 UNITS SC (08:46)
[2024-01-23] MEDS: NOVOLOG FLEXPEN-MODERATE RESISTANCE 1 UNITS SC (08:47)
[2024-01-23] MEDS: NOVOLOG FLEXPEN 3 UNITS SC ×2 (08:48→13:52)
--- NOTE | 2024-01-23 11:09 | W.PN.CARDCBS ---
Addendum entered and electronically signed by Bryce Giraldo MD 01/23/24 11:51:
I saw and examined the patient.
The [employer]'s note was reviewed and I agree with the note.
Comment: Briefly, 63-year-old man past medical history of end-stage renal disease with prior kidney transplant presenting in acute decompensated heart failure
Volume status is significantly improved with IV diuresis, has been weaned off supplemental oxygen
Plan to transition to oral diuretics
Transthoracic echocardiogram shows newly reduced LV ejection fraction
Hydralazine/nitrate added this hospitalization
Labetalol stopped in favor of carvedilol
Unable to initiate POLLY/ARB/ARNI, SGLT2 or MRNA due to CKD 4
Stable cardiac status, we will sign off, please recall as needed
Outpatient follow-up arranged
Original Note:
Today's Communication / Plan
-
Increase hydralazine to 100 mg twice daily
Consider up titration of carvedilol if blood pressure allows as follow-up as outpatient
Replete potassium
Continue diuresis per recommendations of nephrology
Will need BMP 1 week after discharge
Discharge home with visiting nurses
Outpatient cardiology follow-up has arranged
Impression / Plan
-
Primary Room Clerk: Dr. ISABEL Ruiz
Assessment:
Presentation with PALM
Acute on chronic HFpEF
Acute on chronic Hyponatremia
CKD IV
HTN
s/p living, unrelated renal transplant RLQ at [facility] 01/15/20
previously on PD
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
was not taking mycophenolate 2020 until 2022, he forgot
Chronic immunosuppressed state
Carotid artery disease s/p B/L carotid endarterectomy 2017
Type 2 diabetes
Diabetic nephropathy
Hypertension
Hypercholesterolemia
Depression
Anemia
Severe thickening of distal esophagus by imaging
Lexiscan nuclear stress test 08/17/2023: medium size predominantly fixed RCA distribution defect with small predominantly reversible anterior apical and apical defects with EF 42%
Echo 07/31/2023: EF 54%, no regional wall motion abnormalities noted, mild MR
Echo 01/19/2024: EF 30 to 35%, global hypokinesis with regional variability, stage II diastolic dysfunction, moderate TR, estimated PAP 48 mmHg
Plan:
-Patient presented 01/19/2024 with dyspnea on exertion and evidence of acute CHF.
-Diuresing with IV Lasix, managed by nephrology given CKD with h/o renal transplant.
-IV Lasix dose increased 01/21/2024 to 80 mg BID, weight down 7 lbs since admission and 5 lbs overnight.
-Await recommendations from nephrology regarding discharge dosing of diuretics. Patient will need basic metabolic panel in 1 week.
-
-Current weight 180 lbs. Dry weight felt to be 175 pounds per patient.
-Continue daily weights, I&O's.
-Creatinine 2.9 01/22. Continue to follow with diuresis.
-Symptomatically improving despite weight being relatively flat. Now off oxygen
-EF newly reduced at 30 to 35% by echo 01/19/2024.
-Continue Imdur 30mg daily. Will increase hydralazine to 100 mg BID. Labetalol transitioned to carvedilol 6.25mg BID. Would consider increasing Coreg to 12.5 mg BID as outpatient in HR/BP allow in an effort to achieve optimal GDMT. Keep off
Amlodipine
-No POLLY/ARB/ARNI, Aldactone, or SGLT2 inhibitor given renal function
-Continue aspirin, pravastatin, and Zetia.
-K 3.8. Replete with ongoing diuresis. Give 20 meq
Given multiple changes in medications with newly reduced ejection fraction patient now agreeable to go home with [facility]. Outpatient cardiology follow-up has been arranged
Discussed with primary care service, nursing
Progress Note - Room Clerk
Subjective
Date of Service: January 23, 2024
Patient seen and examined. Patient reports he is feeling significantly better with improved abdominal bloating and shortness of breath.
Objective
Labs:
01/23/24 04:56
01/23/24 04:56
Labs
Hgb 9.4 g/dL (13.0-18.0) L 01/23/24 04:56
Hct 27.8 % (39.0-52.0) L 01/23/24 04:56
Plt Count 207 10^3/uL (130-400) 01/23/24 04:56
PT 15.8 Sec (11.4-14.6) H 01/19/24 12:08
INR 1.27 01/19/24 12:08
APTT 35.4 Sec (23.4-35.0) H 01/19/24 12:08
Sodium 130 mmol/L (135-145) L 01/23/24 04:56
Potassium 3.8 mmol/L (3.5-5.1) 01/23/24 04:56
BUN 61 mg/dl (9-20) H 01/23/24 04:56
Creatinine 2.9 mg/dL (0.7-1.3) H 01/23/24 04:56
Glucose 157 mg/dl (70-99) H 01/23/24 04:56
Vital Signs and I&O:
Vital Signs
Temp Pulse Resp BP Pulse Ox
98.0 F 75 18 166/91 95
01/23/24 07:35 01/23/24 08:45 01/23/24 07:35 01/23/24 08:45 01/23/24 07:35
Vital Signs
Temp Pulse Resp BP Pulse Ox
98.0 F 75 18 166/91 95
01/23/24 07:35 01/23/24 08:45 01/23/24 07:35 01/23/24 08:45 01/23/24 07:35
Intake & Output
01/21/24 01/22/24 01/23/2401/23/24
06:59 06:59 06:59 06:59
Intake Total 960 / 960 1000 / 1000 1300 / 1300
Output Total 1025 / 1025 2130 / 2130 4450 / 4450
Balance -65 / -65 -1130 / -1130 -3150 / -3150
Physical Exam
Physical Exam
GEN: No distress, awake, Ox3
HEENT: supple, anicteric, mmm
LUNGS: CTA, no wheezes/rales
CV: Reg, S1/S2, 1/6 syst LSB, no murmur
ABD: soft, BS+, NT/ND
EXT: No edema, clubbing or cyanosis
NEURO: Gross non-focal
SKIN: No rash, warm, dry, pink
[2024-01-23 11:32] VITALS: BP 151/82
--- NOTE | 2024-01-23 11:32 | CM ---
CM contacted by NIC Carrillo regarding home care services for Mr. Tena to support him with CHF and medication teaching. Mr. Tena is agreeable to [facility] services at discharge. CM covering this case notified of same.
[2024-01-23 11:50] LABS: Glucose - Point of Care 237 mg/dl (70-99)
--- NOTE | 2024-01-23 12:30 | W.PN.HOSP.TC ---
Addendum entered and electronically signed by Kofi Hernández MD 01/23/24 14:02:
Discussed with nephrology. Okay to transition Lasix to 80 mg p.o. twice daily
Discharge today
Time of discharge 38 minutes
Original Note:
Today's Communication/Plan
-
Monitor vital signs see plan
Diuresis per nephrology, if transition to p.o. today then likely can be discharged
Cardiology following
Assessment / Plan
Assessment / Plan
#Acute hypoxemic respiratory failure secondary to congestive heart failure
#Acute HFrEF -- LVEF 30%, suspicion for ischemic etiology
-Unclear etiology of heart failure, stress echo showed possible ischemic findings; cath deferred due to renal transplant
-GDMT: Carvedilol; no POLLY/ARB, MRA, SGLT2; therapy likely limited by renal function and transplant history
Continue with IV diuresis, wean oxygen as tolerated; weaned off o2
-Was started on IV diuretics
-Home medications were changed to carvedilol for GDMT and hydralazine 3 times daily for afterload
-Was started on IV iron daily for iron saturation <20% context of CHF per ferric-HF trial
-Cardiology and nephrology following
Plan
Continue with IV Lasix per nephrology
-Continue with carvedilol and hydralazine at current doses
-Monitor I's/O's, daily weights, daily BMP
-Wean O2 as able, home O2 evaluation prior to discharge
-Monitor on telemetry
#Hypervolemic hyponatremia -- Acute, improving
#Chronic hyponatremia -- Baseline 130, question if this is associated with renal transplant or medication
-Secondary to heart failure, hypervolemic state with pulmonary edema; chronic component with persistently low sodium levels
Monitor with diuresis
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 Ruiz
#H/O ESRD -- diabetic nephropathy
-Currently on immunosuppressive therapy with MMF, tacrolimus, and low-dose prednisone
-Baseline creatinine, per patient is near 3.5 but may be slightly lower; has been close to 3.0 here
-No signs or symptoms present for emergent dialysis, urine output is adequate
-Tacrolimus level <2
#Hypertension
-Primary, unclear if elevated blood pressure is related to his ESRD history, no other systemic findings known
-Home medications include labetalol, amlodipine; also on Lasix
-Plan to adjust BP meds if needed once euvolemic
#Type 2 diabetes mellitus -- insulin-dependent
-No recent A1c history; C/B neuropathy and potentially diabetic nephropathy
-Regimen includes insulin glargine, insulin aspart with meals, Tradjenta
-Tradjenta held on admission, transition to ISS with Accu-Cheks
#Normocytic anemia
-Chronic, previous iron studies were consistent with chronic disease state/CKD
-Hemoglobin baseline seems to run near 9.0, +/-0.5 or so; no signs of bleeding today
-Will monitor CBC while in the hospital
#Dyslipidemia
-No known history of ASCVD, high risk with previous ESRD state
-Home regimen includes moderate intensity statin and ezetimibe
#GERD
-Home medication includes daily PPI
-No known history of PE or erosive disease
-No red flag symptoms today, well-controlled
# Anxiety
-Stable on Lexapro
DVT prophylaxis: Heparin
CODE STATUS: Full code
General: No Apparent Distress and Comfortable; Negative Respiratory Distress
HEENT: Normocephalic, Atraumatic, Moist Mucous Membranes and Anicteric
Respiratory: Rales (Bases, improved) and Non Labored Respirations; Negative Wheezes or Rhonchi
Cardiac: Regular Rhythm, S1/S2 and JVD; Negative Murmur
GI: Soft, Nontender, Nondistended and Normal Bowel Sounds
Musculoskeletal: No Clubbing, No Cyanosis and No Edema
Neuro: AO x 3, Nonfocal/Grossly Intact and Central Nerve's Intact
Anticipated Discharge: Today
Subjective/Interval History
-
Date of Service: January 23, 2024
denies pain
Objective Data
-
Labs:
Laboratory Results
01/23/24
04:56
WBC 4.5 L
Hgb 9.4 L
Hct 27.8 L
Plt Count 207
Sodium 130 L
Potassium 3.8
Chloride 97 L
Carbon Dioxide 21 L
BUN 61 H
Creatinine 2.9 H
Glucose 157 H
Calcium 9.2
Vital Signs:
Vital Signs
Temp Pulse Resp BP Pulse Ox
98.0 F 66 18 151/82 95
01/23/24 07:35 01/23/24 11:32 01/23/24 11:32 01/23/24 11:32 01/23/24 11:32
I&O
01/22/24 01/23/24 01/24/24
06:59 06:59 06:59
Intake Total 1000 / 1000 1300 / 1300
Output Total 2130 / 2130 4450 / 4450
Balance -1130 / -1130 -3150 / -3150
--- NOTE | 2024-01-23 13:03 | VNURNOTE ---
Home Health Liaison met with patient at bedside to discuss [facility] nurse visits, schedule and homebound status. Patient is agreeable and understands that visits at home will be 1-3 x per week to assess and teach medical management. Patient confirms he
has a scale at home, knows to weigh himself daily and log weights. HF packet at bedside. Patient planning on returning to work in 2 weeks, aware that services to end prior to working again. [facility] brochure provided with contact information. Patient
is aware that [facility] will contact them for start of care in 1-2 days after discharge from . [facility] referral completed in [facility].
[2024-01-23] MEDS: LANTUS 0.05 UNITS SC (13:47)
[2024-01-23] MEDS: KCL 20 MEQ PO (13:47)
[2024-01-23] MEDS: NOVOLOG FLEXPEN-MODERATE RESISTANCE 3 UNITS SC (13:48)
--- NOTE | 2024-01-23 14:01 | W.DCSUMMARY ---
Discharge Summary
Discharge Data
Date of Admission: 01/19/24
Date of Discharge: 01/23/24
-
Pending Results: No
Hospital Course
63-year-old male with past medical history of CHF, renal transplant, hypertension, type 2 diabetes mellitus, anemia, hyperlipidemia, GERD, anxiety, CKD came to the hospital with acute hypoxemic respiratory failure secondary to congestive heart
failure exacerbation. Patient echocardiogram showed reduced EF of 30%. Patient was seen by cardiology no ischemic evaluation was able to be done due to renal function and his transplant history. Cardiology instructed patient to follow-up with
them closely outpatient. Patient also had multiple medication changes for his cardiac meds on this hospitalization. He initially required oxygenation however was able to be weaned off oxygen prior to discharge. For his CHF exacerbation he was
started on IV Lasix and was followed up by nephrology here. He continued to diurese well with Lasix throughout hospitalization. For his renal transplant he was instructed to follow-up with his transplant nephrology outpatient. Once his symptoms
continue to improve, he was then discharged home with instructions to follow-up with all his physicians outpatient.
Discharge Plan
-
Patient Disposition: Home (Routine Discharge)
Discharge Diagnosis/Procedures: Acute hypoxemic respiratory failure secondary to congestive heart failure exacerbation
Acute on chronic congestive heart failure now with reduced EF
Acute on chronic hyponatremia
CKD stage IV
History of renal transplant
Diet: As tolerated
Additional Diets: 4 g sodium
Activity: As tolerated
Driving Restrictions: As prior to admission
Bathing Restrictions: None
Blood Work: BMP in 1 week
Activity Restrictions/Additional Instructions:
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
Instructions: *[facility] Heart Failure Instructions
Referrals:
Omar Mauricio MD [Family Provider] - in less than 1 week
Jacky Ruiz MD [Active] - 02/15/24 7:40 am (You have cardiology follow up with Dr. ISABEL Riuz on February 14 at 7:40 AM in [facility] [facility] [address] [facility]. If you are unable to make this appointment please call [phone] to reschedule)
Prescriptions:
New
carvedilol 6.25 mg Tablet
6.25 mg PO BID Qty: 60 0RF
isosorbide mononitrate 30 mg Tablet Extended Release 24 Hr
30 mg PO DAILY Qty: 30 0RF
sodium bicarbonate 650 mg Tablet
650 mg PO DAILY Qty: 0 0RF
hydralazine 50 mg Tablet
100 mg PO BID 30 Days Qty: 120 0RF
Continued
Tradjenta 5 MG tablet
5 mg PO DAILY
gabapentin 300 MG capsule
300 mg PO HS
aspirin 81 MG tablet,chewable
81 mg PO DAILY
prednisone 5 mg Tablet
5 mg PO DAILY
acetaminophen [Tylenol Extra Strength] 500 mg Tablet
1,000 mg PO BIDPRN PRN (Reason: mild pain)
pravastatin 10 mg Tablet
10 mg PO HS
escitalopram oxalate [Lexapro] 10 mg Tablet
10 mg PO DAILY
mycophenolate sodium 180 mg tablet,delayed release (DR/EC)
360 mg PO BID
pantoprazole 40 mg Tablet,Delayed Release (Dr/Ec)
40 mg PO DAILY
ezetimibe 10 mg Tablet
10 mg PO DAILY
mirabegron 50 mg Tablet Extended Release 24 Hr
50 mg PO DAILY
Codeine Syrup liquid
2 tbsp PO HSPRN PRN (Reason: sleep)
Changed
insulin aspart U-100 [Novolog FlexPen U-100 Insulin] 300 UNITS/3 ML insulin pen
3 unit SC MEALS Qty: 0 0RF
insulin glargine [Lantus Solostar U-100 Insulin] 300 UNITS/3 ML insulin pen
5 unit SC DAILY@1200 Qty: 0 0RF
furosemide 80 mg Tablet
80 mg PO BID Qty: 60 0RF
Discontinued
amlodipine [Norvasc] 10 mg Tablet
10 mg PO DAILY
labetalol 200 mg tablet
200 mg PO BID
Discharge Orders:
Discharge Patient (As Directed); Ordered 01/23/24
Ordered By: Kofi Hernández
Discharge Date and Time
Discharge Date/Time: 01/23/24 15:59
Print Language: SAMI
--- NOTE | 2024-01-23 14:57 | CM ---
entered order for discharge.
IMM reviewed Pt agrees with discharge to home today with [facility] .
[facility] accepted pt.PCP DR Mauricio .
Daniella pts will drive him home.
Pt weaned to room air.
PLAN Home with [facility]
--- NOTE | 2024-01-23 15:09 | W.PN.NEPH.PH ---
Today's Communication / Plan
-
ok for d/c
Assessment/Plan
-
Assessment:
Acute HFpEF
Renal transplant (02/18/20) [facility]-living unrelated
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
Hypertension with history of orthostasis
CKD4-last cr 3.02 at [facility] visit -Dr Leon
met acidosis
Type 2 diabetes
Hypercholesterolemia
Depression
Anemia
Hyponatremia
Severe thickening of distal esophagus by imaging
Plan:
Janel in setting of CHF
cr stable at 2.9
wt improving, good response to lasix
would cont lasix 80mg PO BID at d/c
IS-on MMF, prednisone,Tac level<2 he is off Envarsus for sometime now and on monthly injections at [facility]
He reports scheduling f/u Dr Leon soon
hyponatremia from hypervolemia improving with diuresis
met acidosis stable on po bicarb
anemia -fe def on IV Fe course
ok for d/c
d/w primary and pt
BMP in 1week with nephro f/u at [facility]
-
-
Date of Service: January 23, 2024
CC / HPI / ROS
-
Chief Complaint:
CKD4
History of Present Illness:
CKD/Cr stable at 2.9
K stable 3.8
Na better at 130
good UOP with IV lasix for decompensated HF, wt decreasing
Review of Systems:
no CP
off O2 and ambulating
Labs
-
Labs:
WBC 4.5 10^3/uL (4.8-10.8) L 01/23/24 04:56
RBC 3.10 10^6/uL (4.70-6.10) L 01/23/24 04:56
Hgb 9.4 g/dL (13.0-18.0) L 01/23/24 04:56
Hct 27.8 % (39.0-52.0) L 01/23/24 04:56
Plt Count 207 10^3/uL (130-400) 01/23/24 04:56
Sodium 130 mmol/L (135-145) L 01/23/24 04:56
Potassium 3.8 mmol/L (3.5-5.1) 01/23/24 04:56
Chloride 97 mmol/L (98-107) L 01/23/24 04:56
Carbon Dioxide 21 mmol/L (22-30) L 01/23/24 04:56
BUN 61 mg/dl (9-20) H 01/23/24 04:56
Creatinine 2.9 mg/dL (0.7-1.3) H 01/23/24 04:56
eGFR 23.72 01/23/24 04:56
Glucose 157 mg/dl (70-99) H 01/23/24 04:56
Calcium 9.2 mg/dl (8.4-10.2) 01/23/24 04:56
Mtn-X-Iatgavpcrtj Pept 84777 pg/ml 01/19/24 12:08
Albumin 3.9 g/dl (3.5-5.0) 01/19/24 12:08
Physical Exam
-
Vital Signs:
Vital Signs
Temp Pulse Resp BP Pulse Ox
98.0 F 66 18 151/82 95
01/23/24 07:35 01/23/24 11:32 01/23/24 11:32 01/23/24 11:32 01/23/24 11:32
Cardiovascular:: Regular rate and rhythm
Respiratory:: Bilateral: CTA
Lung Excursion:: Normal
Abdomen:: Nontender and Soft
Extremity Edema:: None: Bilateral:
Oreilly Catheter: No
[2024-01-23] MEDS: FERRLECIT IV (15:39)
--- NOTE | 2024-01-24 11:23 | W.HF.CON ---
Heart Failure
- LV Function
Left ventricular function study result: LV Ejection fraction </= 35%
Ejection Fraction Percentage: 30-35
- ARNI
Patient already on ARNI: No
Heart Failure ARNI Contraindication: Acute Renal Failure
- ACEI/ARB
Patient already on ACEI/ARB: No
Heart Failure ACEI/ARB Contraindication: Acute Renal Failure
- Beta Nataly
Patient already on Evidence Based Beta Nataly: Yes
- Mineralocorticord Receptor Antagonist
Patient already on MRA: No
Heart Failure MRA Contraindication: Cr > 2.5 in Men
- SGLT-2 Inhibitor
Patient already on SGLT-2 Inhibitor: No
Heart Failure SGLT-2 Inhibitor Contraindication: eGFR < 25
- NYHA CHF Classification
NYHA CHF Classification Level: Class III - Symptoms w/ min exertion, interferes w/ nml daily activity
- ACC/AHA Stage
ACC/AHA Stage: Stage C: Symptomatic Heart Failure
== END 2024-01-23 15:59 | disposition home health service (06) | DRG 291 ==
LOC: 4 EAST ACU 14:21
PROVIDERS: ADMITTING PHYSICIAN Internal Medicine; ATTENDING PHYSICIAN Internal Medicine; CONSULT PHYSICIAN Internal Medicine Cardiovascular Disease; EMERGENCY PHYSICIAN Emergency Medicine; FAMILY PHYSICIAN Internal Medicine; OTHER PHYSICIAN Specialist
DX: I13.0 Hypertensive heart and chronic kidney disease with heart failure and stage 1 through stage 4 chronic kidney disease, or unspecified chronic kidney disease (principal); I50.43 Acute on chronic combined systolic (congestive) and diastolic (congestive) heart failure; J96.01 Acute respiratory failure with hypoxia; E87.1 Hypo-osmolality and hyponatremia; E87.22 Chronic metabolic acidosis; Z94.0 Kidney transplant status; D84.821 Immunodeficiency due to drugs; N18.4 Chronic kidney disease, stage 4 (severe); D63.1 Anemia in chronic kidney disease; E11.51 Type 2 diabetes mellitus with diabetic peripheral angiopathy without gangrene; E11.22 Type 2 diabetes mellitus with diabetic chronic kidney disease; F32.A Depression, unspecified; F41.9 Anxiety disorder, unspecified; E78.00 Pure hypercholesterolemia, unspecified; I25.10 Atherosclerotic heart disease of native coronary artery without angina pectoris; K21.9 Gastro-esophageal reflux disease without esophagitis; Z79.4 Long term (current) use of insulin; Z79.82 Long term (current) use of aspirin; Z79.84 Long term (current) use of oral hypoglycemic drugs; Z79.52 Long term (current) use of systemic steroids; Z79.621 Long term (current) use of calcineurin inhibitor; Z79.69 Long term (current) use of other immunomodulators and immunosuppressants; Z79.899 Other long term (current) drug therapy; Z87.891 Personal history of nicotine dependence
CPT/HCPCS: 36415; 71046; 80048; 80053; 80197; 82607; 82728; 82746; 82962; 83540; 83550; 83735; 83880; 83930; 84484; 85025; 85610; 85730; 93005; 93306; 96374; 97116; 97163; 97165; 97530; 99291; J2916; Q9950

== ENCOUNTER → 2024-02-14 10:22 | Outpatient (REF) | payer MEDICARE, OTHER, SELFPAY ==
[2024-02-14 13:03] LABS: Blood Urea Nitrogen 52 mg/dl (9-20); Calcium 9.1 mg/dl (8.4-10.2); Carbon Dioxide 25 mmol/L (22-30); Chloride 94 mmol/L (98-107); Glucose 180 mg/dl (70-99); Potassium 3.9 mmol/L (3.5-5.1); Sodium 134 mmol/L (135-145); eGFR 22.77
== END ==
LOC: HWLAB 10:22
PROVIDERS: ATTENDING PHYSICIAN Internal Medicine Cardiovascular Disease; FAMILY PHYSICIAN Internal Medicine
DX: I10 Essential (primary) hypertension (principal)
CPT/HCPCS: 36415; 80048

== ENCOUNTER 2024-03-07 15:29 | Inpatient (IN) | payer MEDICARE, OTHER, SELFPAY ==
[2024-03-07] VITALS (8 sets, daily range): BP systolic 149–196; BP diastolic 81–110; BMI 27.6
--- NOTE | 2024-03-07 13:07 | ED.GENMED ---
History of Present Illness
General
Chief Complaint: Breathing Problem
Source: patient
Exam Limitations: none
Time Seen by Provider: 03/07/24 12:53
Nursing documentation reviewed up to this point in time: agreed with
History of Present Illness
History of Present Illness:
Patient is a 63-year-old male with past medical history of diabetes renal failure renal transplant congestive heart failure, reflux anxiety chronic kidney disease presents to the ER for evaluation. Patient reports he has been gaining weight over
the past 1 week and noticed he is little more short of breath in the morning laying flat. He also notes that his blood pressure has been elevated. Today he reports it was 206/106. He was just admitted January 18 to January 22 for congestive heart
failure. Patient is on 80 mg of Lasix twice a day. He denies any chest pain.
Past History
Past History
ED Past Medical History: CHF, HTN, NIDDM and Other (renal transplant)
ED Past Surgical History: Urological (Kidney transplant 2019)
Social History
Tobacco: Former smoker
Alcohol: Daily (Wine)
Drug: None
Personal:
Living: with family
Employment: Employed
Review of Systems
Review of Systems
Allergies reviewed?: Yes
All Other Systems: ROS reviewed and negative except as documented in HPI and ROS
Constitutional: Reports weight gain
Respiratory: Reports trouble breathing
Cardiac: Reports no symptoms; Denies chest pain
ABD/GI: Reports no symptoms
: Reports no symptoms
Musculoskeletal: Reports no symptoms and other (denies l/e swelling )
Neurological: Reports no symptoms
Hematologic/Lymphatic: Reports no symptoms
Psychiatric: Reports no symptoms
Phy Exam
General Physical Exam
General Presentation: no apparent distress
General age: appears stated age
General Skin: warm and dry
General Habitus: normal
General Mental: alert
General Hydration: appears well hydrated
Cardiovascular Exam
Cardiovascular Exam: regular rate/rhythm, no murmur and normal peripheral pulses
Pulmonary Exam
Pulmonary Exam: lungs clear and no respiratory distress
Neurological Exam
Neurological Exam: alert and oriented x3
Musculoskeletal Exam
Musculoskeletal Exam: full ROM and other (no l/e swelling )
Skin Exam
Skin Exam: normal color and warm/dry
Psychiatric Exam
Psychiatric Exam: normal mood/affect
Scores
Heart Failure Risk
Heart Failure Risk Score: Not Applicable
Course
Orders/Labs/Results
Orders:
Orders
03/07/24 13:24
CMP [Comprehensive Metabolic Panel] Urgent
Complete Blood Count/With Diff Urgent
NT-proBNP Urgent
Troponin I Urgent
03/07/24 13:53
Electrocardiogram (*1) Stat
Reason for Study: Other
Other Reason for Exam: chest pain
Cardiac Monitoring- Treatment ONCE
EKG- Treatment ONCE
CR Chest - 2 Views Urgent
Comment:
Reason For Exam: sob
03/07/24 15:12
Admit/Transfer Patient As Directed
Co-Sign Provider:
Level of Care: Inpatient admission
Assign to:: Telemetry
Physician / Group: Jaci
Diagnosis: Heart Failure
Reason for Telemetry: Acute Heart Failure
Date to Stop Telemetry: 03/10/24
Time to Stop Telemetry: 11:00
Reason for Hospitalization: IV diuretics
Expected length of stay greater than two midnights?: Yes
ELOS- Estimated Length of Stay in days: 3
I certify the patient meets the requirements for IP care: Yes
PRN Pain Medication Management As Directed
May give lesser potent ordered pain med per pt: Yes
preference::
Protocol:: Medication orders for pain may be administered in a
manner that supports deferring to patient preference
when the pt is:
- Requesting an ordered lesser potent pain medication.
Least to most potent pain medications are defined
as: acetaminophen < NSAID < tramadol < opioids
(morphine, oxycodone, hydromorphone).
- Requesting a lesser dose of the same medication IF
ORDERED.
- Requesting a less intrusive route of administration
if both routes are prescribed by the provider (PO <
IV).
03/07/24 15:13
Code Status As Directed
Resuscitation Status: Full Code
03/10/24 11:00
DC Protocol for Telemetry ONCE
Abnormal Lab Results
03/07/24
13:24
RBC 2.77 L 10^6/uL
(4.70-6.10)
Hgb 8.6 L g/dL
(13.0-18.0)
Hct 25.1 L %
(39.0-52.0)
Absolute Lymphs (auto) 0.2 L 10^3/uL
(1.2-3.4)
Immature Gran % 0.6 H %
(0-0.5)
Neutrophils % 89.3 H %
(42.2-75.2)
Lymphocytes % 3.2 L %
(20.5-51.1)
Sodium 134 L mmol/L
(135-145)
Carbon Dioxide 14 L* mmol/L
(22-30)
BUN 46 H mg/dl
(9-20)
Creatinine 2.7 H mg/dL
(0.7-1.3)
Glucose 137 H mg/dl
(70-99)
Troponin I 0.058 H* ng/ml
Total Protein 5.7 L g/dl
(6.3-8.2)
03/07/24 13:24
03/07/24 13:24
Vital Signs
Initial and Last Documented VS:
Initial Vital Signs
Temp Pulse Resp BP Pulse Ox
98.0 F 77 20 149/81 96
03/07/24 12:18 03/07/24 12:18 03/07/24 12:18 03/07/24 12:18 03/07/24 12:18
Last Documented Vital Signs
Temp Pulse Resp BP Pulse Ox
98.0 F 72 17 162/84 95
03/07/24 12:18 03/07/24 13:19 03/07/24 13:19 03/07/24 13:19 03/07/24 13:19
MDM/Problems Addressed
Differential Diagnosis Includes:
Not limited to CHF hypertension
MDM/Problems Addressed:
Patient is a 63-year-old male with history of renal transplant diabetes CHF presents to the ER for increased weight gain, elevated blood pressure, shortness of breath. Patient does have a history of renal insufficiency creatinine is at baseline
today however BNP is greater than 27,000 x-ray shows mild interstitial edema. Patient reports he did take 80 mg x 2 already today. He does have an elevated troponin however no chest pain.
With elevated weight gain shortness of breath elevated BNP and x-ray findings will admit for evaluation, likely diuresis. I did hold off on administering Lasix as patient already took 2:80 mg doses today
Chronic conditions affecting care:
History of renal transplant CHF hypertension renal insufficiency
*Radiology
Radiology exam reviewed: radiology read reviewed
*Pulse Oximetry
Patient hypoxic: no
*EKG
Interpreted by ED Provider?: Yes
Interpretation: abnormal
Heart Rate: 73
Rate: normal
Rhythm: sinus
Ischemia: non-specific ST changes
*Critical Care Note
Total Time (30-74mins, 75-104mins- exclusive of procedures): Not Applicable
ED Attending Note
-
Portions of this chart may have been created with voice recognition software.� Occasional wrong word or��sound alike� substitutions may have occurred due to the inherent limitations of voice recognition software.
Discharge Plan
Departure
Patient Disposition: Admit
Date of Disposition: 03/07/24
Time of Disposition: 15:54
Admit to: Telemetry
Admit to doctor: hospitalist
Presentation/result/management discussed w/ accepting MD/DO: Hospitalist
Patient with high blood pressure during this ER visit?: Yes
Condition: Fair
Covid-19: Not Applicable
Discharge Problem:
Congestive heart failure (CHF)
Interventions
Interventions:
*Risk Screen - Suicide Last Done: 03/07/24 12:17
*General Assessment Last Done: 03/07/24 12:18
*Neglect/Abuse Screening Last Done: 03/07/24 12:18
ED- Fall Risk Assessment Last Done: 03/07/24 13:28
*ED COVID-19 Vaccine History Last Done: 03/07/24 13:28
ED- Cardiac Assessment Last Done: 03/07/24 13:28
ED- Pulmonary Assessment Last Done: 03/07/24 13:28
[2024-03-07 13:33] LABS: % Basophils 0.7 % (0-2); % Eosinophils 0.6 % (0-6); % Immature Granulocytes 0.6 % (0-0.5); % Lymphocytes 3.2 % (20.5-51.1); % Monocytes 5.6 % (1.7-9.3); % Neutrophils 89.3 % (42.2-75.2); Absolute Basophils 0.1 10^3/uL (0-0.2); Absolute Lymphocytes 0.2 10^3/uL (1.2-3.4); Absolute Monocytes 0.4 10^3/uL (0.1-0.6); Absolute Neutrophils 6.1 10^3/uL (1.4-6.5); Hematocrit 25.1 % (39.0-52.0); Hemoglobin 8.6 g/dL (13.0-18.0); Mean Corp Hgb Conc. 34.3 g/dL (33.0-37.0); Mean Corpuscular Volume 90.6 fL (80.0-94.0); Mean Platelet Volume 9.2 fL (7.4-10.4); Nucleated Red Blood Cells % 0 % (-); Platelet Count 158 10^3/uL (130-400); Red Blood Cell Count 2.77 10^6/uL (4.70-6.10); Red Cell Dist. Width 13.6 % (11.5-14.5); White Blood Cell Count 6.8 10^3/uL (4.8-10.8)
[2024-03-07 13:48] LABS: ALT (SGPT) 26 U/L (0-50); AST (SGOT) 27 U/L (17-59); Albumin 3.7 g/dl (3.5-5.0); Alkaline Phosphatase 84 U/L (38-126); Blood Urea Nitrogen 46 mg/dl (9-20); Calcium 8.8 mg/dl (8.4-10.2); Carbon Dioxide 14 mmol/L (22-30); Chloride 103 mmol/L (98-107); Glucose 137 mg/dl (70-99); Potassium 4.8 mmol/L (3.5-5.1); Sodium 134 mmol/L (135-145); Total Bilirubin 0.6 mg/dl (0.2-1.3); Total Protein 5.7 g/dl (6.3-8.2); eGFR 25.84
[2024-03-07 13:59] LABS: NT-proBNP > 27000 pg/ml; Troponin I 0.058 ng/ml
--- NOTE | 2024-03-07 15:10 | HPS.HSE ---
Family Physician
-
Family Physician: Germaine Vincent
Chief Complaint
-
Weight Gain
History of Present Illness
Patient is 63-year-old male past medical history of ASCVD, chronic heart failure, renal transplant now with CKD stage IV, and diabetes mellitus who presents with weight gain. Patient reports he has been gaining a pound or 2 every day for the last
week or so. Review of records indicate patient is up 10 kg from prior hospitalization in January 2024. He admits to associated conversational dyspnea, and dyspnea on exertion, as well as increasing abdominal distention. He notes he recently
started a new diuretic medication, metolazone, and took the first dose today. He denies chest pains or palpitations. He denies fever, sweats or chills.
Medical History
Past Medical History
Past Medical History: Reports Other
Additional Past Medical History:
ASCVD s/p Bilateral Carotid Endarterectomy
Chronic HFrEF
Renal Transplant in Feb 2020
CKD Stage IV
Chronic Metabolic Acidosis
Diabetes Mellitus with Nephropathy and Neuropathy
Essential Hypertension
Hyperlipidemia
Chronic Hyponatremia
Anemia of Chronic Disease
BPH
Depression
Osteoarthritis
Past Surgical History: Reports Other
Additional Past Surgical History:
Bilateral Carotid Endarterectomy
Renal Transplant - Feb 2020
Social History
Tobacco: Non-smoker
Alcohol: None
Drug: None
Family History
Family History: Not pertinent
Allergies / Home Medications
Allergies reflects when Allergies were last updated in [employer].
Home Medications with original date entered in [employer]
Allergy/Medication List:
Allergies
Allergy/AdvReac Type Severity Reaction Status Date / Time
No Known Allergies Allergy Verified 03/07/24 12:23
Home Medications
linagliptin 5 mg tablet (Tradjenta) 5 mg PO DAILY Diabetes 07/30/20
aspirin 81 mg chewable tablet 81 mg PO DAILY Blood clot prevention/tx 09/02/21
gabapentin 300 mg capsule 300 mg PO HS Pain 09/02/21
acetaminophen 500 mg tablet (Tylenol Extra Strength) 1,000 mg PO BIDPRN PRN mild pain 05/02/23
mycophenolate sodium 180 mg tablet,delayed release 360 mg PO BID renal transplant 05/02/23
pravastatin 10 mg tablet 10 mg PO HS High Cholesterol 05/02/23
prednisone 5 mg tablet 5 mg PO DAILY Anti-Inflammatory 05/02/23
ezetimibe 10 mg tablet 10 mg PO DAILY High Cholesterol 01/19/24
mirabegron 50 mg tablet,extended release 24 hr 50 mg PO DAILY Muscle Spasms 01/19/24
pantoprazole 40 mg tablet,delayed release 40 mg PO DAILY Gastrointestinal Issue 01/19/24
carvedilol 6.25 mg tablet 6.25 mg PO BID #60 tabs 01/23/24
furosemide 80 mg tablet 80 mg PO BID Fluid Retention/Swelling #60 tabs 01/23/24
insulin aspart U-100 100 unit/mL (3 mL) subcutaneous pen (Novolog FlexPen U-100 Insulin aspart) 3 unit (0.03 mL) SC MEALS Diabetes #0 mL 01/23/24
insulin glargine 100 unit/mL (3 mL) subcutaneous pen (Lantus Solostar U-100 Insulin) 5 unit (0.05 mL) SC DAILY@1200 Diabetes #0 mL 01/23/24
sodium bicarbonate 650 mg tablet 650 mg PO DAILY #0 tabs 01/23/24
escitalopram oxalate 20 mg tablet 20 mg PO DAILY 03/07/24
hydralazine 100 mg tablet 100 mg PO TID 03/07/24
isosorbide mononitrate 60 mg tablet,extended release 24 hr 60 mg PO DAILY 03/07/24
metolazone 5 mg tablet 5 mg PO DAILYPRN PRN weight >182lbs 03/07/24
Review of Systems
-
A 12 point ROS was completed and negative except as noted: Yes
Constitutional: Denies Fever or Chills
Respiratory: Reports Trouble Breathing; Denies Cough
Cardiac: Denies Chest Pain or Palpitations
Abdomen/GI: Denies Abdominal Pain, Nausea, Vomiting or Diarrhea
Physical Exam
Vital Signs
Vital Signs
Temp Pulse Resp BP Pulse Ox
98.0 F 72 17 162/84 95
03/07/24 12:18 03/07/24 13:19 03/07/24 13:19 03/07/24 13:19 03/07/24 13:19
Physical Exam
General: Comfortable and Conversant
HEENT: Anicteric and Moist mucous membranes
Respiratory: Other (Coarse breath sounds with faint rales at bilateral bases)
Cardiac: S1/S2 and Regular Rhythm; No Murmur
GI: Soft, Non Tender and Other (Protuberant)
Rectal: Deferred by Provider
Musculoskeletal: No Clubbing, No Cyanosis and No Edema
Skin: Warm and Dry
Neuro: Awake, Alert, Oriented and Nonfocal/grossly intact
Psych: Calm
Laboratory Results
-
03/07/24 13:24
03/07/24 13:24
Laboratory Results
Total Bilirubin 0.6 mg/dl (0.2-1.3) 03/07/24 13:24
AST 27 U/L (17-59) 03/07/24 13:24
ALT 26 U/L (0-50) 03/07/24 13:24
Alkaline Phosphatase 84 U/L (38-126) 03/07/24 13:24
Troponin I 0.058 ng/ml H* 03/07/24 13:24
Chest X-Ray:
Very mild interstitial edema with a trace right pleural effusion and right basilar atelectasis
Impression/Plan
-
Acute on Chronic HFmrEF
-Echo Jan 2024: Moderately reduced left ventricular systolic function with global hypokinesis and EF 30-35%. Stage II diastolic dysfunction.
-Consult Cardiology
-Continue Lasix 80mg IV BID
-Monitor Is&Os and Daily Weights
Acute on Chronic Metabolic Acidosis
-Give amp of sodium bicarb IV now
-Continue oral sodium bicarbonate
Renal Transplant in Feb 2020
-Continue prednisone and mycophenolate
CKD Stage IV
-Monitor creatine closely while on diuretics
Diabetes Mellitus, Type II
-Continue Tradjenta
-Continue Lantus and Novolog
-Monitor sugars and continue coverage insulin
Essential Hypertension
-Continue Coreg, Hydralazine
Hyperlipidemia
-Continue Zetia and pravastatin
ASCVD s/p Bilateral Carotid Endarterectomy
-Continue aspirin
Chronic Hyponatremia
-Monitor sodium level
Anemia of Chronic Disease
-Hgb slightly lower than baseline
-Continue to monitor following diuresis
Depression
-Continue Lexapro
DVT proph: SC Heparin
Code Status: Full Code
--- NOTE | 2024-03-07 16:21 | W.CON.NEPH ---
Consultation
-
Date/Time Consultation Requested: 03/07/2024 1500
Date/Time Consultation Performed: 03/07/24
Requesting Provider: Dr Beatty
Performing Provider: Dr. Horton
Reason for Consultation: Renal transplant
Medical History
-
Chief Complaint: Shortness of breath
History of Present Illness:
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 His immunosuppression
regimen includes prednisone, Myfortic, belatacept. He does have progressive CKD at stage IV with baseline creatinine now running around 3.0. He has also has nephrotic range proteinuria. He has diabetes mellitus type 2 typically controlled on
insulin. Since he had retired he says that his diet has not been good for his medical issues. He maintains Lasix therapy at home and states that his weights do fluctuate. He does have known heart failure with preserved ejection fraction. He comes
in today because over the last several days he has gained 7 pounds of weight. He has no shortness of breath and does not report edema. He does report that his blood pressures have also been higher in the last 48 hours.He says that he has had no
issues with his medications.
Past Medical History
Living unrelated renal transplant February 2020 [facility], prior peritoneal dialysis, hypertension, Diazemuls type II, CKD 4, peripheral arterial disease with carotid artery disease and bilateral carotid endarterectomy, hyperlipidemia,
depression, anemia, thickened distal esophagus, heart failure preserved ejection fraction
Social History
No current tobacco or alcohol
Family History
Family History: Not Pertinent
Allergies / Home Medications
Allergy/AdvReac Type Severity Reaction Status Date / Time
No Known Allergies Allergy Verified 03/07/24 12:23
�Medication �Instructions �Recorded �Confirmed �Type
linagliptin 5 mg tablet (Tradjenta) 5 mg PO DAILY Diabetes 07/30/20 03/07/24 History
aspirin 81 mg chewable tablet 81 mg PO DAILY Blood clot 09/02/21 03/07/24 History
prevention/tx
gabapentin 300 mg capsule 300 mg PO HS Pain 09/02/21 03/07/24 History
acetaminophen 500 mg tablet 1,000 mg PO BIDPRN PRN mild pain 05/02/23 03/07/24 History
(Tylenol Extra Strength)
mycophenolate sodium 180 mg 360 mg PO BID renal transplant 05/02/23 03/07/24 History
tablet,delayed release
pravastatin 10 mg tablet 10 mg PO HS High Cholesterol 05/02/23 03/07/24 History
prednisone 5 mg tablet 5 mg PO DAILY Anti-Inflammatory 05/02/23 03/07/24 History
ezetimibe 10 mg tablet 10 mg PO DAILY High Cholesterol 01/19/24 03/07/24 History
mirabegron 50 mg tablet,extended 50 mg PO DAILY Muscle Spasms 01/19/24 03/07/24 History
release 24 hr
pantoprazole 40 mg tablet,delayed 40 mg PO DAILY Gastrointestinal 01/19/24 03/07/24 History
release Issue
carvedilol 6.25 mg tablet 6.25 mg PO BID #60 tabs 01/23/24 03/07/24 Rx
furosemide 80 mg tablet 80 mg PO BID Fluid 01/23/24 03/07/24 Rx
Retention/Swelling #60 tabs
insulin aspart U-100 100 unit/mL 3 unit (0.03 mL) SC MEALS Diabetes 01/23/24 03/07/24 Rx
(3 mL) subcutaneous pen (Novolog #0 mL
FlexPen U-100 Insulin aspart)
insulin glargine 100 unit/mL (3 5 unit (0.05 mL) SC DAILY@1200 01/23/24 03/07/24 Rx
mL) subcutaneous pen (Lantus Diabetes #0 mL
Solostar U-100 Insulin)
sodium bicarbonate 650 mg tablet 650 mg PO DAILY #0 tabs 01/23/24 03/07/24 Rx
escitalopram oxalate 20 mg tablet 20 mg PO DAILY 03/07/24 03/07/24 History
hydralazine 100 mg tablet 100 mg PO TID 03/07/24 03/07/24 History
isosorbide mononitrate 60 mg 60 mg PO DAILY 03/07/24 03/07/24 History
tablet,extended release 24 hr
metolazone 5 mg tablet 5 mg PO DAILYPRN PRN weight >182lbs 03/07/24 03/07/24 History
Review of Systems
-
Increased weight and hypertension, no headaches
All other systems: Negative unless noted
Physical Exam
Vital Signs
Vital Signs
Temp Pulse Resp BP Pulse Ox
98.0 F 75 23 163/90 97
03/07/24 12:18 03/07/24 16:15 03/07/24 16:15 03/07/24 14:00 03/07/24 16:15
Lab Results
WBC 6.8 10^3/uL (4.8-10.8) 03/07/24 13:24
RBC 2.77 10^6/uL (4.70-6.10) L 03/07/24 13:24
Hgb 8.6 g/dL (13.0-18.0) L 03/07/24 13:24
Hct 25.1 % (39.0-52.0) L 03/07/24 13:24
Plt Count 158 10^3/uL (130-400) 03/07/24 13:24
Sodium 134 mmol/L (135-145) L 03/07/24 13:24
Potassium 4.8 mmol/L (3.5-5.1) 03/07/24 13:24
Chloride 103 mmol/L (98-107) 03/07/24 13:24
Carbon Dioxide 14 mmol/L (22-30) L* 03/07/24 13:24
BUN 46 mg/dl (9-20) H 03/07/24 13:24
Creatinine 2.7 mg/dL (0.7-1.3) H 03/07/24 13:24
eGFR 25.84 03/07/24 13:24
Glucose 137 mg/dl (70-99) H 03/07/24 13:24
Calcium 8.8 mg/dl (8.4-10.2) 03/07/24 13:24
Wqs-E-Uaqtfvsyyuk Pept > 67918 pg/ml 03/07/24 13:24
Albumin 3.7 g/dl (3.5-5.0) 03/07/24 13:24
Laboratory Tests
01/23/24 02/14/24
04:56 10:40
Hgb 9.4 L
Sodium 134 L
Carbon Dioxide 25
Creatinine 3.0 H
Physical Exam
Patient is awake alert oriented and in no distress. Mood and affect were pleasant, insight and judgment were good. Pupils are equal round and reactive to light, extraocular movements are intact, sclera were anicteric. Hearing was normal, ears and
nose are intact. Oropharynx was clear. Neck was supple with trachea midline and no thyromegaly. Heart was regular rate and rhythm without rubs. Lower extremities without edema. Lungs were clear to auscultation bilaterally and with normal
excursion. Abdomen was soft, nontender, with normal active bowel sounds, and no hepatosplenomegaly. Skin was without rash and with normal turgor.
Data Reviewed
-
Radiology: Image Personally Visualized and interpreted (Chest x-ray on 03/07/2024 by my reading shows vascular prominence)
Medical Tests (Nuc Med, Echo etc): Image Personally Visualized and interpreted (EKG on 03/07/2024 by reading shows normal sinus rhythm lateral T wave abnormality)
Labs: Labs Reviewed by me
Old Records: Reviewed
Assessment/Plan
-
Assessment:
Acute HFpEF
Renal transplant (02/18/20) [place]-living unrelated
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
Hypertension with history of orthostasis
CKD4-last cr 3.02 at [place] visit -Dr Leon
met acidosis
Type 2 diabetes
Hypercholesterolemia
Depression
Anemia
Hyponatremia
Severe thickening of distal esophagus by imaging
Plan:
Follow BMP
Lasix 80 mg IV twice daily
Already took metolazone today
Continue Myfortic and prednisone
Hyponatremia should improve with diuresis
He would probably benefit from Ozempic or Mounjaro
Increase oral bicarbonate to twice daily
Clinically does not appear to be in decompensated heart failure and right heart catheterization may be beneficial in the future (Laying supine on room air without distress)
[2024-03-07] MEDS: SODIUM BICARBONATE 50 MEQ IV (16:23)
[2024-03-07] MEDS: FLUSH (NSS) 1 FLUSH IV (16:26)
--- NOTE | 2024-03-07 16:41 | CON.CAR ---
Addendum entered and electronically signed by Michael Walton MD 03/07/24 17:23:
I saw and examined the patient.
The Field Enumerator's note was reviewed and I agree with the note.
Comment:
GEN: No distress, awake, Ox3
HEENT: supple, anicteric, mmm
LUNGS: CTA, no wheezes/rales
CV: Reg, S1/S2, 1/6 syst LSB, S4+
ABD: soft, BS+, + distended
EXT: No edema
NEURO: Gross non-focal
SKIN: No rash
Plan:
He has a past medical history of chronic heart failure with reduced ejection fraction, renal transplant 2020 with subsequent CKD stage IV, diabetes, hypertension, and hyperlipidemia. He presents with 1 week of progressive weight gain, abdominal
bloating, congestion, and shortness of breath. He mitts to being somewhat noncompliant with his diet. He took an additional metolazone today but continued to feel short of breath and presented with acute on chronic heart failure with reduced
ejection fraction. proBNP was elevated at 27,000.
Start Lasix 80 mg IV twice daily. Creatinine at 2.7. Continue to follow. Nephrology consult for renal transplant.
Continue bicarb and follow daily weights.
Continue Coreg, nitrates and hydralazine.
Troponin is abnormal with a likely nonischemic myocardial injury. Continue to follow.
Last ejection fraction was 30 to 35%. Will repeat. If ejection fraction remains depressed could consider evaluation for ICD, QRS is narrow though so he would not be a candidate for resynchronization therapy.
Continue immunosuppression drugs including prednisone and mycophenolate.
Original Note:
Consultation
Consultation Request
Date/Time Consultation Performed: 03/07/24
Requesting Provider: Mitzy Brice PA-C
Performing Provider: Holly Fairchild PA-C for Dr. Walton
Reason for Consultation: CHF
Medical History
-
Chief Complaint: SOB
History of Present Illness:
Patient is a 63-year-old male with past medical history of renal transplant in 2019 previously on PD, chronic immunosuppression, CKD stage 4, carotid disease status post bilateral carotid endarterectomy, type 2 diabetes, hypertension,
hyperlipidemia. He had admission for heart failure 07/2023 and since that time has been on chronic diuretic therapy. Echo that admission with preserved EF. Had Lexiscan nuclear stress test 08/2023 showing medium size predominantly fixed RCA
distribution defect and EF of 42%. Echo showed preserved EF during 07/2023 admission. Due to his risk of contrast nephropathy, he has been managed medically for possible coronary disease. He was then again admitted to 01/2024 for acute heart
failure. Echocardiogram showed new reduction in EF to 30 to 35%. He is on medical therapy with Coreg, Imdur, hydralazine. He denies chest pain. He reports noting recent weight gain and dyspnea on exertion and feelings of being congested in the
morning which clears throughout the day. He reports his diet has been better than previously which could attribute to some of his weight gain. He denies lower extremity edema however admits to abdominal bloating. He takes p.o. Lasix 80 mg twice
daily. He has as needed metolazone 5mg for weight of greater than 182 pounds, and took his first dose today, then came to the emergency room. Reports a dry weight of 175 pounds. proBNP greater than 27,000. Cardiology consulted for evaluation
PMH:
Chronic HFrEF
CKD IV
HTN
s/p living, unrelated renal transplant RLQ at [facility] 01/15/20
previously on PD
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
was not taking mycophenolate 2020 until 2022, he forgot
Chronic immunosuppressed state
Carotid artery disease s/p B/L carotid endarterectomy 2017
Type 2 diabetes
Diabetic nephropathy
Hypertension
Hypercholesterolemia
Depression
Anemia
Hyponatremia
Severe thickening of distal esophagus by imaging
Past Medical History
Past Medical History: Other (in HPI)
Past Surgical History: Cardiac (right CEA 08/2017, left CEA 02/2018) and Other (renal transplant at [facility] 01/2020)
Social History
Tobacco: Non-Smoker
Alcohol: Occasional
Drug: None
Personal:
Living: With Family
Employment: Employed
Family History
Family History: CAD
Allergies / Home Medications
Allergy/AdvReac Type Severity Reaction Status Date / Time
No Known Allergies Allergy Verified 03/07/24 12:23
�Medication �Instructions �Recorded �Confirmed �Type
linagliptin 5 mg tablet (Tradjenta) 5 mg PO DAILY Diabetes 07/30/20 03/07/24 History
aspirin 81 mg chewable tablet 81 mg PO DAILY Blood clot 09/02/21 03/07/24 History
prevention/tx
gabapentin 300 mg capsule 300 mg PO HS Pain 09/02/21 03/07/24 History
acetaminophen 500 mg tablet 1,000 mg PO BIDPRN PRN mild pain 05/02/23 03/07/24 History
(Tylenol Extra Strength)
mycophenolate sodium 180 mg 360 mg PO BID renal transplant 05/02/23 03/07/24 History
tablet,delayed release
pravastatin 10 mg tablet 10 mg PO HS High Cholesterol 05/02/23 03/07/24 History
prednisone 5 mg tablet 5 mg PO DAILY Anti-Inflammatory 05/02/23 03/07/24 History
ezetimibe 10 mg tablet 10 mg PO DAILY High Cholesterol 01/19/24 03/07/24 History
mirabegron 50 mg tablet,extended 50 mg PO DAILY Muscle Spasms 01/19/24 03/07/24 History
release 24 hr
pantoprazole 40 mg tablet,delayed 40 mg PO DAILY Gastrointestinal 01/19/24 03/07/24 History
release Issue
carvedilol 6.25 mg tablet 6.25 mg PO BID #60 tabs 01/23/24 03/07/24 Rx
furosemide 80 mg tablet 80 mg PO BID Fluid 01/23/24 03/07/24 Rx
Retention/Swelling #60 tabs
insulin aspart U-100 100 unit/mL 3 unit (0.03 mL) SC MEALS Diabetes 01/23/24 03/07/24 Rx
(3 mL) subcutaneous pen (Novolog #0 mL
FlexPen U-100 Insulin aspart)
insulin glargine 100 unit/mL (3 5 unit (0.05 mL) SC DAILY@1200 01/23/24 03/07/24 Rx
mL) subcutaneous pen (Lantus Diabetes #0 mL
Solostar U-100 Insulin)
sodium bicarbonate 650 mg tablet 650 mg PO DAILY #0 tabs 01/23/24 03/07/24 Rx
escitalopram oxalate 20 mg tablet 20 mg PO DAILY 03/07/24 03/07/24 History
hydralazine 100 mg tablet 100 mg PO TID 03/07/24 03/07/24 History
isosorbide mononitrate 60 mg 60 mg PO DAILY 03/07/24 03/07/24 History
tablet,extended release 24 hr
metolazone 5 mg tablet 5 mg PO DAILYPRN PRN weight >182lbs 03/07/24 03/07/24 History
Review of Systems
-
History Source: Patient
All other systems: Negative unless noted
Physical Exam
Vital Signs
Temp Pulse Resp BP Pulse Ox
98.0 F 75 23 163/90 97
03/07/24 12:18 03/07/24 16:15 03/07/24 16:15 03/07/24 14:00 03/07/24 16:15
Lab Results
03/07/24 13:24
03/07/24 13:24
Troponin I 0.058 ng/ml H* 03/07/24 13:24
Iue-C-Tcwwfxhfxfv Pept > 44362 pg/ml 03/07/24 13:24
Physical Exam
General: No Apparent Distress and Comfortable
HEENT: Normocephalic, Anicteric and Moist Mucous Membranes
Respiratory: Crackles (few) and Non Labored Respirations
Cardiac: S1/S2 and Regular Rhythm
GI: Soft, Non Tender, Normal Bowel Sounds and Distended (mild)
Musculoskeletal: No Clubbing, No Cyanosis and Edema (trace of B/L LE)
Skin: Warm and Dry
Neuro: AO x 3
Impression / Plan
-
Primary Machine Operator General: Dr. ISABEL Ruiz
Assessment:
Presentation with PALM, weight gain
Acute on chronic HFpEF
Accelerated HTN
Elevated troponin, suspected nonischemic myocardial injury
Acute on chronic metabolic acidosis
CKD IV
s/p living, unrelated renal transplant RLQ at [facility] 01/15/20
previously on PD
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
was not taking mycophenolate 2020 until 2022, he forgot
Chronic immunosuppressed state
Carotid artery disease s/p B/L carotid endarterectomy 2017
Type 2 diabetes
Diabetic nephropathy
Hypertension
Hypercholesterolemia
Hyponatremia, chronic
Depression
Anemia of chronic disease
Severe thickening of distal esophagus by imaging
Lexiscan nuclear stress test 08/17/2023: medium size predominantly fixed RCA distribution defect with small predominantly reversible anterior apical and apical defects with EF 42%
Echo 07/31/2023: EF 54%, no regional wall motion abnormalities noted, mild MR
Echo 01/19/2024: EF 30 to 35%, global hypokinesis with regional variability, stage II diastolic dysfunction, moderate TR, estimated PAP 48 mmHg
Plan:
-Presented with weight gain and dyspnea on exertion as well as accelerated hypertension, higher readings at home than appreciated here
-proBNP greater than 27,000. Chest x-ray improved from prior from 01/2024, however with evidence of mild CHF. Dry weight 175 pounds per patient
-Appears comfortable. On room air sats 97%
-Received 2 doses of p.o. Lasix 80 mg and metolazone 5 mg today.
-Given baseline CKD 4, will hold off on additional diuretic therapy today and pending blood work in a.m. plan to initiate IV Lasix 80 mg twice daily. Discussed with nephrology
-Will check follow-up echo study in a.m. to reevaluate EF
-Continue Coreg, hydralazine, Imdur. uptitrate as able. follow BP trends. No POLLY/ARB/ARNI, Aldactone, or SGLT2 inhibitor given renal function
-Troponin 0.058, trend to peak. No complaints of chest pain. EKG with lateral T wave inversion. Concern for underlying coronary disease, being medically managed due to chronic kidney disease. Continue aspirin, pravastatin, Zetia
-If EF remains low by repeat echo, may need consideration for eventual ICD
Data Reviewed
-
EKG: Tracing Personally Visualized and interpreted
Radiology: Report Reviewed by me
Medical Tests (Nuc Med, Echo etc): Report Reviewed by me
Labs: Labs Reviewed by me
Old Records: Reviewed
--- NOTE | 2024-03-07 17:08 | W.PN.UPDATE ---
Update Note
Progress Note Update
This is an addendum to the H&P written by Mitzy Brice on 03/07/2024. Patient seen and examined independently with PA.
63-year-old male past medical history of Hf,rEF, Renal transplant in 2019, CKD 4, diabetes, hypertension, hyperlipidemia, bilateral carotid endarterectomy, chronic hyponatremia, anemia of chronic disease, depression, presenting with acute on chronic
HFmrEF exacerbation.
Renal function at baseline. Anemia at baseline. Metabolic acidosis. Chest x-ray shows mild interstitial edema. Cardiac BNP greater than 27,000.
80 IV Lasix twice daily. Check echo in the a.m. Trend troponins. Cardiology, nephrology following.
[2024-03-07 17:20] LABS: Glucose - Point of Care 84 mg/dl (70-99)
[2024-03-07] MEDS: LASIX IV (17:37)
[2024-03-07] MEDS: NOVOLOG FLEXPEN 3 UNITS SC (18:08)
[2024-03-07] MEDS: HEPARIN 5000 UNITS SC (18:09)
[2024-03-07] MEDS: APRESOLINE 100 MG PO ×2 (18:09→21:47)
[2024-03-07] MEDS: NOVOLOG FLEXPEN-LOW RESISTANCE SC (18:36)
[2024-03-07 20:07] LABS: Troponin I 0.061 ng/ml
[2024-03-07] MEDS: MYFORTIC DELAYED REL. 360 MG PO (20:32)
[2024-03-07] MEDS: COREG 6.25 MG PO (20:32)
[2024-03-07] MEDS: SODIUM BICARBONATE 650 MG PO (20:32)
--- NOTE | 2024-03-07 20:33 | PTCARENOTE ---
Addendum entered by Dioni Reese RN 03/08/24 02:02:
Pt's troponin result at 0100 is 0.062, increased from 0.061; pt is asymptomatic. [facility] Gandara notified, no new orders.
Original Note:
Pt's troponin increased from 0.058 to 0.061; pt is asymptomatic. House [facility] Gandara notified, no new orders.
[2024-03-07] MEDS: TYLENOL 650 MG PO (20:34)
[2024-03-07 21:11] LABS: Glucose - Point of Care 178 mg/dl (70-99)
[2024-03-07] MEDS: PRAVACHOL 10 MG PO (21:47)
[2024-03-07] MEDS: NEURONTIN 300 MG PO (21:47)
--- NOTE | 2024-03-07 23:00 | PTCARENOTE ---
Addendum entered by Dioni Reese RN 03/08/24 04:23:
[facility] Gandara notified by this RN that pt's BP is still elevated at 184/107. No new orders, will continue to monitor.
Original Note:
This RN notified [facility] Gandara that pt's BP manually at 2300 was 196/100. Will continue to monitor, no new orders at this time.
[2024-03-08] MEDS: HEPARIN 5000 UNITS SC ×4 (00:39→23:00)
[2024-03-08 01:43] LABS: Troponin I 0.062 ng/ml
[2024-03-08 03:06] VITALS: BP 184/107
[2024-03-08 06:00] VITALS: BMI 27.5
[2024-03-08 06:38] LABS: Hematocrit 27.2 % (39.0-52.0); Hemoglobin 9.1 g/dL (13.0-18.0); Mean Corp Hgb Conc. 33.5 g/dL (33.0-37.0); Mean Corpuscular Hgb 29.7 pg (27.0-31.0); Mean Corpuscular Volume 88.9 fL (80.0-94.0); Mean Platelet Volume 9.3 fL (7.4-10.4); Platelet Count 154 10^3/uL (130-400); Red Blood Cell Count 3.06 10^6/uL (4.70-6.10); Red Cell Dist. Width 13.5 % (11.5-14.5); White Blood Cell Count 10.4 10^3/uL (4.8-10.8)
[2024-03-08 07:02] LABS: Blood Urea Nitrogen 42 mg/dl (9-20); Carbon Dioxide 19 mmol/L (22-30); Chloride 99 mmol/L (98-107); Estimated Creatinine Clearance 28 ml/min; Glucose 147 mg/dl (70-99); Potassium 5.1 mmol/L (3.5-5.1); Sodium 133 mmol/L (135-145); eGFR 25.84
[2024-03-08 07:04] LABS: Troponin I 0.062 ng/ml
[2024-03-08 07:37] LABS: Glucose - Point of Care 148 mg/dl (70-99)
[2024-03-08] MEDS: NOVOLOG FLEXPEN-LOW RESISTANCE SC (08:02)
[2024-03-08] MEDS: LASIX 80 MG IV ×2 (08:03→16:17)
[2024-03-08] MEDS: DELTASONE 5 MG PO (08:04)
[2024-03-08] MEDS: MYFORTIC DELAYED REL. 360 MG PO ×2 (08:04→20:11)
[2024-03-08] MEDS: LEXAPRO 20 MG PO (08:05)
[2024-03-08] MEDS: ZETIA 10 MG PO (08:05)
[2024-03-08] MEDS: PROTONIX 40 MG PO (08:05)
[2024-03-08] MEDS: IMDUR (EXTENDED RELEASE) 60 MG PO (08:05)
[2024-03-08] MEDS: APRESOLINE 100 MG PO ×3 (08:05→21:40)
[2024-03-08] MEDS: DETROL LA 4 MG PO (08:05)
[2024-03-08] MEDS: SODIUM BICARBONATE 650 MG PO ×2 (08:05→20:11)
[2024-03-08] MEDS: COREG 6.25 MG PO (08:06)
[2024-03-08] MEDS: LOW STRENGTH ASPIRIN 81 MG PO (08:06)
[2024-03-08] MEDS: JANUVIA 25 MG PO (08:06)
[2024-03-08] MEDS: NOVOLOG FLEXPEN 3 UNITS SC ×3 (08:11→16:26)
--- NOTE | 2024-03-08 08:40 | VNURNOTE ---
Chart reviewed. Patient is current with [facility] nursing. Will continue to follow hospital course and DC plans.
[2024-03-08 08:51] LABS: Glycohemoglobin (HgbA1c) 6.1 % (4.0-5.6)
--- NOTE | 2024-03-08 10:44 | W.PN.NEPH.PH ---
Today's Communication / Plan
-
Fluid restriction
Maintain diuresis
Assessment/Plan
-
Assessment:
Acute HFpEF
Renal transplant (02/18/20) [place]-living unrelated
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
Hypertension with history of orthostasis
CKD4-last cr 3.02 at [facility] visit -Dr Leon
met acidosis
Type 2 diabetes
Hypercholesterolemia
Depression
Anemia
Hyponatremia
Severe thickening of distal esophagus by imaging
Plan:
Follow BMP
Lasix 80 mg IV twice daily
Creatinine remained stable at 2.7
Continue Myfortic and prednisone
Hyponatremia should improve with diuresis, add 1500 cc/day fluid restriction
He would probably benefit from Ozempic or Mounjaro
Increase of oral bicarbonate to twice daily with some improvement
Clinically does not appear to be in decompensated heart failure and right heart catheterization may be beneficial in the future (Laying supine on room air without distress)
-
-
Date of Service: March 08, 2024
CC / HPI / ROS
-
Chief Complaint:
Chronic kidney disease stage 4
History of Present Illness:
Hyponatremia at 133
Creatinine stable at 2.7
Metabolic acidosis improving with oral bicarbonate
Review of Systems:
Nonoliguric
Weights down
Labs
-
Labs:
WBC 10.4 10^3/uL (4.8-10.8) 03/08/24 06:26
RBC 3.06 10^6/uL (4.70-6.10) L 03/08/24 06:26
Hgb 9.1 g/dL (13.0-18.0) L 03/08/24 06:26
Hct 27.2 % (39.0-52.0) L 09/27/24 06:26
Plt Count 154 10^3/uL (130-400) 03/08/24 06:26
Sodium 133 mmol/L (135-145) L 03/08/24 06:26
Potassium 5.1 mmol/L (3.5-5.1) 03/08/24 06:26
Chloride 99 mmol/L (98-107) 03/08/24 06:26
Carbon Dioxide 19 mmol/L (22-30) L 03/08/24 06:26
BUN 42 mg/dl (9-20) H 03/08/24 06:26
Creatinine 2.7 mg/dL (0.7-1.3) H 03/08/24 06:26
eGFR 25.84 03/08/24 06:26
Glucose 147 mg/dl (70-99) H 03/08/24 06:26
Calcium 9.0 mg/dl (8.4-10.2) 03/08/24 06:26
Ghn-W-Brxwegmbskd Pept > 01520 pg/ml 03/07/24 13:24
Albumin 3.7 g/dl (3.5-5.0) 03/07/24 13:24
Physical Exam
-
Vital Signs:
Vital Signs
Temp Pulse Resp BP Pulse Ox
97.8 F 78 18 184/107 93
03/08/24 03:06 03/08/24 03:06 03/08/24 03:06 03/08/24 03:06 03/08/24 03:06
Cardiovascular:: Regular rate and rhythm
Respiratory:: Bilateral: CTA
Lung Excursion:: Normal
Abdomen:: Nontender and Soft
Extremity Edema:: None: Bilateral:
Oreilly Catheter: No
[2024-03-08 11:00] VITALS: BP 169/89
--- NOTE | 2024-03-08 11:08 | W.PN.CARDCBS ---
Today's Communication / Plan
-
Will continue to diurese with IV Lasix. Creatinine stable at 2.7.
Blood pressure is elevated. Increase Coreg to 12.5 mg p.o. twice daily. Continue Imdur and hydralazine.
Continue immunosuppression for kidney transplant.
Will continue conservative therapy for abnormal troponins.
Impression / Plan
-
Primary Credit Assessment Analyst: Dr. ISABEL Ruiz
Assessment:
Presentation with PALM, weight gain
Acute on chronic HFpEF
Accelerated HTN
Elevated troponin, suspected nonischemic myocardial injury
Acute on chronic metabolic acidosis
CKD IV
s/p living, unrelated renal transplant RLQ at [facility] 01/15/20
previously on PD
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
was not taking mycophenolate 2020 until 2022, he forgot
Chronic immunosuppressed state
Carotid artery disease s/p B/L carotid endarterectomy 2017
Type 2 diabetes
Diabetic nephropathy
Hypertension
Hypercholesterolemia
Hyponatremia, chronic
Depression
Anemia of chronic disease
Severe thickening of distal esophagus by imaging
Lexiscan nuclear stress test 08/17/2023: medium size predominantly fixed RCA distribution defect with small predominantly reversible anterior apical and apical defects with EF 42%
Echo 07/31/2023: EF 54%, no regional wall motion abnormalities noted, mild MR
Echo 01/19/2024: EF 30 to 35%, global hypokinesis with regional variability, stage II diastolic dysfunction, moderate TR, estimated PAP 48 mmHg
Plan:
-He is diuresing with IV diuretics. Continue to follow daily weights.
-proBNP greater than 27,000. Chest x-ray improved from prior from 01/2024, however with evidence of mild CHF. Dry weight 175 pounds per patient
-Appears comfortable. On room air sats 97%
-Creatinine stable at 2.7. Will continue IV Lasix twice daily.
-Will check follow-up echo study in a.m. to reevaluate EF
-Continue Coreg, hydralazine, Imdur. Increase Coreg to 12.5 mg p.o. twice daily. no POLLY/ARB/ARNI, Aldactone, or SGLT2 inhibitor given renal function
-Troponin 0.06 and flat. No complaints of chest pain. EKG with lateral T wave inversion. Concern for underlying coronary disease, being medically managed due to chronic kidney disease. Continue aspirin, pravastatin, Zetia
-If EF remains low by repeat echo, may need consideration for eventual ICD
Progress Note - Credit Assessment Analyst
Subjective
Date of Service: March 08, 2024
Feeling better. still dyspnic but diuresing.
Objective
Labs:
03/08/24 06:26
03/08/24 06:26
Labs
Hgb 9.1 g/dL (13.0-18.0) L 03/08/24 06:26
Hct 27.2 % (39.0-52.0) L 03/08/24 06:26
Plt Count 154 10^3/uL (130-400) 03/08/24 06:26
Sodium 133 mmol/L (135-145) L 03/08/24 06:26
Potassium 5.1 mmol/L (3.5-5.1) 03/08/24 06:26
BUN 42 mg/dl (9-20) H 03/08/24 06:26
Creatinine 2.7 mg/dL (0.7-1.3) H 03/08/24 06:26
Glucose 147 mg/dl (70-99) H 03/08/24 06:26
Troponins
03/07/24 03/07/24 03/07/24
13:24 17:15 19:38
Troponin I 0.058 H* Cancelled 0.061 H*
03/07/24 03/08/24 03/08/24
23:15 00:57 06:26
Troponin I Cancelled 0.062 H* 0.062 H*
Vital Signs and I&O:
Vital Signs
Temp Pulse Resp BP Pulse Ox
97.8 F 78 18 184/107 93
03/08/24 03:06 03/08/24 03:06 03/08/24 03:06 03/08/24 03:06 03/08/24 03:06
Vital Signs
Temp Pulse Resp BP Pulse Ox
97.8 F 78 18 184/107 93
03/08/24 03:06 03/08/24 03:06 03/08/24 03:06 03/08/24 03:06 03/08/24 03:06
Intake & Output
03/06/24 03/07/24 03/08/24 03/09/24
06:59 06:59 06:59 06:59
Intake Total 960 / 960
Output Total 1650 / 1650
Balance -690 / -690
Physical Exam
Physical Exam
GEN: No distress, awake, Ox3
HEENT: supple, anicteric, mmm
LUNGS: CTA, no wheezes/rales
CV: Reg, S1/S2, 1/6 syst LSB, S3+
ABD: soft, BS+, NT/ND
EXT: No edema
NEURO: Gross non-focal
SKIN: No rash
[2024-03-08 11:29] LABS: Glucose - Point of Care 204 mg/dl (70-99)
--- NOTE | 2024-03-08 11:51 | CM ---
Patient seen at bedside. Patient confirmed that he lives with his in a one story home with one step to enter. Patient independent of ADLs, and IADL's. Patient stated that he has recently retired and is adjusting to it. Patient has a walking
stick for outdoor walking of long distances. Patient has not had SNF placement but is current with [facility]. Liaison aware of admission. Patient PCP is Dr. Vincent and he uses the [facility] pharmacy at this time. Patient plan is home with continued [facility]. CM
will continue to follow for discharge planning needs.
Plan: Home vs Home with [facility].
[2024-03-08] MEDS: LANTUS 0.05 UNITS SC (12:33)
[2024-03-08] MEDS: NOVOLOG FLEXPEN-LOW RESISTANCE 2 UNITS SC (12:34)
[2024-03-08 13:53] LABS: Troponin I 0.061 ng/ml
--- NOTE | 2024-03-08 14:00 | W.PN.HOSP.TC ---
Today's Communication/Plan
-
Monitor input output/weight changes
Monitor blood pressure
Ambulate the patient
Plan discharge
Assessment / Plan
Assessment / Plan
Impression
A 63-year-old male with past medical history of diabetes mellitus, chronic kidney disease, renal transplant( 2020 )atherosclerotic cardiovascular disease( bilateral carotid endarterectomy) and essential hypertension.Patient is comfortable
conversant and breathing on room air
Assessment
Acute on chronic heart failure with reduced ejection fraction
Chronic kidney disease
Kidney transplant complications
Diabetes mellitus
Essential hypertension
Atherosclerotic cardiovascular disease
Plan
Acute on chronic heart failure with reduced ejection fraction
Patient had shortness of breath orthopnea and gained 10 pounds over 1 week.
Most likely acute exacerbation of heart failure with fluid overload
80 mg Lasix IV twice a day
Blood pressure 200/106
Patient's baseline weight is 175 pounds, currently he weighs 182 pounds
Diurese the patient
Monitor input output
Monitor weight
Repeat CMP
Chronic kidney disease
Patient's baseline serum creatinine is 2-3
Serum creatinine is 2.7
Nephrology consult appreciated
Continue to monitor RFT's
Continue mycophenolate and prednisone
Hyponatremia should improve with diuresis/add 1500 cc/day fluid restriction
Increase of oral bicarb to twice daily
Kidney transplant complications
Transplant done in 2019
Acute cellular rejection?
Continue prednisone and mycophenolate
Keep RFT's under check
Diabetes mellitus
Diabetes mellitus well-controlled with HbA1c of 6.1
Continue home medications
Keep an eye on glucose levels
Essential hypertension
Patient having higher blood pressure readings from last 3 to 4 days
Continue home medications
Monitor blood pressure and adjust dose accordingly
Atherosclerotic cardiovascular disease
Patient has bilateral carotid endarterectomy performed for ASCVD
continue aspirin and statin
Full code
DVT prophylaxis heparin 8 hourly
Anticipated Discharge: 24 - 48 hours
Subjective/Interval History
-
Date of Service: March 08, 2024
Feels comfortable. Conversant and communicates his concerns about his weight gain of 7 to 10 pounds in 7 days.
Objective Data
-
Labs:
Laboratory Results
03/08/24
06:26
WBC 10.4
Hgb 9.1 L
Hct 27.2 L
Plt Count 154
Sodium 133 L
Potassium 5.1
Chloride 99
Carbon Dioxide 19 L
BUN 42 H
Creatinine 2.7 H
Glucose 147 H
Calcium 9.0
Vital Signs:
Vital Signs
Temp Pulse Resp BP Pulse Ox
98.1 F 79 24 169/89 92
03/08/24 11:00 03/08/24 11:00 03/08/24 11:00 03/08/24 11:00 03/08/24 11:00
I&O
03/07/24 03/08/24 03/09/24
06:59 06:59 06:59
Intake Total 960 / 960
Output Total 1650 / 1650
Balance -690 / -690
Review of Systems
-
All other systems: Reviewed and negative
Physical Exam
-
General: Well Developed, Well Nourished, No Apparent Distress and Comfortable
HEENT: Normocephalic and Atraumatic
Respiratory: Clear to Auscultation, Crackles (occasional) and Non Labored Respirations
Cardiac: Regular Rhythm and S1/S2
GI: Soft, Nontender and Normal Bowel Sounds
Genito-urinary: No Costovertebral Tender
Musculoskeletal: No Clubbing, No Cyanosis and No Edema
Skin: Warm and Dry
Neuro: Awake, Alert and Oriented
Hematologic / Lymphatic: No Lymphadenopathy
Psych: Calm
--- NOTE | 2024-03-08 14:44 | W.PN.UPDATE ---
Update Note
Progress Note Update
I saw and evaluated the patient. I reviewed the resident�s note and agree with findings and plan as documented in the resident�s note.
Patient still have some dyspnea with minimal exertion
not hypoxic
able to lie down flat, somewhat better than yesterday
Acute on Chronic HFrEF
-Echo Jan 2024: Moderately reduced left ventricular systolic function with global hypokinesis and EF 30-35%. Stage II diastolic dysfunction.
-Maintain on IV Lasix 80mg IV BID
-Monitor Is&Os and Daily Weights
-Clinically feeling better.
Renal Transplant in Feb 2020
-Continue prednisone and mycophenolate
-on belatacept infusion as well.
CKD Stage IV
-cr remains close to baseline
-nephro following and help appreciated .
Acute on Chronic Metabolic Acidosis
-oral bicarb dose increased , hco3 19 today.
Troponin elevation
-Nonischemic cardiomyopathy related.
Diabetes Mellitus, Type II
-Continue Tradjenta
-Continue Lantus and Novolog
-Monitor sugars and continue coverage insulin
Essential Hypertension
-Continue Coreg, Hydralazine
Hyperlipidemia
-Continue Zetia and pravastatin
ASCVD s/p Bilateral Carotid Endarterectomy
-Continue aspirin
Chronic Hyponatremia
-Monitor sodium level
Anemia of Chronic Disease
-Hgb slightly lower than baseline
-Continue to monitor following diuresis
Depression
-Continue Lexapro
DVT proph: SC Heparin
Code Status: Full Code
Total time spent : 51mins
[2024-03-08 15:00] VITALS: BP 171/103
[2024-03-08] MEDS: NOVOLOG FLEXPEN-LOW RESISTANCE 1 UNITS SC (16:27)
[2024-03-08 16:31] LABS: Glucose - Point of Care 198 mg/dl (70-99)
[2024-03-08 19:45] VITALS: BP 187/101
[2024-03-08] MEDS: COREG 12.5 MG PO (20:11)
[2024-03-08 20:20] VITALS: BP 187/101
[2024-03-08 21:34] LABS: Glucose - Point of Care 181 mg/dl (70-99)
[2024-03-08] MEDS: NEURONTIN 300 MG PO (21:41)
[2024-03-08] MEDS: PRAVACHOL 10 MG PO (21:41)
[2024-03-08 23:42] VITALS: BP 179/99
[2024-03-09 03:41] VITALS: BP 192/110
[2024-03-09 06:00] VITALS: BMI 26.9
[2024-03-09 07:09] VITALS: BP 180/106
[2024-03-09 07:40] LABS: Blood Urea Nitrogen 43 mg/dl (9-20); Calcium 8.8 mg/dl (8.4-10.2); Carbon Dioxide 24 mmol/L (22-30); Chloride 93 mmol/L (98-107); Estimated Creatinine Clearance 24 ml/min; Glucose 155 mg/dl (70-99); Potassium 3.9 mmol/L (3.5-5.1); Sodium 129 mmol/L (135-145); eGFR 21.07
[2024-03-09 07:51] LABS: Glucose - Point of Care 176 mg/dl (70-99)
[2024-03-09] MEDS: PROTONIX 40 MG PO (08:04)
[2024-03-09] MEDS: MYFORTIC DELAYED REL. 360 MG PO ×2 (08:04→19:46)
[2024-03-09] MEDS: ZETIA 10 MG PO (08:04)
[2024-03-09] MEDS: COREG 12.5 MG PO ×2 (08:04→19:46)
[2024-03-09] MEDS: DETROL LA 4 MG PO (08:05)
[2024-03-09] MEDS: HEPARIN 5000 UNITS SC ×3 (08:05→23:15)
[2024-03-09] MEDS: IMDUR (EXTENDED RELEASE) 60 MG PO (08:05)
[2024-03-09] MEDS: LASIX 80 MG IV (08:05)
[2024-03-09] MEDS: DELTASONE 5 MG PO (08:05)
[2024-03-09] MEDS: APRESOLINE 100 MG PO ×3 (08:05→21:20)
[2024-03-09] MEDS: JANUVIA 25 MG PO (08:05)
[2024-03-09] MEDS: LOW STRENGTH ASPIRIN 81 MG PO (08:05)
[2024-03-09] MEDS: SODIUM BICARBONATE 650 MG PO ×2 (08:06→19:46)
[2024-03-09] MEDS: NOVOLOG FLEXPEN 3 UNITS SC ×3 (09:03→17:00)
[2024-03-09] MEDS: NOVOLOG FLEXPEN-LOW RESISTANCE 1 UNITS SC (09:04)
[2024-03-09 11:45] VITALS: BP 110/69
[2024-03-09 12:04] LABS: Glucose - Point of Care 210 mg/dl (70-99)
[2024-03-09] MEDS: NOVOLOG FLEXPEN-LOW RESISTANCE 2 UNITS SC ×2 (12:21→17:01)
[2024-03-09] MEDS: LEXAPRO 20 MG PO (12:22)
[2024-03-09] MEDS: LANTUS 0.05 UNITS SC (12:22)
--- NOTE | 2024-03-09 14:04 | W.PN.CARDCBS ---
Today's Communication / Plan
-
Has diuresed well. Creatinine of 3.2. Would switch to Lasix 80 mg p.o. twice daily.
I reviewed echo with patient. EF has improved to 45%. Continue Coreg, Imdur and hydralazine.
Would take extra metolazone as needed for weight gain.
Stable for discharge from cardiac standpoint.
Impression / Plan
-
Primary Buffing Machine Operator: Dr. ISABEL Ruiz
Assessment:
Presentation with PALM, weight gain
Acute on chronic HFpEF
Accelerated HTN
Elevated troponin, suspected nonischemic myocardial injury
Acute on chronic metabolic acidosis
CKD IV
s/p living, unrelated renal transplant RLQ at [facility] 01/15/20
previously on PD
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
was not taking mycophenolate 2020 until 2022, he forgot
Chronic immunosuppressed state
Carotid artery disease s/p B/L carotid endarterectomy 2017
Type 2 diabetes
Diabetic nephropathy
Hypertension
Hypercholesterolemia
Hyponatremia, chronic
Depression
Anemia of chronic disease
Severe thickening of distal esophagus by imaging
Lexiscan nuclear stress test 08/17/2023: medium size predominantly fixed RCA distribution defect with small predominantly reversible anterior apical and apical defects with EF 42%
Echo 07/31/2023: EF 54%, no regional wall motion abnormalities noted, mild MR
Echo 01/19/2024: EF 30 to 35%, global hypokinesis with regional variability, stage II diastolic dysfunction, moderate TR, estimated PAP 48 mmHg
Echo 03/08/24: EF 40 to 45%, mild MR/TR
Plan:-
-Weight is down significantly. Creatinine up to 3.2. Will switch to Lasix 80 mg p.o. twice daily.
-proBNP greater than 27,000. Chest x-ray improved from prior from 01/2024, however with evidence of mild CHF. Dry weight 175 pounds per patient
-Appears comfortable. On room air sats 97%
-Repeat echo with improved EF of 45%. Blood pressure also improved
-Continue Coreg, hydralazine, Imdur. Increase Coreg to 12.5 mg p.o. twice daily. no POLLY/ARB/ARNI, Aldactone, or SGLT2 inhibitor given renal function
-Troponin 0.06 and flat. No complaints of chest pain. EKG with lateral T wave inversion. Concern for underlying coronary disease, being medically managed due to chronic kidney disease. Continue aspirin, pravastatin, Zetia
Progress Note - Buffing Machine Operator
Subjective
Date of Service: March 09, 2024
Feeling better. Has diuresed well.
Objective
Labs:
03/08/24 06:26
03/09/24 06:09
Labs
Hgb 9.1 g/dL (13.0-18.0) L 03/08/24 06:26
Hct 27.2 % (39.0-52.0) L 03/08/24 06:26
Plt Count 154 10^3/uL (130-400) 03/08/24 06:26
Sodium 129 mmol/L (135-145) L 03/09/24 06:09
Potassium 3.9 mmol/L (3.5-5.1) 03/09/24 06:09
BUN 43 mg/dl (9-20) H 03/09/24 06:09
Creatinine 3.2 mg/dL (0.7-1.3) H 03/09/24 06:09
Glucose 155 mg/dl (70-99) H 03/09/24 06:09
Troponins
03/07/24 03/07/24 03/07/24
13:24 17:15 19:38
Troponin I 0.058 H* Cancelled 0.061 H*
03/07/24 03/08/24 03/08/24
23:15 00:57 06:26
Troponin I Cancelled 0.062 H* 0.062 H*
03/08/24
13:07
Troponin I 0.061 H*
Vital Signs and I&O:
Vital Signs
Temp Pulse Resp BP Pulse Ox
98.3 F 72 16 110/69 95
03/09/24 11:45 03/09/24 11:45 03/09/24 11:45 03/09/24 11:45 03/09/24 11:45
Vital Signs
Temp Pulse Resp BP Pulse Ox
98.3 F 72 16 110/69 95
03/09/24 11:45 03/09/24 11:45 03/09/24 11:45 03/09/24 11:45 03/09/24 11:45
Intake & Output
03/07/24 03/08/24 03/09/24 03/10/24
06:59 06:59 06:59 06:59
Intake Total 960 / 960 1440 / 1440
Output Total 1650 / 1650 3275 / 3275
Balance -690 / -690 -1835 / -1835
Physical Exam
Physical Exam
GEN: No distress, awake, Ox3
HEENT: supple, anicteric, mmm
LUNGS: CTA, no wheezes/rales
CV: Reg, S1/S2, 1/6 syst LSB, no gallop
ABD: soft, BS+, NT/ND
EXT: No edema
NEURO: Gross non-focal
SKIN: No rash
--- NOTE | 2024-03-09 15:05 | W.PN.HOSP.TC ---
Today's Communication/Plan
-
see note
f/u BMP
possible d/c in 24hrs
Assessment / Plan
Assessment / Plan
Acute on Chronic HFrEF
-Echo Jan 2024: Moderately reduced left ventricular systolic function with global hypokinesis and EF 30-35%. Stage II diastolic dysfunction.
-Monitor Is&Os and Daily Weights
-Clinically feeling better today, denied PND. No exertional dyspnea
-weight trended down and 82.5kg today, was 84.3kg yesterday
-Cr 3.2, not truly far out from baseline, hold afternoon Lasix till nephro evaluation
Renal Transplant in Feb 2020
-Continue prednisone and mycophenolate
-on belatacept infusion as well.
Chronic Hyponatremia
-paradoxically Na low to 129 despite appropriate response with diuretics
-increasing fluid restriction to 40oz
CKD Stage IV
-cr remains close to baseline
-nephro following and help appreciated .
Acute on Chronic Metabolic Acidosis - Improved
-oral bicarb dose increased at admission, Hco3 24 today
Troponin elevation
-Nonischemic cardiomyopathy related.
Diabetes Mellitus, Type II
-Continue Tradjenta
-Continue Lantus and Novolog
-Monitor sugars and continue coverage insulin
Essential Hypertension
-Continue Coreg, Hydralazine
Hyperlipidemia
-Continue Zetia and pravastatin
ASCVD s/p Bilateral Carotid Endarterectomy
-Continue aspirin
Anemia of Chronic Disease
-Hgb slightly lower than baseline
-Continue to monitor following diuresis
Depression
-Continue Lexapro
DVT proph: SC Heparin
Code Status: Full Code
care discussed with nephrology
Anticipated Discharge: Within 24 hours
Subjective/Interval History
-
Date of Service: March 09, 2024
no issues overnight
denies problem overnight
Objective Data
-
Labs:
Laboratory Results
03/09/24
06:09
Sodium 129 L
Potassium 3.9
Chloride 93 L
Carbon Dioxide 24
BUN 43 H
Creatinine 3.2 H
Glucose 155 H
Calcium 8.8
Vital Signs:
Vital Signs
Temp Pulse Resp BP Pulse Ox
98.3 F 72 16 110/69 95
03/09/24 11:45 03/09/24 11:45 03/09/24 11:45 03/09/24 11:45 03/09/24 11:45
I&O
03/08/24 03/09/24 03/10/24
06:59 06:59 06:59
Intake Total 960 / 960 1440 / 1440
Output Total 1650 / 1650 3275 / 3275
Balance -690 / -690 -1835 / -1835
Review of Systems
-
Respiratory: Reports No Symptoms
Cardiac: Reports No Symptoms
Abdomen/GI: Reports No Symptoms
Physical Exam
-
General: No Apparent Distress and Comfortable
HEENT: Negative Oxygen
Respiratory: Clear to Auscultation
Cardiac: Regular Rhythm and S1/S2; Negative Murmur or Rub
GI: Soft, Nontender and Nondistended
Musculoskeletal: No Edema
Neuro: Awake, Alert, Oriented, No Motor Deficits and Nonfocal/Grossly Intact
Psych: Calm
--- NOTE | 2024-03-09 15:31 | W.PN.NEPH.PH ---
Today's Communication / Plan
-
Holding IV Lasix in setting of rising creatinine
Transition to p.o. Lasix 80 mg twice daily
Grossly nonoliguric
Assessment/Plan
-
Assessment:
Acute HFpEF
Renal transplant (02/18/20) [place]-living unrelated
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
Hypertension with history of orthostasis
CKD4-last cr 3.02 at [place] visit -Dr Leon
met acidosis
Type 2 diabetes
Hypercholesterolemia
Depression
Anemia
Hyponatremia
Severe thickening of distal esophagus by imaging
Plan:
Follow BMP
Lasix 80 mg IV twice daily (would withhold IV Lasix as creatinine rising and profoundly nonoliguric), weights down by 7 kg), cardiology swithced to po lasix 80mg BID
Creatinine up to 3.2, urine output greater than 3 L
Continue Myfortic and prednisone
Hyponatremia worsening despite recent addition of 1500 cc/day fluid restriction
Increase of oral bicarbonate to twice daily with improvement
Clinically does not appear to be in decompensated heart failure and right heart catheterization may be beneficial in the future (Laying supine on room air without distress)
-
-
Date of Service: March 09, 2024
CC / HPI / ROS
-
Chief Complaint:
Chronic kidney disease stage 4
History of Present Illness:
Hyponatremia at 129 on fluid restriction
Creatinine up to 3.2
Metabolic acidosis improving with oral bicarbonate
Hemodynamically
Review of Systems:
Nonoliguric
Weights down
No shortness of breath
Labs
-
Labs:
WBC 10.4 10^3/uL (4.8-10.8) 03/08/24 06:26
RBC 3.06 10^6/uL (4.70-6.10) L 03/08/24 06:26
Hgb 9.1 g/dL (13.0-18.0) L 03/08/24 06:26
Hct 27.2 % (39.0-52.0) L 03/08/24 06:26
Plt Count 154 10^3/uL (130-400) 03/08/24 06:26
Sodium 129 mmol/L (135-145) L 03/09/24 06:09
Potassium 3.9 mmol/L (3.5-5.1) 03/09/24 06:09
Chloride 93 mmol/L (98-107) L 03/09/24 06:09
Carbon Dioxide 24 mmol/L (22-30) 03/09/24 06:09
BUN 43 mg/dl (9-20) H 03/09/24 06:09
Creatinine 3.2 mg/dL (0.7-1.3) H 03/09/24 06:09
eGFR 21.07 03/09/24 06:09
Glucose 155 mg/dl (70-99) H 03/09/24 06:09
Calcium 8.8 mg/dl (8.4-10.2) 03/09/24 06:09
Vde-T-Dcwbjulhnfh Pept > 29332 pg/ml 03/07/24 13:24
Albumin 3.7 g/dl (3.5-5.0) 03/07/24 13:24
Physical Exam
-
Vital Signs:
Vital Signs
Temp Pulse Resp BP Pulse Ox
98.3 F 72 16 110/69 95
03/09/24 11:45 03/09/24 11:45 03/09/24 11:45 03/09/24 11:45 03/09/24 11:45
Cardiovascular:: Regular rate and rhythm
Respiratory:: Bilateral: CTA
Lung Excursion:: Normal
Abdomen:: Nontender and Soft
Extremity Edema:: None: Bilateral:
Oreilly Catheter: No
[2024-03-09 15:52] VITALS: BP 132/76
[2024-03-09] MEDS: LASIX 80 MG PO (16:23)
[2024-03-09 16:54] LABS: Glucose - Point of Care 225 mg/dl (70-99)
[2024-03-09] MEDS: PRAVACHOL 10 MG PO (21:20)
[2024-03-09] MEDS: NEURONTIN 300 MG PO (21:20)
[2024-03-09 21:36] LABS: Glucose - Point of Care 171 mg/dl (70-99)
[2024-03-09 23:28] VITALS: BP 146/69
[2024-03-10 03:19] VITALS: BP 165/81
[2024-03-10 06:00] VITALS: BMI 27.1
[2024-03-10 07:12] VITALS: BP 166/95
[2024-03-10] MEDS: LEXAPRO 20 MG PO (07:45)
[2024-03-10] MEDS: JANUVIA 25 MG PO (07:45)
[2024-03-10] MEDS: DELTASONE 5 MG PO (07:46)
[2024-03-10] MEDS: APRESOLINE 100 MG PO (07:46)
[2024-03-10] MEDS: COREG 12.5 MG PO (07:46)
[2024-03-10] MEDS: SODIUM BICARBONATE 650 MG PO (07:46)
[2024-03-10] MEDS: ZETIA 10 MG PO (07:46)
[2024-03-10] MEDS: IMDUR (EXTENDED RELEASE) 60 MG PO (07:46)
[2024-03-10] MEDS: DETROL LA 4 MG PO (07:46)
[2024-03-10] MEDS: LASIX 80 MG PO (07:46)
[2024-03-10] MEDS: LOW STRENGTH ASPIRIN 81 MG PO (07:46)
[2024-03-10] MEDS: MYFORTIC DELAYED REL. 360 MG PO (07:46)
[2024-03-10] MEDS: PROTONIX 40 MG PO (07:46)
[2024-03-10] MEDS: HEPARIN 5000 UNITS SC (07:46)
[2024-03-10 07:52] LABS: Glucose - Point of Care 171 mg/dl (70-99)
[2024-03-10 07:53] LABS: Blood Urea Nitrogen 50 mg/dl (9-20); Calcium 8.7 mg/dl (8.4-10.2); Carbon Dioxide 23 mmol/L (22-30); Chloride 92 mmol/L (98-107); Estimated Creatinine Clearance 24 ml/min; Glucose 147 mg/dl (70-99); Potassium 3.7 mmol/L (3.5-5.1); Sodium 129 mmol/L (135-145); eGFR 21.07
[2024-03-10] MEDS: NOVOLOG FLEXPEN 3 UNITS SC (08:09)
[2024-03-10] MEDS: NOVOLOG FLEXPEN-LOW RESISTANCE 1 UNITS SC (08:09)
[2024-03-10 08:15] VITALS: BMI 26.1
--- NOTE | 2024-03-10 09:06 | W.PN.UPDATE ---
Update Note
Progress Note Update
Stable cv status
Tele negative
Cr stable
Is and Os negative and wt is down
Outpt oral Lasix dosing as per nephrology
Will arrange outpt cardiac follow up
Please recall if needed
--- NOTE | 2024-03-10 11:05 | W.PN.NEPH.PH ---
Today's Communication / Plan
-
Stable for discharge
BMP to primary ticket scheduler at [facility] system next week
Assessment/Plan
-
Assessment:
Acute HFpEF
Renal transplant (02/18/20) [place]-living unrelated
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
Hypertension with history of orthostasis
CKD4-last cr 3.02 at [place] visit -Dr Leon
met acidosis
Type 2 diabetes
Hypercholesterolemia
Depression
Anemia
Hyponatremia
Severe thickening of distal esophagus by imaging
Plan:
Follow BMP
Stable for discharge on Lasix 80 mg twice daily
Creatinine stable at 3.2, urine output greater than 3.5 L
Continue Myfortic and prednisone
Hyponatremia stable at 129 needs to adhere to FR at discharge
Increase of oral bicarbonate to twice daily with improvement of metabolic acidosis
Clinically does not appear to be in decompensated heart failure and right heart catheterization may be beneficial in the future (Laying supine on room air without distress)
-
-
Date of Service: March 10, 2024
CC / HPI / ROS
-
Chief Complaint:
Chronic kidney disease stage 4
History of Present Illness:
Hyponatremia at 129 on fluid restriction
Creatinine stable at 3.2
Metabolic acidosis improving with oral bicarbonate
Hemodynamically
Review of Systems:
Nonoliguric
Weights down
No shortness of breath
Labs
-
Labs:
WBC 10.4 10^3/uL (4.8-10.8) 03/08/24 06:26
RBC 3.06 10^6/uL (4.70-6.10) L 03/08/24 06:26
Hgb 9.1 g/dL (13.0-18.0) L 03/08/24 06:26
Hct 27.2 % (39.0-52.0) L 03/08/24 06:26
Plt Count 154 10^3/uL (130-400) 03/08/24 06:26
Sodium 129 mmol/L (135-145) L 03/10/24 06:04
Potassium 3.7 mmol/L (3.5-5.1) 03/10/24 06:04
Chloride 92 mmol/L (98-107) L 03/10/24 06:04
Carbon Dioxide 23 mmol/L (22-30) 03/10/24 06:04
BUN 50 mg/dl (9-20) H 03/10/24 06:04
Creatinine 3.2 mg/dL (0.7-1.3) H 03/10/24 06:04
eGFR 21.07 03/10/24 06:04
Glucose 147 mg/dl (70-99) H 03/10/24 06:04
Calcium 8.7 mg/dl (8.4-10.2) 03/10/24 06:04
Bqk-S-Yjyxddqhghq Pept > 21758 pg/ml 03/07/24 13:24
Albumin 3.7 g/dl (3.5-5.0) 03/07/24 13:24
Physical Exam
-
Vital Signs:
Vital Signs
Temp Pulse Resp BP Pulse Ox
98.1 F 72 18 166/95 96
03/10/24 07:12 03/10/24 07:12 03/10/24 07:12 03/10/24 07:12 03/10/24 07:12
Cardiovascular:: Regular rate and rhythm
Respiratory:: Bilateral: CTA
Lung Excursion:: Normal
Abdomen:: Nontender and Soft
Bowel Sounds:: Normal
Extremity Edema:: None: Bilateral:
Oreilly Catheter: No
--- NOTE | 2024-03-10 11:19 | CM ---
CM met with pt bedside
DC order noted
Plan for home with [facility]
IMM verbally reviewed- copy provided
Discharge Disposition- home [facility]- spouse transport
[2024-03-10 11:27] VITALS: BP 118/67
[2024-03-10 12:02] LABS: Glucose - Point of Care 283 mg/dl (70-99)
--- NOTE | 2024-03-10 13:28 | W.PN.HOSP.TC ---
Today's Communication/Plan
-
d/c home
Assessment / Plan
Assessment / Plan
Acute on Chronic HFrEF
-Echo Jan 2024: Moderately reduced left ventricular systolic function with global hypokinesis and EF 30-35%. Stage II diastolic dysfunction.
-Monitor Is&Os and Daily Weights
-Cr stabilized around 3.2, f/u BMP script provided
-Discussed with cards/nephro and cleared to be discharged on oral lasix 80mg/bid
Renal Transplant in Feb 2020
-Continue prednisone and mycophenolate
-on belatacept infusion as well.
Chronic Hyponatremia
-paradoxically Na low to 129 despite appropriate response with diuretics
-increasing fluid restriction to 40oz
CKD Stage IV
-cr remains close to baseline
-nephro following and help appreciated .
Acute on Chronic Metabolic Acidosis - Improved
-discharge on home dose of oral bicarb
Troponin elevation
-Nonischemic cardiomyopathy related.
Diabetes Mellitus, Type II
-Continue Tradjenta
-Continue Lantus and Novolog
-Monitor sugars and continue coverage insulin
Essential Hypertension
-Continue Coreg, Hydralazine
Hyperlipidemia
-Continue Zetia and pravastatin
ASCVD s/p Bilateral Carotid Endarterectomy
-Continue aspirin
Anemia of Chronic Disease
-Hgb slightly lower than baseline
-Continue to monitor following diuresis
Depression
-Continue Lexapro
DVT proph: SC Heparin
Code Status: Full Code
More than 30 minutes spent in discharge including
Final examination of the patient
Summarizing hospital stay
Instructions for continuing care to all relevant caregivers
Preparation of discharge records, prescriptions, and referral forms
Total time spent (in minutes): 38 mins
Anticipated Discharge: Today
Subjective/Interval History
-
Date of Service: March 10, 2024
breathing significantly improved
denies of dyspnea on exertion
no PND reported
Objective Data
-
Labs:
Laboratory Results
03/10/24
06:04
Sodium 129 L
Potassium 3.7
Chloride 92 L
Carbon Dioxide 23
BUN 50 H
Creatinine 3.2 H
Glucose 147 H
Calcium 8.7
Vital Signs:
Vital Signs
Temp Pulse Resp BP Pulse Ox
97.7 F 70 18 118/67 96
03/10/24 11:27 03/10/24 11:27 03/10/24 11:27 03/10/24 11:27 03/10/24 11:27
I&O
03/09/24 03/10/24 03/11/24
06:59 06:59 06:59
Intake Total 1440 / 1440 940 / 940
Output Total 3275 / 3275 3500 / 3500
Balance -1835 / -1835 -2560 / -2560
Review of Systems
-
Respiratory: Reports No Symptoms
Cardiac: Reports No Symptoms
Abdomen/GI: Reports No Symptoms
Physical Exam
-
General: No Apparent Distress and Comfortable
HEENT: Negative Oxygen
Respiratory: Clear to Auscultation
Cardiac: Regular Rhythm and S1/S2; Negative Murmur or Rub
GI: Soft, Nontender and Nondistended
Musculoskeletal: No Edema
Neuro: Awake, Alert, Oriented, No Motor Deficits and Nonfocal/Grossly Intact
Psych: Calm
== END 2024-03-10 12:42 | disposition home health service (06) | DRG 291 ==
LOC: 4 WEST ACU 15:29
PROVIDERS: Physician Assistant Medical; ADMITTING PHYSICIAN Hospitalist; ATTENDING PHYSICIAN Hospitalist; CONSULT PHYSICIAN Internal Medicine Cardiovascular Disease; CONSULT PHYSICIAN Specialist; EMERGENCY PHYSICIAN Student in an Organized Health Care Education/Training Program; FAMILY PHYSICIAN Internal Medicine
DX: I13.0 Hypertensive heart and chronic kidney disease with heart failure and stage 1 through stage 4 chronic kidney disease, or unspecified chronic kidney disease (principal); I50.23 Acute on chronic systolic (congestive) heart failure; D84.821 Immunodeficiency due to drugs; N18.4 Chronic kidney disease, stage 4 (severe); E87.1 Hypo-osmolality and hyponatremia; E87.21 Acute metabolic acidosis; E87.22 Chronic metabolic acidosis; Z94.0 Kidney transplant status; D63.1 Anemia in chronic kidney disease; E11.22 Type 2 diabetes mellitus with diabetic chronic kidney disease; E11.40 Type 2 diabetes mellitus with diabetic neuropathy, unspecified; E11.51 Type 2 diabetes mellitus with diabetic peripheral angiopathy without gangrene; F32.A Depression, unspecified; I5A Non-ischemic myocardial injury (non-traumatic); E78.00 Pure hypercholesterolemia, unspecified; M19.90 Unspecified osteoarthritis, unspecified site; N40.0 Benign prostatic hyperplasia without lower urinary tract symptoms; Z79.4 Long term (current) use of insulin; Z79.60 Long term (current) use of unspecified immunomodulators and immunosuppressants; Z79.82 Long term (current) use of aspirin; Z79.899 Other long term (current) drug therapy; Z79.84 Long term (current) use of oral hypoglycemic drugs; Z91.119 Patient's noncompliance with dietary regimen due to unspecified reason; Z87.891 Personal history of nicotine dependence
CPT/HCPCS: 93308; 71046; 80048; 80053; 82962; 83036; 83880; 84484; 85025; 85027; 87070; 87147; 93005; 99285

== ENCOUNTER → 2024-04-08 11:56 | Outpatient (REF) | payer MEDICARE, OTHER, SELFPAY ==
[2024-04-08 17:03] LABS: Blood Urea Nitrogen 65 mg/dl (9-20); Calcium 8.9 mg/dl (8.4-10.2); Carbon Dioxide 21 mmol/L (22-30); Chloride 92 mmol/L (98-107); Glucose 313 mg/dl (70-99); Potassium 4.5 mmol/L (3.5-5.1); Sodium 131 mmol/L (135-145); eGFR 23.57
== END ==
LOC: HWLAB 11:56
PROVIDERS: ATTENDING PHYSICIAN Internal Medicine Cardiovascular Disease; FAMILY PHYSICIAN Internal Medicine
DX: I10 Essential (primary) hypertension (principal)
CPT/HCPCS: 36415; 80048

== ENCOUNTER → 2024-05-02 08:11 | Outpatient (REF) | payer MEDICARE, OTHER, SELFPAY | LOC: RCS 08:11 | PROVIDERS: ATTENDING PHYSICIAN Internal Medicine Cardiovascular Disease; FAMILY PHYSICIAN Internal Medicine | DX: I50.32 Chronic diastolic (congestive) heart failure (principal) | CPT/HCPCS: 93306 ==

== ENCOUNTER 2024-05-20 08:45 | Day surgery (SDC) | payer MEDICARE, OTHER, SELFPAY ==
--- NOTE | 2024-05-15 14:13 | PTCARENOTE ---
Abn ECG, Dr. Licea notified, no new requests.
[2024-05-20] VITALS (10 sets, daily range): BP systolic 140–210; BP diastolic 66–104; BMI 26.3
[2024-05-20 09:30] LABS: Hematocrit 27.2 % (39.0-52.0); Hemoglobin 9.5 g/dL (13.0-18.0); Mean Corp Hgb Conc. 34.9 g/dL (33.0-37.0); Mean Corpuscular Volume 88.9 fL (80.0-94.0); Mean Platelet Volume 9.6 fL (7.4-10.4); Platelet Count 152 10^3/uL (130-400); Red Blood Cell Count 3.06 10^6/uL (4.70-6.10); White Blood Cell Count 6.7 10^3/uL (4.8-10.8)
[2024-05-20 09:34] LABS: APTT 24.3 Sec (23.4-35.0); PT 14.5 Sec (11.4-14.6)
[2024-05-20 09:41] LABS: Blood Urea Nitrogen 69 mg/dl (9-20); Calcium 8.8 mg/dl (8.4-10.2); Carbon Dioxide 24 mmol/L (22-30); Chloride 96 mmol/L (98-107); Estimated Creatinine Clearance 20 ml/min; Glucose 161 mg/dl (70-99); Potassium 4.7 mmol/L (3.5-5.1); Sodium 133 mmol/L (135-145); eGFR 17.59
[2024-05-20] MEDS: NSS 500 IV (09:56)
[2024-05-20] MEDS: BACTROBAN NASAL 1 GRAM NASAL (09:56)
[2024-05-20] MEDS: PERIDEX 0.12% ORAL RINSE 15 ML PO (09:56)
[2024-05-20] MEDS: TRANDATE 200 MG PO (10:21)
[2024-05-20] MEDS: APRESOLINE 100 MG PO (10:21)
--- NOTE | 2024-05-20 11:02 | PTCARENOTE ---
Follow up BP after labetalol and hydralazine given (see aug) 210. Dr Anuja gonzalez texted- no further treatment at this time.
--- NOTE | 2024-05-20 11:06 | W.SUR.PREOP ---
Pre-Operative Surgical Note
-
I have examined this patient prior to the performance of the scheduled procedure.
The patient's condition is unchanged from the time of the current History and
Physical and the patient is able to undergo the scheduled procedure.
--- NOTE | 2024-05-20 12:57 | W.SUR.POST ---
Surgical Immediate Post Op
Note
Pre Op Diagnosis: End-stage renal disease
Post Op Diagnosis: Same
Procedure Performed: Left upper extremity radiocephalic AV fistula creation
Primary Surgeon: Yovani
Assist: Jordan HUIZAR
Anesthesia: LMA
Estimated Blood Loss: 5 cc
Fluids: See anesthesia flowsheet
Drains/Shunts: None
Specimens/Cultures: None
Doppler/Duplex/Angio (Y/N): Y
Complications: None
Operative Findings: + Thrill
[2024-05-20 13:23] LABS: Glucose - Point of Care 176 mg/dl (70-99)
--- NOTE | 2024-05-20 13:41 | OR.RPT ---
Operative Report
Operative Report
PROCEDURE DATE: 05/20/2024
Preoperative diagnosis: Chronic kidney disease, status post transplantation, failing transplant.
Postoperative diagnosis: Same
Procedure: Left upper extremity (antecubital fossa) radiocephalic arteriovenous fistula creation
Surgeon: Yovani
Election Supervisor: COLTON Ortega, required for all aspects of procedure including assistance with traction/countertraction, following of suture line, assistance with closure.
Complications: None
Anesthesia: General
Indications for procedure:
History of chronic kidney disease/end-stage renal disease. Status post kidney transplantation. Concern for failing of the transplant, and therefore referred for fistula creation. Risk/benefit/alternatives all fully discussed. Patient understood
and wished to proceed.
Description of procedure:
Patient was identified brought to the operating room placed on the table in supine position. After induction of anesthesia, I used ultrasound to examine/map his left upper extremity veins. The wrist cephalic vein appeared reasonable, but the
radial artery distally had significant calcific plaque and possible stenosis based on my ultrasound assessment, and therefore I felt concerned about using that for an inflow source. Examining the antecubital fossa, there were 2 arterial branches, 1
larger and 1 slightly smaller. When I interrogated further, I noted that the patient had a high takeoff of the radial artery just distal to the axilla. And therefore the more superficial of these branches was the radial artery. I felt that this
would be suitable to use as an inflow source, and may diminish the incidence of steal. After the adequate administration of anesthesia and perioperative antibiotics he was prepped and draped in the standard surgical fashion. A standard
preoperative timeout was undertaken and everybody was in agreement the plan. A transverse incision was made in the proximal volar aspect of the forearm just distal to the antecubital fossa. This was carried through skin subcutaneous tissue. The
antecubital extension of the cephalic vein was identified and carefully dissected away from surrounding structures and great care to avoid any injury to structures. Any branches were ligated between silk ties and divided. As such I was able to
mobilize a suitable length of cephalic vein. Once I had done this I then deepened my dissection in the medial aspect of the incision site through the fascial layer. The slightly more superficial radial artery was carefully identified and carefully
dissected away from surrounding structures take great care to avoid injury to structures. I passed a vessel loop around it proximally and distally. Note, to palpation I could palpate the deeper main brachial/ulnar artery. However I felt the more
superficial radial artery was reasonable to use. Next I gave the patient 3000 units of intravenous heparin. I then ligated the cephalic vein distally in my field with a silk tie and a clip. I then transected it. I distended under heparinized
saline. It distended very well. I marked the anterior surface under distention to avoid any kinking or twisting. The vein was suitable size but just to be sure I ran a 3 mm dilator through which passed without any difficulty whatsoever. Next, I
gently clamped the artery proximally distally with Yasargil clips. I then made an arteriotomy with 11 blade extended it using a Gao scissor. I spatulated the cephalic vein and sewed an end to side anastomosis using a running 6-0 Prolene suture
(four-quadrant technique). Prior to completing and tying down my suture line I backbled and forebled the [place] artery. Next I released my Vesseloops on the artery. There was an excellent thrill in the fistula. There was a palpable pulse at the
wrist and the radial artery. At this point I was very satisfied. I irrigated. I achieved and confirmed full hemostasis. We then closed in layers using 3-0 Vicryl deep dermal layer followed by 4-0 Monocryl subcuticular stitch. Dermabond was
applied. The patient tolerated the procedure well.
== END 2024-05-20 15:05 | disposition home or self-care (01) ==
LOC: CATH 08:45
PROVIDERS: ATTENDING PHYSICIAN Surgery Vascular Surgery; FAMILY PHYSICIAN Internal Medicine; OTHER PHYSICIAN Internal Medicine Cardiovascular Disease
DX: I13.2 Hypertensive heart and chronic kidney disease with heart failure and with stage 5 chronic kidney disease, or end stage renal disease (principal); E11.22 Type 2 diabetes mellitus with diabetic chronic kidney disease; N18.6 End stage renal disease; I50.9 Heart failure, unspecified; Z79.4 Long term (current) use of insulin; E78.5 Hyperlipidemia, unspecified; E11.319 Type 2 diabetes mellitus with unspecified diabetic retinopathy without macular edema; D51.0 Vitamin B12 deficiency anemia due to intrinsic factor deficiency; F32.A Depression, unspecified; I95.1 Orthostatic hypotension; Z79.82 Long term (current) use of aspirin; Z79.899 Other long term (current) drug therapy; Z79.52 Long term (current) use of systemic steroids
CPT/HCPCS: 36821; 80048; 82962; 85027; 85610; 85730; 86850; 86900; 86901

== ENCOUNTER 2024-06-11 11:31 | Emergency (ER) | payer MEDICARE, OTHER, SELFPAY ==
[2024-06-11 11:37] VITALS: BMI 25.8
[2024-06-11 13:40] VITALS: BP 138/86
--- NOTE | 2024-06-11 16:31 | ED.MUSCINJ ---
HPI-Injury
General
Chief Complaint: Musculo-Skeletal Complaint
Source: patient and records
Exam Limitations: none
Time Seen by Provider: 06/11/24 15:53
Nursing documentation reviewed up to this point in time: agreed with
History of Present Illness-Injury
Is this injury a work related problem?: No
Is pt an associate of [facility]?: No
Initial Injury comments:
64-year-old male chronic renal insufficiency not yet on dialysis had a fistula placed in the left upper extremity few weeks ago he had midline neck pain predating the procedure he has had known arthritis, been on no meds, sent in by PCP to get his
pain under control, no fevers no nausea or vomiting, does tell me is not making as much urine as usual, no chest pain or shortness of breath, there has been a prescription sent to his pharmacy for pain meds reportedly, has had no falls, no head
strike, no trouble swallowing no fevers no arm or leg weakness
Past History
Past History
ED Past Medical History: CHF, HTN, NIDDM, Renal failure and Other (renal transplant)
ED Past Surgical History: Urological (Kidney transplant 2019) and Other (Fistula)
Social History
Tobacco: Former smoker
Alcohol: Daily (Wine)
Drug: None
Personal:
Living: with family
Employment: Employed
Review of Systems
Review of Systems
All Other Systems: Not applicable
Constitutional: Denies fever or fatigue
Respiratory: Reports no symptoms
Cardiac: Reports no symptoms
ABD/GI: Reports no symptoms
: Reports other (Decreased urine)
Musculoskeletal: Reports back pain (Upper back and neck pain)
Phy Exam
Physical Exam
Physical Exam:
Physical Exam
General: 64 male nontoxic looks mildly uncomfortable due to pain
Neck: midline tenderness C5-T1
Heart: regular
Lungs: no acute respiratory distress. clear bilaterally
Abdomen: Nontender
Neuro: alert and oriented. 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
Skin: no rash
Psychiatric: well kept. interactive and cooperative
Extremities: Fistula in the left upper
Injury Course
Orders/Labs/Results
Orders:
Orders
06/11/24 16:02
HYDROmorphone [Dilaudid] 1 mg IV NOW STA
CR Cervical Spine 2 or 3 Vw Urgent
Comment:
Reason For Exam: pain no trauma
06/11/24 16:34
Complete Blood Count/With Diff Urgent
Comprehensive Metabolic Panel Urgent
Abnormal Lab Results
06/11/24
16:34
RBC 3.29 L 10^6/uL
(4.70-6.10)
Hgb 10.0 L g/dL
(13.0-18.0)
Hct 29.2 L %
(39.0-52.0)
Abs Immat Gran (auto) 0.1 H 10^3/uL
(0-0.05)
Absolute Lymphs (auto) 0.3 L 10^3/uL
(1.2-3.4)
Immature Gran % 1.4 H %
(0-0.5)
Neutrophils % 85.0 H %
(42.2-75.2)
Lymphocytes % 5.1 L %
(20.5-51.1)
Sodium 126 L mmol/L
(135-145)
Chloride 94 L mmol/L
(98-107)
Carbon Dioxide 19 L mmol/L
(22-30)
BUN 51 H mg/dl
(9-20)
Creatinine 3.5 H mg/dL
(0.7-1.3)
Glucose 160 H mg/dl
(70-99)
06/11/24 16:34
06/11/24 16:34
MDM/Problems Addressed
Differential Diagnosis Includes:
Arthritis, had no convincing evidence of occult infection or discitis, symptoms predated his surgical procedure, prior CT cervical spine report noted patient denies any trauma,
MDM/Problems Addressed:
Neck pain
Chronic conditions affecting care: Kidney disease
Acute Exacerbation and/or Progression of Chronic Illness: Neurological disorder
*Radiology
Radiology exam reviewed: preliminary read by ED provider
*Pulse Oximetry
Patient hypoxic: no
*Critical Care Note
Total Time (30-74mins, 75-104mins- exclusive of procedures): Not Applicable
Update Note
Update Note:
Update labs noted, not too far from his baseline, no urgent hemodialysis needed apparently, x-ray report reviewed, PDMP noted no narcotics in the prescription I did send a prescription for oxycodone to his pharmacy
ED Attending Note
-
Portions of this chart may have been created with voice recognition software.� Occasional wrong word or��sound alike� substitutions may have occurred due to the inherent limitations of voice recognition software.
Discharge Plan
Departure
Patient with high blood pressure during this ER visit?: No
Discharge Problem:
Neck pain
Instructions: Muscle and Bone Pain (DC)
Prescriptions:
New
oxycodone 5 mg tablet
5 mg PO Q6H PRN (Reason: Pain) Qty: 14 0RF
No Action
Tradjenta 5 MG tablet
5 mg PO DAILY
gabapentin 300 MG capsule
300 mg PO HS
aspirin 81 MG tablet,chewable
81 mg PO DAILY
prednisone 5 mg Tablet
5 mg PO DAILY
acetaminophen [Tylenol Extra Strength] 500 mg Tablet
1,000 mg PO PRN PRN (Reason: mild pain)
mycophenolate sodium 180 mg tablet,delayed release (DR/EC)
180 mg PO TID
pantoprazole 40 mg Tablet,Delayed Release (Dr/Ec)
40 mg PO DAILY
ezetimibe 10 mg Tablet
10 mg PO DAILY
carvedilol 6.25 mg Tablet
6.25 mg PO BID Qty: 60 0RF
sodium bicarbonate 650 mg Tablet
650 mg PO DAILY Qty: 0 0RF
insulin aspart U-100 [Novolog FlexPen U-100 Insulin] 300 UNITS/3 ML insulin pen
3 unit SC MEALS Qty: 0 0RF
insulin glargine [Lantus Solostar U-100 Insulin] 300 UNITS/3 ML insulin pen
5 unit SC DAILY@1200 Qty: 0 0RF
furosemide 80 mg Tablet
80 mg PO BID Qty: 60 0RF
isosorbide dinitrate 30 mg Tablet
30 mg PO DAILY
escitalopram oxalate [Lexapro] 20 mg Tablet
20 mg PO DAILY
insulin aspart U-100 [Novolog FlexPen U-100 Insulin] 100 unit/mL (3 mL) Insulin Pen
3 unit SC DAILY
belatacept 250 mg Recon Soln
250 mg IV Q30D
labetalol 200 mg Tablet
200 mg PO BID
metolazone 5 mg Tablet
5 mg PO DAILY PRN (Reason: Weight >182 lbs)
Rx Instructions:
1 tablet 30 minutes before lasix as needed for weight greater than 182 lbs, no more than twice a week
hydralazine 100 mg Tablet
100 mg PO BID
pravastatin 40 mg Tablet
40 mg PO DAILY
sucralfate 1 gram Tablet
1 g PO BID
polysaccharide iron complex 150 mg iron Capsule
150 mg PO DAILY
famotidine 40 mg Tablet
40 mg PO DAILY
spironolactone 25 mg Tablet
25 mg PO DAILY
epinephrine [EpiPen 2-Manny] 0.3 mg/0.3 mL Auto-Injector
0.3 mg IM ONCE PRN (Reason: bee sting)
mirabegron [Myrbetriq] 50 mg Tablet Extended Release 24 Hr
50 mg PO DAILY
Referrals:
Kena Silva CRNP [Family Provider] -
Interventions
Interventions:
*Risk Screen - Suicide Last Done: 06/11/24 11:37
*General Assessment Last Done: 06/11/24 16:40
*Neglect/Abuse Screening Last Done: 06/11/24 11:37
*ED COVID-19 Vaccine History Last Done: 06/11/24 11:37
ED-Musculoskeletal Assessment Last Done: 06/11/24 16:39
Discharge Date and Time
Print Language: CHINESE
[2024-06-11] MEDS: DILAUDID 1 MG IV (16:37)
[2024-06-11 16:50] LABS: % Basophils 0.6 % (0-2); % Eosinophils 0.5 % (0-6); % Immature Granulocytes 1.4 % (0-0.5); % Lymphocytes 5.1 % (20.5-51.1); % Monocytes 7.4 % (1.7-9.3); Absolute Immature Granulocytes 0.1 10^3/uL (0-0.05); Absolute Lymphocytes 0.3 10^3/uL (1.2-3.4); Absolute Monocytes 0.5 10^3/uL (0.1-0.6); Absolute Neutrophils 5.6 10^3/uL (1.4-6.5); Hematocrit 29.2 % (39.0-52.0); Mean Corp Hgb Conc. 34.2 g/dL (33.0-37.0); Mean Corpuscular Hgb 30.4 pg (27.0-31.0); Mean Corpuscular Volume 88.8 fL (80.0-94.0); Mean Platelet Volume 8.9 fL (7.4-10.4); Nucleated Red Blood Cells % 0 % (-); Platelet Count 155 10^3/uL (130-400); Red Blood Cell Count 3.29 10^6/uL (4.70-6.10); White Blood Cell Count 6.6 10^3/uL (4.8-10.8)
[2024-06-11 17:02] LABS: ALT (SGPT) 17 U/L (0-50); AST (SGOT) 24 U/L (17-59); Albumin 4.1 g/dl (3.5-5.0); Alkaline Phosphatase 108 U/L (38-126); Blood Urea Nitrogen 51 mg/dl (9-20); Carbon Dioxide 19 mmol/L (22-30); Chloride 94 mmol/L (98-107); Estimated Creatinine Clearance 22 ml/min; Glucose 160 mg/dl (70-99); Potassium 4.7 mmol/L (3.5-5.1); Sodium 126 mmol/L (135-145); Total Bilirubin 0.4 mg/dl (0.2-1.3); Total Protein 6.5 g/dl (6.3-8.2); eGFR 18.81
[2024-06-11 17:42] VITALS: BP 148/98
== END 2024-06-11 18:13 | disposition home or self-care (01) ==
LOC: EMR 11:31
PROVIDERS: EMERGENCY PHYSICIAN Emergency Medicine; FAMILY PHYSICIAN Nurse Practitioner
DX: M54.2 Cervicalgia (principal); I13.0 Hypertensive heart and chronic kidney disease with heart failure and stage 1 through stage 4 chronic kidney disease, or unspecified chronic kidney disease; I50.9 Heart failure, unspecified; E11.22 Type 2 diabetes mellitus with diabetic chronic kidney disease; N18.9 Chronic kidney disease, unspecified; Z87.891 Personal history of nicotine dependence; Z94.0 Kidney transplant status
CPT/HCPCS: 99283; 96374; 72040; 80053; 85025

== ENCOUNTER 2024-06-14 18:59 | Emergency (ER) | payer MEDICARE, OTHER, SELFPAY ==
[2024-06-14 19:03] VITALS: BP 149/80
[2024-06-14 19:11] LABS: Glucose - Point of Care 167 mg/dl (70-99)
[2024-06-14 20:01] VITALS: BP 172/87
[2024-06-14 20:17] VITALS: BMI 30.5
--- NOTE | 2024-06-14 20:24 | ED.GENMED ---
History of Present Illness
General
Chief Complaint: Head Injury
Source: patient and spouse
Exam Limitations: none
Time Seen by Provider: 06/14/24 20:06
History of Present Illness
History of Present Illness:
Patient was home with his daughter for the day. got home from work and almost immediately upon returning from her a thud. Patient was outside his room leaning against a wall with his head against the wall. Patient does not recall this event.
Patient has been acting abnormally throughout the day. Does not recall hitting his head. No complaints except for ongoing neck pain which he was here for the other day. This been going on for months.
Past History
Past History
ED Past Medical History: CHF, HTN, NIDDM, Renal failure and Other (renal transplant)
ED Past Surgical History: Urological (Kidney transplant 2020) and Other (Fistula)
Social History
Tobacco: Former smoker
Alcohol: Daily (Wine)
Drug: None
Personal:
Living: with family
Employment: Employed
Review of Systems
Review of Systems
All Other Systems: Not applicable
Constitutional: Denies fever or chills
Respiratory: Reports no symptoms
Cardiac: Reports no symptoms
Phy Exam
Physical Exam
Physical Exam:
TRAUMA EXAM:
VITAL SIGNS: Vital signs reviewed, cooperative
DISTRESS: No active disease
EYES: Pupils reactive, no orbital trauma
NOSE: No deformity or epistaxis
FACE AND SCALP: 1.5 cm abrasion to the posterior medial scalp. No depression. No hematoma.
NECK: Supple nontender
BACK: Back nontender, pelvis stable to compression
RESPIRATORY: No distress, breath sounds normal, no tender chest wall
CARDIAC: No murmur, pulses equal and strong
ABDOMEN: Soft nontender bowel sounds normal
SKIN: Skin intact no bleeding, color normal
EXTREMITIES: Nontender
NEUROLOGICAL: Alert, oriented, no motor deficits. Some slurred speech. Appears mildly intoxicated clinically
PSYCH: Mood affect normal
Course
Orders/Labs/Results
Orders:
Orders
06/14/24 19:[address] [CT Head W/o Iv Contrast] Urgent
Comment:
Reason For Exam: trauma, laceration
06/14/24 20:13
Cardiac Monitoring- Treatment ONCE
IV Insert/Care/Rem.- Treatment PRN
Pulse Ox/cont/shift [RESP] Stat
Quantity: 1
06/14/24 20:14
Electrocardiogram (*1) Stat
Reason for Study: Other
Other Reason for Exam: overdose
CT Cervical Spine W/o Iv Contr Urgent
Comment:
Reason For Exam: Fall head injury increased neck pain
Cardiac Monitoring- Treatment ONCE
EKG- Treatment ONCE
06/14/24 20:30
Alcohol Urgent
Complete Blood Count/With Diff Urgent
Comprehensive Metabolic Panel Urgent
PTT Urgent
Prothrombin Time Urgent
Abnormal Lab Results
06/14/24 06/14/24
19:10 20:30
RBC 3.10 L 10^6/uL
(4.70-6.10)
Hgb 9.5 L g/dL
(13.0-18.0)
Hct 28.1 L %
(39.0-52.0)
Abs Immat Gran (auto) 0.1 H 10^3/uL
(0-0.05)
Absolute Lymphs (auto) 0.4 L 10^3/uL
(1.2-3.4)
Immature Gran % 2.0 H %
(0-0.5)
Neutrophils % 85.4 H %
(42.2-75.2)
Lymphocytes % 5.3 L %
(20.5-51.1)
Sodium 128 L mmol/L
(135-145)
Chloride 93 L mmol/L
(98-107)
Carbon Dioxide 18 L mmol/L
(22-30)
BUN 50 H mg/dl
(9-20)
Creatinine 3.6 H mg/dL
(0.7-1.3)
Glucose 118 H mg/dl
(70-99)
Calcium 8.3 L mg/dl
(8.4-10.2)
POC Glucose 167 H mg/dl
(70-99)
06/14/24 20:30
06/14/24 20:30
Vital Signs
Initial and Last Documented VS:
Initial Vital Signs
Pulse Resp BP Pulse Ox
60 22 149/80 99
06/14/24 19:03 06/14/24 19:03 06/14/24 19:03 06/14/24 19:03
Last Documented Vital Signs
Temp Pulse Resp BP Pulse Ox
98.4 F 73 21 127/79 97
06/14/24 19:08 06/14/24 21:58 06/14/24 21:58 06/14/24 23:40 06/14/24 23:42
*Radiology
Radiology exam reviewed: radiology read reviewed (Negative head CT for acute trauma. Moderate diffuse volume loss. Old lacunar infarct.) and other (CT cervical spine. Severe facet arthrosis. Severe significant degenerative changes. Spinal cord
compression central cord stenosis and bilateral foramen narrowing)
*Critical Care Note
Total Time (30-74mins, 75-104mins- exclusive of procedures): Not Applicable
Update Note
Update Note:
Patient dressed without issues. Neurologically stable. Transient neurochanges clearly were secondary to alcohol. Neck pain is unchanged to prior to the fall and he has no acute neurologic symptoms. Reviewed CT report with neurosurgery. They are
in agreement that this needs no emergent treatment just needs follow-up. Patient and are comfortable with this approach
ED Attending Note
-
Portions of this chart may have been created with voice recognition software.� Occasional wrong word or��sound alike� substitutions may have occurred due to the inherent limitations of voice recognition software.
Discharge Plan
Departure
Patient Disposition: Home (Routine Discharge)
Date of Disposition: 06/14/24
Time of Disposition: 23:34
Patient with high blood pressure during this ER visit?: Yes
Discharge Problem:
Fall/head injury, Scalp abrasion, Chronic hyponatremia, Chronic anemia, Severe degenerative cervical spine, Spinal stenosis cervical spine, Alcohol intoxication
Instructions: Neck pain, Wound Care (DC), Head Injury in Adults (DC), Hyponatremia, Cervical spinal stenosis, BLOOD PRESSURE
Prescriptions:
No Action
Tradjenta 5 MG tablet
5 mg PO DAILY
gabapentin 300 MG capsule
300 mg PO HS
aspirin 81 MG tablet,chewable
81 mg PO DAILY
prednisone 5 mg Tablet
5 mg PO DAILY
acetaminophen [Tylenol Extra Strength] 500 mg Tablet
1,000 mg PO PRN PRN (Reason: mild pain)
mycophenolate sodium 180 mg tablet,delayed release (DR/EC)
180 mg PO TID
pantoprazole 40 mg Tablet,Delayed Release (Dr/Ec)
40 mg PO DAILY
ezetimibe 10 mg Tablet
10 mg PO DAILY
carvedilol 6.25 mg Tablet
6.25 mg PO BID Qty: 60 0RF
sodium bicarbonate 650 mg Tablet
650 mg PO DAILY Qty: 0 0RF
insulin aspart U-100 [Novolog FlexPen U-100 Insulin] 300 UNITS/3 ML insulin pen
3 unit SC MEALS Qty: 0 0RF
insulin glargine [Lantus Solostar U-100 Insulin] 300 UNITS/3 ML insulin pen
5 unit SC DAILY@1200 Qty: 0 0RF
furosemide 80 mg Tablet
80 mg PO BID Qty: 60 0RF
isosorbide dinitrate 30 mg Tablet
30 mg PO DAILY
escitalopram oxalate [Lexapro] 20 mg Tablet
20 mg PO DAILY
insulin aspart U-100 [Novolog FlexPen U-100 Insulin] 100 unit/mL (3 mL) Insulin Pen
3 unit SC DAILY
belatacept 250 mg Recon Soln
250 mg IV Q30D
labetalol 200 mg Tablet
200 mg PO BID
metolazone 5 mg Tablet
5 mg PO DAILY PRN (Reason: Weight >182 lbs)
Rx Instructions:
1 tablet 30 minutes before lasix as needed for weight greater than 182 lbs, no more than twice a week
hydralazine 100 mg Tablet
100 mg PO BID
pravastatin 40 mg Tablet
40 mg PO DAILY
sucralfate 1 gram Tablet
1 g PO BID
polysaccharide iron complex 150 mg iron Capsule
150 mg PO DAILY
famotidine 40 mg Tablet
40 mg PO DAILY
spironolactone 25 mg Tablet
25 mg PO DAILY
epinephrine [EpiPen 2-Manny] 0.3 mg/0.3 mL Auto-Injector
0.3 mg IM ONCE PRN (Reason: bee sting)
mirabegron [Myrbetriq] 50 mg Tablet Extended Release 24 Hr
50 mg PO DAILY
oxycodone 5 mg tablet
5 mg PO Q6H PRN (Reason: Pain) Qty: 14 0RF
Referrals:
Minal Chambers MD [Active] - Follow up in 2-3 days
UNKNOWN - PT DOES,NOT KNOW [Family Provider] -
Activity Restrictions/Additional Instructions:
Follow-up with your primary physician. Recommend getting your sodium level repeated in a week
Follow-up this week with neurosurgery either through your appointment or the above neurosurgeon
Interventions
Interventions:
*Risk Screen - Suicide Last Done: 06/14/24 20:17
*General Assessment Last Done: 06/14/24 20:17
*Neglect/Abuse Screening Last Done: 06/14/24 20:17
ED- Fall Risk Assessment Last Done: 06/14/24 20:17
*ED COVID-19 Vaccine History Last Done: 06/14/24 20:17
*Nursing Disposition Last Done: 06/14/24 23:52
ED- Neurological Assessment Last Done: 06/14/24 20:17
ED-Skin Assessment Last Done: 06/14/24 20:17
Discharge Date and Time
Discharge Date/Time: 06/14/24 23:53
Print Language: PORTUGUESE
[2024-06-14 20:38] LABS: % Basophils 0.6 % (0-2); % Eosinophils 0.5 % (0-6); % Lymphocytes 5.3 % (20.5-51.1); % Monocytes 6.2 % (1.7-9.3); % Neutrophils 85.4 % (42.2-75.2); Absolute Immature Granulocytes 0.1 10^3/uL (0-0.05); Absolute Lymphocytes 0.4 10^3/uL (1.2-3.4); Absolute Monocytes 0.4 10^3/uL (0.1-0.6); Absolute Neutrophils 5.6 10^3/uL (1.4-6.5); Hematocrit 28.1 % (39.0-52.0); Hemoglobin 9.5 g/dL (13.0-18.0); Mean Corp Hgb Conc. 33.8 g/dL (33.0-37.0); Mean Corpuscular Hgb 30.6 pg (27.0-31.0); Mean Corpuscular Volume 90.6 fL (80.0-94.0); Mean Platelet Volume 8.5 fL (7.4-10.4); Nucleated Red Blood Cells % 0 % (-); Platelet Count 186 10^3/uL (130-400); Red Cell Dist. Width 12.8 % (11.5-14.5); White Blood Cell Count 6.6 10^3/uL (4.8-10.8)
[2024-06-14 20:49] LABS: APTT 25.1 Sec (23.4-35.0)
[2024-06-14 20:58] LABS: ALT (SGPT) 16 U/L (0-50); AST (SGOT) 26 U/L (17-59); Albumin 4.3 g/dl (3.5-5.0); Alkaline Phosphatase 101 U/L (38-126); Blood Urea Nitrogen 50 mg/dl (9-20); Calcium 8.3 mg/dl (8.4-10.2); Carbon Dioxide 18 mmol/L (22-30); Chloride 93 mmol/L (98-107); Estimated Creatinine Clearance 22 ml/min; Glucose 118 mg/dl (70-99); Potassium 4.7 mmol/L (3.5-5.1); Sodium 128 mmol/L (135-145); Total Bilirubin 0.2 mg/dl (0.2-1.3); Total Protein 6.6 g/dl (6.3-8.2); eGFR 18.18
[2024-06-14 21:00] VITALS: BP 152/79
[2024-06-14 21:03] LABS: INR 1.09; PT 14.4 Sec (11.4-14.6)
[2024-06-14 21:08] LABS: Alcohol 294 mg/dl
[2024-06-14 23:40] VITALS: BP 127/79
== END 2024-06-14 23:53 | disposition home or self-care (01) ==
LOC: EMR 18:59
PROVIDERS: EMERGENCY PHYSICIAN Emergency Medicine
DX: S09.90XA Unspecified injury of head, initial encounter (principal); S01.01XA Laceration without foreign body of scalp, initial encounter; W19.XXXA Unspecified fall, initial encounter; Z87.891 Personal history of nicotine dependence; E87.1 Hypo-osmolality and hyponatremia; M48.02 Spinal stenosis, cervical region; D64.9 Anemia, unspecified; F10.129 Alcohol abuse with intoxication, unspecified; I11.0 Hypertensive heart disease with heart failure; E11.9 Type 2 diabetes mellitus without complications; I50.9 Heart failure, unspecified; G31.89 Other specified degenerative diseases of nervous system
CPT/HCPCS: 99285; 70450; 72125; 80053; 82077; 82962; 85025; 85610; 85730; 93005

== ENCOUNTER 2024-06-16 11:19 | Emergency (ER) | payer MEDICARE, OTHER, SELFPAY ==
[2024-06-16 11:22] VITALS: BP 205/99; BMI 26.6
[2024-06-16 11:23] VITALS: BP 205/99
--- NOTE | 2024-06-16 11:47 | ED.GENMED ---
History of Present Illness
General
Chief Complaint: Musculo-Skeletal Complaint
Source: patient and spouse
Time Seen by Provider: 06/16/24 11:27
History of Present Illness
History of Present Illness:
64-year-old male who presents after he fell last night. States that he tripped over a piece of PVC trying to get to an electrical box. Complains of left shoulder pain. Has recently had some back pain which limited him from getting here. Also
specifically denies head injury, neck neck injury or back injury. He does admit he has been dealing with chronic pain and is scheduled to see an orthopedic doctor this week. Spouse states that he has been dealing with chronic neck and back pain
but that is not new. Did have a new AV graft placed less than a month ago.
Past History
Past History
ED Past Medical History: CHF, HTN, NIDDM, Renal failure and Other (renal transplant)
ED Past Surgical History: Urological (Kidney transplant 2019) and Other (Fistula)
Social History
Tobacco: Former smoker
Alcohol: Daily (Wine)
Drug: None
Personal:
Living: with family
Employment: Employed
Phy Exam
Physical Exam
Physical Exam:
CONSTITUTIONAL Vital signs reviewed, Patient alert and oriented to person, place and time. Well-appearing
HEAD atraumatic, normocephalic.
EYES eyelids normal to inspection, Extraocular muscles intact, Conjunctiva normal, Sclera normal.
NECK normal range of motion, Trachea midline, no jugular venous distention.
RESP no respiratory distress
BACK No obvious deformities
UPPER EXTREMITY left upper extremity held in internal rotation. Empty glenoid noted. Normal thrill at his AV graft. Normal distal pulses. Normal distal cap refill. Normal gross sensation. Unable to range left shoulder. There is an abrasion
noted proximal forearm just proximal to the olecranon.
LOWER EXTREMITY Gross range of motion normal, Gross motor strength normal
NEURO Speech normal, No focal motor deficits include, Javier coma scale 15, Memory normal, Cranial Nerves intact to screening exam.
SKIN Skin warm, dry, and normal in color.
PSYCHIATRIC Patient oriented to person place and time, Normal affect.
Course
Orders/Labs/Results
Orders:
Orders
06/16/24 11:30
Shoulder, Left, Trauma CR [CR Shoulder, Trauma - Left] Urgent
Comment:
Reason For Exam: Fall/Pain
06/16/24 12:20
Morphine Sulfate 4 mg IV NOW STA
06/16/24 12:21
Morphine Sulfate 4 mg .ROUTE .STK-MED ONE
06/16/24 12:44
Shoulder, Left, Trauma CR [CR Shoulder, Trauma - Left] Urgent
Comment:
Reason For Exam: post reduction
Vital Signs
Initial and Last Documented VS:
Initial Vital Signs
BP
205/99
06/16/24 11:22
Last Documented Vital Signs
Temp Pulse Resp BP Pulse Ox
97.8 F 76 21 207/91 99
06/16/24 11:23 06/16/24 12:49 06/16/24 12:49 06/16/24 13:00 06/16/24 12:30
Procedures
Joint/Fracture Reduction
Left Anterior:
Indication for procedure:: Dislocation
Procedure completed by: Dr. Coulter
Consent form signed: No
If no, reason: Emergency procedure
Joint reduced: without anesthesia
Further treatement: needs re-check only
Post reduction exam: stable
Capillary Refill: normal
MDM/Problems Addressed
Differential Diagnosis Includes:
Humerus fracture, clavicular fracture, shoulder dislocation
MDM/Problems Addressed:
Anterior shoulder dislocation, uncontrolled hypertension, chronic kidney disease, AV graft, abrasion
*Radiology
Radiology exam reviewed: preliminary read by ED provider (Anterior shoulder dislocation)
*Pulse Oximetry
Patient hypoxic: no
*Critical Care Note
Total Time (30-74mins, 75-104mins- exclusive of procedures): Not Applicable
Data Reviewed
Review of Other/Old Records Reveals: Operative Reports (Operative report from Dr. Cummings reviewed from May 20, 2024 revealing AV graft placement)
Source: patient and spouse
Prescriptions/Medications Considered But Not Given:
Considered sedation but patient tolerated procedure without sedation
Patient Management
Escalation/DeEscalation of care consider admission/obs:
Shoulder reduced. AV graft on left side appears intact. He does have an abrasion to his left elbow. Normal distal pulses. Sling applied. Outpatient orthopedic follow-up recommended
ED Attending Note
-
Portions of this chart may have been created with voice recognition software.� Occasional wrong word or��sound alike� substitutions may have occurred due to the inherent limitations of voice recognition software.
Discharge Plan
Departure
Patient Disposition: Home (Routine Discharge)
Date of Disposition: 06/16/24
Time of Disposition: 13:52
Patient with high blood pressure during this ER visit?: Yes
Discharge Problem:
Chronic kidney disease, Anterior shoulder dislocation
Instructions: Shoulder Dislocation (DC), BLOOD PRESSURE
Prescriptions:
No Action
Tradjenta 5 MG tablet
5 mg PO DAILY
gabapentin 300 MG capsule
300 mg PO HS
aspirin 81 MG tablet,chewable
81 mg PO DAILY
prednisone 5 mg Tablet
5 mg PO DAILY
acetaminophen [Tylenol Extra Strength] 500 mg Tablet
1,000 mg PO PRN PRN (Reason: mild pain)
mycophenolate sodium 180 mg tablet,delayed release (DR/EC)
180 mg PO TID
pantoprazole 40 mg Tablet,Delayed Release (Dr/Ec)
40 mg PO DAILY
ezetimibe 10 mg Tablet
10 mg PO DAILY
carvedilol 6.25 mg Tablet
6.25 mg PO BID Qty: 60 0RF
sodium bicarbonate 650 mg Tablet
650 mg PO DAILY Qty: 0 0RF
insulin aspart U-100 [Novolog FlexPen U-100 Insulin] 300 UNITS/3 ML insulin pen
3 unit SC MEALS Qty: 0 0RF
insulin glargine [Lantus Solostar U-100 Insulin] 300 UNITS/3 ML insulin pen
5 unit SC DAILY@1200 Qty: 0 0RF
furosemide 80 mg Tablet
80 mg PO BID Qty: 60 0RF
isosorbide dinitrate 30 mg Tablet
30 mg PO DAILY
escitalopram oxalate [Lexapro] 20 mg Tablet
20 mg PO DAILY
insulin aspart U-100 [Novolog FlexPen U-100 Insulin] 100 unit/mL (3 mL) Insulin Pen
3 unit SC DAILY
belatacept 250 mg Recon Soln
250 mg IV Q30D
labetalol 200 mg Tablet
200 mg PO BID
metolazone 5 mg Tablet
5 mg PO DAILY PRN (Reason: Weight >182 lbs)
Rx Instructions:
1 tablet 30 minutes before lasix as needed for weight greater than 182 lbs, no more than twice a week
hydralazine 100 mg Tablet
100 mg PO BID
pravastatin 40 mg Tablet
40 mg PO DAILY
sucralfate 1 gram Tablet
1 g PO BID
polysaccharide iron complex 150 mg iron Capsule
150 mg PO DAILY
famotidine 40 mg Tablet
40 mg PO DAILY
spironolactone 25 mg Tablet
25 mg PO DAILY
epinephrine [EpiPen 2-Manny] 0.3 mg/0.3 mL Auto-Injector
0.3 mg IM ONCE PRN (Reason: bee sting)
mirabegron [Myrbetriq] 50 mg Tablet Extended Release 24 Hr
50 mg PO DAILY
oxycodone 5 mg tablet
5 mg PO Q6H PRN (Reason: Pain) Qty: 14 0RF
Referrals:
Germaine Vincent MD [Family Provider] -
Activity Restrictions/Additional Instructions:
Please ice your shoulder and rest it in the sling. Please see orthopedics this week for follow-up and reevaluation. Return immediately for numbness, tingling, worsening pain or any other concerns.
Interventions
Interventions:
*Risk Screen - Suicide Last Done: 06/16/24 11:27
*General Assessment Last Done: 06/16/24 11:27
*Neglect/Abuse Screening Last Done: 06/16/24 11:27
ED- Fall Risk Assessment Last Done: 06/16/24 11:29
*ED COVID-19 Vaccine History Last Done: 06/16/24 11:26
ED-Musculoskeletal Assessment Last Done: 06/16/24 11:30
Discharge Date and Time
Print Language: DUTCH
[2024-06-16 12:13] VITALS: BP 177/92
[2024-06-16] MEDS: MORPHINE SULFATE 4 MG IV (12:21)
[2024-06-16 13:00] VITALS: BP 207/91
[2024-06-16 14:02] VITALS: BP 180/97
== END 2024-06-16 14:14 | disposition home or self-care (01) ==
LOC: EMR 11:19
PROVIDERS: EMERGENCY PHYSICIAN Emergency Medicine; FAMILY PHYSICIAN Internal Medicine
DX: S43.015A Anterior dislocation of left humerus, initial encounter (principal); W18.09XA Striking against other object with subsequent fall, initial encounter; N18.9 Chronic kidney disease, unspecified; I13.0 Hypertensive heart and chronic kidney disease with heart failure and stage 1 through stage 4 chronic kidney disease, or unspecified chronic kidney disease; I50.9 Heart failure, unspecified; Z87.891 Personal history of nicotine dependence
CPT/HCPCS: 99284; 23650; 96374; 73030

== ENCOUNTER 2024-07-11 18:03 | Outpatient (RCR) | payer MEDICARE, OTHER, SELFPAY | END 2024-07-11 23:59 | disposition home or self-care (01) | LOC: RPT 18:03 | PROVIDERS: ATTENDING PHYSICIAN Orthopaedic Surgery; FAMILY PHYSICIAN Internal Medicine | DX: M47.812 Spondylosis without myelopathy or radiculopathy, cervical region (principal); Z73.6 Limitation of activities due to disability; M25.512 Pain in left shoulder | CPT/HCPCS: 97110; 97140; 97163 ==

== ENCOUNTER → 2024-07-19 13:13 | Outpatient (REF) | payer MEDICARE, OTHER, SELFPAY | LOC: RAD 13:13 | PROVIDERS: ATTENDING PHYSICIAN Physician Assistant | DX: I77.0 Arteriovenous fistula, acquired (principal); I65.23 Occlusion and stenosis of bilateral carotid arteries; Z98.890 Other specified postprocedural states | CPT/HCPCS: 93880; 93990 ==

== ENCOUNTER 2024-07-25 17:53 | Outpatient (RCR) | payer MEDICARE, OTHER, SELFPAY | END 2024-07-25 23:59 | disposition home or self-care (01) | LOC: RPT 17:53 | PROVIDERS: ATTENDING PHYSICIAN Orthopaedic Surgery; FAMILY PHYSICIAN Internal Medicine | DX: M47.812 Spondylosis without myelopathy or radiculopathy, cervical region (principal); Z73.6 Limitation of activities due to disability; M25.512 Pain in left shoulder | CPT/HCPCS: 97010; 97110; 97530 ==

== ENCOUNTER → 2024-07-26 10:29 | Outpatient (REF) | payer MEDICARE, OTHER, SELFPAY | LOC: PAVMRI 10:29 | PROVIDERS: ATTENDING PHYSICIAN Nurse Practitioner | DX: M54.2 Cervicalgia (principal) | CPT/HCPCS: 72141 ==

== ENCOUNTER → 2024-10-06 07:21 | Outpatient (REF) | payer MEDICARE, OTHER, SELFPAY | LOC: MRI 07:21 | PROVIDERS: ATTENDING PHYSICIAN Orthopaedic Surgery Adult Reconstructive Orthopaedic Surgery; FAMILY PHYSICIAN Internal Medicine | DX: M16.11 Unilateral primary osteoarthritis, right hip (principal) | CPT/HCPCS: 73721 ==

== ENCOUNTER → 2024-10-25 08:49 | Outpatient (REF) | payer MEDICARE, OTHER, SELFPAY | LOC: RAD 08:49 | PROVIDERS: ATTENDING PHYSICIAN Surgery Vascular Surgery; FAMILY PHYSICIAN Internal Medicine | DX: N18.4 Chronic kidney disease, stage 4 (severe) (principal); I77.0 Arteriovenous fistula, acquired | CPT/HCPCS: 93990 ==

== ENCOUNTER → 2024-11-16 10:21 | Outpatient (REF) | payer MEDICARE, OTHER, SELFPAY ==
[2024-11-16 12:30] LABS: Blood Urea Nitrogen 90 mg/dl (9-20); Calcium 8.7 mg/dl (8.4-10.2); Carbon Dioxide 20 mmol/L (22-30); Chloride 102 mmol/L (98-107); Glucose 198 mg/dl (70-99); HDL Cholesterol 64 mg/dl; LDL Cholesterol, Calculated 71 mg/dl; Potassium 4.1 mmol/L (3.5-5.1); Sodium 135 mmol/L (135-145); Total Cholesterol 151 mg/dl (50-199); Triglyceride 80 mg/dl (10-149); Very Low Density Lipoprotein 16 mg/dl (0-30); eGFR 15.56
== END ==
LOC: REG 10:21
PROVIDERS: ATTENDING PHYSICIAN Internal Medicine Cardiovascular Disease; FAMILY PHYSICIAN Hospitalist
DX: K52.9 Noninfective gastroenteritis and colitis, unspecified (principal); R30.0 Dysuria; E78.00 Pure hypercholesterolemia, unspecified
CPT/HCPCS: 36415; 80048; 80061

== ENCOUNTER → 2024-11-18 10:06 | Outpatient (REF) | payer MEDICARE, OTHER, SELFPAY ==
[2024-11-18 10:51] LABS: Urine Albumin 3+ (Neg - Trace); Urine Bilirubin Negative (Negative); Urine Character Clear (Clear); Urine Color Yellow; Urine Glucose Negative (Negative); Urine Ketone Negative (Negative); Urine Leukocyte Negative (Negative); Urine Nitrite Negative (Negative); Urine Occult Blood Negative (Negative); Urine Urobilinogen Negative (Neg - 1+)
[2024-11-18 11:09] LABS: Urine Bacteria Few (Negative); Urine Red Blood Cell 0-2 /HPF (0-2); Urine White Cell 0-2 /HPF (0-5)
== END ==
LOC: REG 10:06
PROVIDERS: ATTENDING PHYSICIAN Hospitalist
DX: K52.9 Noninfective gastroenteritis and colitis, unspecified (principal); R30.0 Dysuria
CPT/HCPCS: 81003; 81015; 87045; 87046; 87427; 89055

== ENCOUNTER → 2024-12-11 16:14 | Outpatient (REF) | payer MEDICARE, OTHER, SELFPAY | LOC: RCS 16:14 | PROVIDERS: ATTENDING PHYSICIAN Internal Medicine Cardiovascular Disease; FAMILY PHYSICIAN Internal Medicine | DX: I50.32 Chronic diastolic (congestive) heart failure (principal) | CPT/HCPCS: 93306 ==

== ENCOUNTER 2025-04-11 08:16 | Outpatient (RCR) | payer MEDICARE, OTHER, SELFPAY | END 2025-04-11 23:59 | disposition home or self-care (01) | LOC: RPT 08:16 | PROVIDERS: ATTENDING PHYSICIAN Orthopaedic Surgery; FAMILY PHYSICIAN Internal Medicine | DX: Z47.89 Encounter for other orthopedic aftercare (principal); M47.812 Spondylosis without myelopathy or radiculopathy, cervical region; M48.02 Spinal stenosis, cervical region; M47.12 Other spondylosis with myelopathy, cervical region; Z73.6 Limitation of activities due to disability; M62.81 Muscle weakness (generalized); R26.89 Other abnormalities of gait and mobility; M43.22 Fusion of spine, cervical region | CPT/HCPCS: 97110; 97112; 97162; 97530 ==

== ENCOUNTER 2025-04-30 07:12 | Outpatient (RCR) | payer MEDICARE, OTHER, SELFPAY | END 2025-05-06 23:59 | disposition home or self-care (01) | LOC: RPT 07:12 | PROVIDERS: ATTENDING PHYSICIAN Orthopaedic Surgery; FAMILY PHYSICIAN Internal Medicine | DX: Z47.89 Encounter for other orthopedic aftercare (principal); M47.812 Spondylosis without myelopathy or radiculopathy, cervical region; M48.02 Spinal stenosis, cervical region; M47.12 Other spondylosis with myelopathy, cervical region; Z73.6 Limitation of activities due to disability; M62.81 Muscle weakness (generalized); R26.89 Other abnormalities of gait and mobility; M43.22 Fusion of spine, cervical region | CPT/HCPCS: 97110; 97112 ==

== ENCOUNTER 2025-06-04 06:52 | Outpatient (RCR) | payer MEDICARE, OTHER, SELFPAY | END 2025-06-04 23:59 | disposition home or self-care (01) | LOC: RPT 06:52 | PROVIDERS: ATTENDING PHYSICIAN Orthopaedic Surgery; FAMILY PHYSICIAN Internal Medicine | DX: M47.812 Spondylosis without myelopathy or radiculopathy, cervical region; M48.02 Spinal stenosis, cervical region; M47.12 Other spondylosis with myelopathy, cervical region; Z47.89 Encounter for other orthopedic aftercare; Z73.6 Limitation of activities due to disability; M62.81 Muscle weakness (generalized); R26.89 Other abnormalities of gait and mobility; M43.22 Fusion of spine, cervical region | CPT/HCPCS: 97110; 97112 ==

== ENCOUNTER → 2025-06-04 06:57 | Outpatient (REF) | payer MEDICARE, OTHER, SELFPAY | LOC: MRI 06:57 | PROVIDERS: ATTENDING PHYSICIAN Student in an Organized Health Care Education/Training Program; FAMILY PHYSICIAN Internal Medicine | DX: M54.16 Radiculopathy, lumbar region (principal) | CPT/HCPCS: 72148 ==